=== PATIENT | male | born 1950 | race Caucasian/White ===

== ENCOUNTER 2021-12-28 14:17 | Outpatient (REF) | payer MEDICARE, SELFPAY ==
--- NOTE | ~2021-12-28 | XR_ITS ---
EXAMINATION: SACROILIAC JOINTS AND RIGHT HIP X-RAY CLINICAL INFORMATION: Sacrococcygeal disorder COMPARISON: None TECHNIQUE: 3 views of the sacroiliac joints, one view of the pelvis and 2 views of the right hip FINDINGS: Sacroiliac joints: The sacroiliac joints are normal-appearing. No evidence of erosive or proliferative arthritis is seen. Pelvis: No fracture or dislocation or bone lesion is seen. The left hip joint is normal. There is soft tissue arterial calcification. There are postsurgical changes to the lower lumbar spine. Right hip: There is severe right hip arthritis with joint space narrowing and osteophyte formation. There is soft tissue arterial calcification. XR/XR sacroiliac joint min 3V IMPRESSION: Severe right hip osteoarthritis. Postsurgical changes to the lower lumbar spine. Normal-appearing sacroiliac joints.
--- NOTE | ~2021-12-28 | XR_ITS ---
EXAMINATION: SACROILIAC JOINTS AND RIGHT HIP X-RAY CLINICAL INFORMATION: Sacrococcygeal disorder COMPARISON: None TECHNIQUE: 3 views of the sacroiliac joints, one view of the pelvis and 2 views of the right hip FINDINGS: Sacroiliac joints: The sacroiliac joints are normal-appearing. No evidence of erosive or proliferative arthritis is seen. Pelvis: No fracture or dislocation or bone lesion is seen. The left hip joint is normal. There is soft tissue arterial calcification. There are postsurgical changes to the lower lumbar spine. Right hip: There is severe right hip arthritis with joint space narrowing and osteophyte formation. There is soft tissue arterial calcification. XR/XR hip RT w PEL1V IMPRESSION: Severe right hip osteoarthritis. Postsurgical changes to the lower lumbar spine. Normal-appearing sacroiliac joints.
== END 2021-12-28 14:18 | disposition home or self-care (01) ==
LOC: HO.XRAY 14:17
PROVIDERS: PCP Internal Medicine; Visit Provider Nurse Practitioner Family
DX: M53.3 Sacrococcygeal disorders, not elsewhere classified (principal); M25.551 Pain in right hip; M54.16 Radiculopathy, lumbar region; M96.1 Postlaminectomy syndrome, not elsewhere classified; M16.11 Unilateral primary osteoarthritis, right hip
CPT/HCPCS: 72202; 73502; 99202

== ENCOUNTER → 2022-01-11 08:54 | Outpatient (BNVA) | payer MEDICARE, SELFPAY | PROVIDERS: PCP Internal Medicine; Visit Provider Orthopaedic Surgery | DX: M16.11 Unilateral primary osteoarthritis, right hip (principal) | CPT/HCPCS: 99202 ==

== ENCOUNTER → 2022-05-20 10:24 | Outpatient (BNVA) | payer MEDICARE, SELFPAY | PROVIDERS: PCP Internal Medicine; Visit Provider Psychiatry & Neurology Psychiatry | DX: M16.11 Unilateral primary osteoarthritis, right hip (principal); F32.9 Major depressive disorder, single episode, unspecified | CPT/HCPCS: 90833; 99212 ==

== ENCOUNTER → 2022-08-18 09:49 | Outpatient (BNVA) | payer MEDICARE, SELFPAY | PROVIDERS: PCP Internal Medicine; Visit Provider Orthopaedic Surgery | DX: Z13.89 Encounter for screening for other disorder (principal) ==

== ENCOUNTER → 2022-11-09 14:50 | Outpatient (BNVA) | payer MEDICARE, SELFPAY | PROVIDERS: PCP Internal Medicine; Visit Provider Psychiatry & Neurology Psychiatry | DX: F32.4 Major depressive disorder, single episode, in partial remission (principal); C64.9 Malignant neoplasm of unspecified kidney, except renal pelvis; C67.9 Malignant neoplasm of bladder, unspecified | CPT/HCPCS: 90833; 99212 ==

== ENCOUNTER 2022-12-30 06:11 | Outpatient (REF) | payer MEDICARE, SELFPAY | END 2022-12-30 06:12 | disposition home or self-care (01) | LOC: HO.HOSX 06:11 | PROVIDERS: Visit Provider Physician Assistant | DX: M16.11 Unilateral primary osteoarthritis, right hip (principal) | CPT/HCPCS: 99212 ==

== ENCOUNTER 2023-01-05 08:04 | Inpatient (IN) | payer MEDICARE, SELFPAY ==
[2022-12-29 12:04] VITALS: BP 120/61; PULSE 54; RESP 16; O2SAT 97; BMI 27.5
--- NOTE | 2022-12-29 12:31 | P.CONAN_ITS ---
Documented by User: Anaya Jay NP 12/30/22 13:28 HPI - Anesthesia Eval Consult details Narrative: PCP clearance pending 72yo M for Right Hip Total Replacement Cardiac optimized. Office eval 11/30/22 Eliquis for afib Pacer in situ for SSS Renal Cell carcinoma with immunotherapy No recent illness No chest pain. No SOB. Uses albuterol inhaler ~1 x weekly Activity limited to hip pain. Able to walk from front entrance to [facility] without symptoms PMFSH Active Problems Active Problems: All Active Problems (Updated 12/29/22 @ 11:56 by Josey Cruz RN) Right hip pain (Acute) Sacroiliac joint dysfunction (Acute) Neuropathy of right lower extremity (Acute) Right lumbar radiculopathy (Acute) Failed back syndrome of lumbar spine (Acute) Osteoarthritis of right hip (Acute) Major depressive disorder in partial remission (Acute) Upper respiratory tract infection (Acute) Bladder cancer (Acute) Renal cancer (Acute) Major depression (Acute) Past Medical History Medical History Atrial fibrillation Bladder cancer CAD (coronary artery disease) Chronic kidney disease Elevated cholesterol HTN (hypertension) Major depression Osteoarthritis Renal cancer Family History Family history of problems with anesthesia: No Surgical History Surgical History H/O colonoscopy History of heart artery stent History of permanent cardiac pacemaker placement History of right nephrectomy History of surgery Hx of cystoscopy S/P lumbar spinal fusion History of Problems with Anesthesia: No Social History Social History Are you a primary rn transitional care to a significant other at home: No Do you presently have visiting nurse or other home services: No Patient Tobacco Use Status: Former Tobacco user Quit Date: 2017 Tobacco use type: Cigarette Years Smoked: 40 Use of substances other than those prescribed or required for medical reasons: No Have you been hit, kicked, punched, or otherwise hurt by someone within the past year? If so, by whom?: No Are you DNR?: No Advance Directives: Yes ( is HCP-copy of HCP form on chart) Advance Directives Information Provided: Yes Advance Directives on File: Yes Advance Directives Date on File: 12/29/22 Recently lost weight without trying: No Eating poorly because of decreased appetite: No Nutrition Risks: No Nutritional Risk Poor oral hygiene: No (upper partial-has only 2 teeth upper, has all own teeth lower) Meds Allergies Allergy/AdvReac Type Severity Reaction Status Date / Time sulfamethoxazole Allergy Intermediate Hives Verified 01/05/23 08:18 [From Bactrim] trimethoprim [From Bactrim] Allergy Intermediate Hives Verified 01/05/23 08:18 Home Medications Medication Instructions Recorded Confirmed Last Taken Type atorvastatin 80 mg tablet 80 mg PO DAILY 12/28/21 12/28/22 01/04/23 History cetirizine 10 mg tablet 10 mg PO DAILY 08/18/22 12/28/22 01/04/23 History fluticasone propionate 50 50 mcg intranasal DAILY 08/18/22 12/28/22 01/04/23 History mcg/actuation nasal spray,suspension apixaban 5 mg tablet (Eliquis) 5 mg PO BID 11/09/22 12/28/22 01/02/23 History furosemide 40 mg tablet 40 mg PO DAILY PRN edema 11/09/22 12/29/22 01/04/23 History metoprolol succinate 50 mg 50 mg PO QAM 11/09/22 12/29/22 01/05/23 06:45 History tablet,extended release 24 hr aspirin 81 mg tablet,delayed 81 mg PO DAILY 12/28/22 12/28/22 01/04/23 History release losartan 25 mg tablet 25 mg PO QAM 12/29/22 12/29/22 01/04/23 History sertraline 100 mg tablet 200 mg PO QAM 12/29/22 12/29/22 01/05/23 06:45 History Exam Exam Date and Time: December 29, 2022 1231 Height,Weight and Vital Signs: Height 5 ft 4 in Weight 72.575 kg Last Vital Signs Pulse 54 12/29/22 12:04 Resp 16 12/29/22 12:04 BP 120/61 12/29/22 12:04 Pulse Ox 97 12/29/22 12:04 O2 Del Method Room Air 12/29/22 12:04 Pertinent Lab Results Pertinent Lab Results: Lab Results 12/29/22 12/29/22 12/29/22 Range/Units 12:20 13:08 13:15 WBC 8.4 (4.8-10.8) X10*3/uL RBC 3.95 L (4.60-5.80) X10*6/uL Hgb 11.2 L (14.0-18.0) g/dl Hct 35.3 L (42.0-52.0) % MCV 89.4 (80.0-98.0) fL MCH 28.4 (27.0-33.0) pg MCHC 31.7 (31.0-36.0) g/dl RDW 15.2 (11.0-16.0) % Plt Count 204 (160-400) X10*3/uL MPV 10.1 (9.4-12.4) fL Immature Gran % (Auto) 0.8 H (0.0-0.4) % Neut % (Auto) 76.2 H (45-73) % Lymph % (Auto) 14.1 L (20-40) % [place] % (Auto) 7.8 (2-11) % Eos % (Auto) 0.7 (0-4) % Baso % (Auto) 0.4 (0-2) % Lymph # (Auto) 1.2 (1.2-4.9) X10*3/uL [place] # (Auto) 0.7 (0.1-1.2) X10*3/uL Eos # (Auto) 0.1 (0.0-0.4) X10*3/uL Baso # (Auto) 0.0 (0.0-0.2) X10*3/uL Abs Immat Gran (auto) 0.07 H (0.00-0.03) X10*3/uL Absolute Neuts (auto) 6.4 (2.0-8.3) x10*3/uL Absolute Nucleated RBC 0.000 (0.0-0.012) X10*3/uL Nucleated RBC % (auto) 0.0 (0.0-0.2) /100WBC Sodium (135-145) mmol/L Potassium (3.3-5.1) mmol/L Chloride (96-108) mmol/L Carbon Dioxide (22-29) mmol/L Anion Gap (12-20) BUN (9-16) mg/dL Creatinine (0.5-1.4) mg/dL Estim Creat Clear Calc Estimated GFR Random Glucose (60-115) mg/dL Calcium (8.4-10.2) mg/dL Nasal Screen MRSA (PCR) NEGATIVE (Negative) Nasal S. aureus Screen NEGATIVE (Negative) Nasal MRSA/S.aureus Interp SEE NOTE Blood Type O Positive Antibody Screen NEGATIVE 12/29/22 Range/Units 13:15 WBC (4.8-10.8) X10*3/uL RBC (4.60-5.80) X10*6/uL Hgb (14.0-18.0) g/dl Hct (42.0-52.0) % MCV (80.0-98.0) fL MCH (27.0-33.0) pg MCHC (31.0-36.0) g/dl RDW (11.0-16.0) % Plt Count (160-400) X10*3/uL MPV (9.4-12.4) fL Immature Gran % (Auto) (0.0-0.4) % Neut % (Auto) (45-73) % Lymph % (Auto) (20-40) % [place] % (Auto) (2-11) % Eos % (Auto) (0-4) % Baso % (Auto) (0-2) % Lymph # (Auto) (1.2-4.9) X10*3/uL [place] # (Auto) (0.1-1.2) X10*3/uL Eos # (Auto) (0.0-0.4) X10*3/uL Baso # (Auto) (0.0-0.2) X10*3/uL Abs Immat Gran (auto) (0.00-0.03) X10*3/uL Absolute Neuts (auto) (2.0-8.3) x10*3/uL Absolute Nucleated RBC (0.0-0.012) X10*3/uL Nucleated RBC % (auto) (0.0-0.2) /100WBC Sodium 139 (135-145) mmol/L Potassium 5.3 H (3.3-5.1) mmol/L Chloride 106 (96-108) mmol/L Carbon Dioxide 24 (22-29) mmol/L Anion Gap 14 (12-20) BUN 51 H (9-16) mg/dL Creatinine 1.96 H (0.5-1.4) mg/dL Estim Creat Clear Calc 31.1 Estimated GFR 34 Random Glucose 109 (60-115) mg/dL Calcium 9.8 (8.4-10.2) mg/dL Nasal Screen MRSA (PCR) (Negative) Nasal S. aureus Screen (Negative) Nasal MRSA/S.aureus Interp Blood Type Antibody Screen Narrative Narrative: EKG 11/2022 Aflutter with V-paced rhythm Cardiac cath 10/18/22 Mild disease in left main. First diagnol 60% lesion, Mild disease <30% in RCA. Stent was widely patient. Nonischemic CMP ECHO 09/2022 LV mildly dilated. Nml LV wall thickness. Severely reduced LV systolic functio n. Global hypokinesis. Abnormal (paradoxical) septal motion c/w RV pacer. LVEF 29%. Mildly enlarged RV. Nml RV global systolic fuction. Severely dilated LA Moderate MR Mild TR PASP elevated C/W 04/2020 LV systolic function significantly decreased Pacer Interr 11/2022 [employer] - DDDR 50-130 76% AT/AF STACK SUPERVISOR >99% Airway Mallampati Class: I TM Dist: >3cm Neck ROM: Full Partial: Upper (Only 2 of pt's own teeth remain on top) Heart: RRR Lungs: Faint wheeze RUL, RLL. Clear left Assessment and Plan Assessment Anesthesia Assessment: Anesthesia Plan Discussed and PAT Visit Final Anesthetic Review Family History of Problems with Anesthesia: No History of Problems with Anesthesia: No Documented by User: Juany Simpson MD 01/05/23 10:[facility] Past Medical History Medical History Atrial fibrillation Bladder cancer CAD (coronary artery disease) Chronic kidney disease Elevated cholesterol HTN (hypertension) Major depression Osteoarthritis Renal cancer Surgical History Surgical History H/O colonoscopy History of heart artery stent History of permanent cardiac pacemaker placement History of right nephrectomy History of surgery Hx of cystoscopy S/P lumbar spinal fusion Social History Social History Are you a primary rn transitional care to a significant other at home: No Do you presently have visiting nurse or other home services: No Patient Tobacco Use Status: Former Tobacco user Quit Date: 2017 Tobacco use type: Cigarette Years Smoked: 40 Use of substances other than those prescribed or required for medical reasons: No Have you been hit, kicked, punched, or otherwise hurt by someone within the past year? If so, by whom?: No Are you DNR?: No Advance Directives: Yes ( is HCP-copy of HCP form on chart) Advance Directives Information Provided: Yes Advance Directives on File: Yes Advance Directives Date on File: 12/29/22 Recently lost weight without trying: No Eating poorly because of decreased appetite: No Nutrition Risks: No Nutritional Risk Poor oral hygiene: No (upper partial-has only 2 teeth upper, has all own teeth lower) Meds Allergies Allergy/AdvReac Type Severity Reaction Status Date / Time sulfamethoxazole Allergy Intermediate Hives Verified 01/05/23 08:18 [From Bactrim] trimethoprim [From Bactrim] Allergy Intermediate Hives Verified 01/05/23 08:18 Home Medications Medication Instructions Recorded Confirmed Last Taken Type atorvastatin 80 mg tablet 80 mg PO DAILY 12/28/21 12/28/22 01/04/23 History cetirizine 10 mg tablet 10 mg PO DAILY 08/18/22 12/28/22 01/04/23 History fluticasone propionate 50 50 mcg intranasal DAILY 08/18/22 12/28/22 01/04/23 History mcg/actuation nasal spray,suspension apixaban 5 mg tablet (Eliquis) 5 mg PO BID 11/09/22 12/28/22 01/02/23 History furosemide 40 mg tablet 40 mg PO DAILY PRN edema 11/09/22 12/29/22 01/04/23 History metoprolol succinate 50 mg 50 mg PO QAM 11/09/22 12/29/22 01/05/23 06:45 History tablet,extended release 24 hr aspirin 81 mg tablet,delayed 81 mg PO DAILY 06/12/28/22 01/04/23 History release losartan 25 mg tablet 25 mg PO QAM 12/29/22 12/29/22 01/04/23 History sertraline 100 mg tablet 200 mg PO QAM 12/29/22 12/29/22 01/05/23 06:45 History Assessment and Plan Final Anesthetic Review ASA Class: III Final Preanesthetic Review: No Changes in Pt Med Stat, Meds/Allgs Chart Reviewed, Consent Obtained/Reviewed and Anes Risks/Benef Reviewed Patient Risk: Intermediate Procedure Risk: Intermediate Anesthetic Plan Anesthetic Plan: GA Disposition: Standard PACU
[2022-12-29 13:16] LABS: MANUAL DIFF FLAG NO
[2022-12-29 14:31] LABS: MRSA Nasal PCR NEGATIVE (Negative); SA Nasal PCR NEGATIVE (Negative)
[2022-12-29 14:52] LABS: Basophils Percent Auto 0.4 % (0-2); Eosinophils Absolute Auto 0.1 X10*3/uL (0.0-0.4); Eosinophils Percent Auto 0.7 % (0-4); Hematocrit 35.3 % (42.0-52.0); Hemoglobin 11.2 g/dl (14.0-18.0); Imm Gran Abs Auto 0.07 X10*3/uL (0.00-0.03); Imm Gran Pct Auto 0.8 % (0.0-0.4); Lymphocytes Absolute Auto 1.2 X10*3/uL (1.2-4.9); Lymphocytes Percent Auto 14.1 % (20-40); Mean Corpuscular HGB Conc 31.7 g/dl (31.0-36.0); Mean Corpuscular Hemoglobin 28.4 pg (27.0-33.0); Mean Corpuscular Volume 89.4 fL (80.0-98.0); Mean Platelet Volume 10.1 fL (9.4-12.4); Monocytes Absolute Auto 0.7 X10*3/uL (0.1-1.2); Monocytes Percent Auto 7.8 % (2-11); Neutrophils Absolute Auto 6.4 x10*3/uL (2.0-8.3); Neutrophils Percent Auto 76.2 % (45-73); Platelet Count 204 X10*3/uL (160-400); Red Blood Count 3.95 X10*6/uL (4.60-5.80); Red Cell Distribution Width 15.2 % (11.0-16.0); White Blood Count 8.4 X10*3/uL (4.8-10.8)
[2022-12-29 15:31] LABS: Anion Gap 14 (12-20); Blood Urea Nitrogen 51 mg/dL (9-16); Calcium 9.8 mg/dL (8.4-10.2); Carbon Dioxide 24 mmol/L (22-29); Chloride 106 mmol/L (96-108); Creatinine Clr Calc Pharmacy 31.1; Estimated Glomerular Filt Rate 34; Glucose Random 109 mg/dL (60-115); Potassium 5.3 mmol/L (3.3-5.1); Sodium 139 mmol/L (135-145)
[2023-01-05] VITALS (8 sets, daily range): BP systolic 124–133; BP diastolic 45–70; PULSE 50–64; RESP 16–18; TEMP 36.3–36.7; O2SAT 97–99
--- NOTE | ~2023-01-05 | XR_ITS ---
EXAMINATION: XR PELVIS CLINICAL INFORMATION: Post hip replacement COMPARISON: Previous x-ray 12/28/2021 TECHNIQUE: AP view of the pelvis. FINDINGS: There is a new hip replacement in satisfactory position. No fracture or dislocation. Postoperative changes to the soft tissues. XR/XR pelvis 1-2V IMPRESSION: Satisfactory appearance of right hip replacement.
[2023-01-05] MEDS: oxyCODONE HCl ER 10 MG TAB.ER.12H PO ×2 (08:52→20:34)
[2023-01-05] MEDS: Lactated Ringers 1,000 ML 50 ML IVCONT (09:26)
[2023-01-05 09:27] LABS: Hematocrit 31.4 % (42.0-52.0); Hemoglobin 10.1 g/dl (14.0-18.0)
[2023-01-05 11:45] LABS: Anion Gap 14 (12-20); Blood Urea Nitrogen 43 mg/dL (9-16); Calcium 9.7 mg/dL (8.4-10.2); Carbon Dioxide 24 mmol/L (22-29); Chloride 108 mmol/L (96-108); Creatinine Clr Calc Pharmacy 36.5; Estimated Glomerular Filt Rate 41; Glucose Random 97 mg/dL (60-115); Potassium 5.2 mmol/L (3.3-5.1); Sodium 141 mmol/L (135-145)
--- NOTE | 2023-01-05 11:45 | MHC.SHP ---
Pre-Procedural Eval Section A Date of Service: 01/05/23 The patient is an INPATIENT: No Changes since office visit: No Cold of Flu in the past 2 weeks, No New Medical Problems, No Changes in Medication and No Patient answered all questions The History & Physical has been completed within 30 days and I have reviewed it.: Yes Section B Chief Complaint: s/p RTHA Allergies: Allergies Allergy/AdvReac Type Severity Reaction Status Date / Time sulfamethoxazole Allergy Intermediate Hives Verified 01/05/23 08:18 [From Bactrim] trimethoprim [From Bactrim] Allergy Intermediate Hives Verified 01/05/23 08:18 Plan I have reviewed the history and physical and performed a pertinent physical examination on my patient. No changes have occurred unless specified. Time Spent With Patient Time: Total time managing care of this patient today ____ minutes.
--- NOTE | 2023-01-05 14:31 | P.BOP_ITS ---
Brief Operative Note Date of Service: 01/05/23 Pre-op diagnosis: right hip OA Post-op diagnosis: same Procedure: Right BECCA Implants: Emir Trident2 58 with 2 35 mm screws Emir Accolade2 #5 127 deg with +4/MDM Surgeon: Leopoldo Torres MD Anesthesia: GETA and local Was an Detention Attendant used for this Procedure?: Yes Detention Attendant: Gracie Choi Estimated blood loss (mL): 175 IV fluids (mL): 1,000 Pathology: other Condition: stable Disposition: PACU
--- NOTE | 2023-01-05 14:56 | PHA.MEDREC ---
Pharmacy Consult ? Medication Reconciliation RN has completed the medication reconciliation, pharmacy reviewed.
--- NOTE | 2023-01-05 15:31 | P.CONHOSP_ITS ---
History of Present Illness Data of Consult Service Date: 01/05/23 Requesting physician: Leopoldo Torres Primary Care Provider: Josette Fajardo MD HPI Reason for consult: medical management 72-year-old male with history of paroxysmal atrial fibrillation anticoagulated with Eliquis last taken on 01/02, s/p pacemaker, bladder cancer currently on immunotherapy following with Dr. Whitaker, hyperlipidemia, hypertension, history of renal cancer s/p right nephroureterectomy 2021, CKD stage 3, and coronary artery disease admitted to Orthopedic surgery for management of osteoarthritis of the right hip s/p right BECCA with consult placed is for medicine for medical management. The patient is currently reporting mild pain in the right hip but otherwise has no complaints. He denies any alcohol use, cigarette smoking, or illicit drug use. Review of Systems Review of Systems: General: No fevers, malaise, unintentional weight loss HEENT: No blurred vision, diplopia. No sore throat, nasal congestion, rhinor ravi, sinus pain, ear pain Cardiovascular: No chest pain, palpitations, or leg edema Respiratory: No shortness of breath, wheezing, cough GI: No abdominal pain, nausea, vomiting, diarrhea, constipation, melena, hematochezia : No dysuria, hematuria, increased urinary frequency, decreased urinary output MSK: No myalgia, back pain. +right hip pain Neuro: No headaches, weakness, paresthesias Skin: No rashes or lesions [facility] Medical History Atrial fibrillation Bladder cancer CAD (coronary artery disease) Chronic kidney disease Elevated cholesterol HTN (hypertension) Major depression Osteoarthritis Renal cancer Surgical History H/O colonoscopy History of heart artery stent History of permanent cardiac pacemaker placement History of right nephrectomy History of surgery Hx of cystoscopy S/P lumbar spinal fusion Social History Household Members: Spouse Housing: House Are you a primary health care sanitary technician to a significant other at home: No Do you presently have visiting nurse or other home services: No Patient Tobacco Use Status: Former Tobacco user Quit Date: 2017 Tobacco use type: Cigarette Years Smoked: 40 Advance Directives Date on File: 06/14/23 Meds Allergies Allergy/AdvReac Type Severity Reaction Status Date / Time sulfamethoxazole Allergy Intermediate Hives Verified 01/05/23 08:18 [From Bactrim] trimethoprim [From Bactrim] Allergy Intermediate Hives Verified 01/05/23 08:18 Active Medications: Current Medications Acetaminophen (Acetaminophen 325 Mg Tablet) 650 mg PO Q6H PRN PRN Reason: Pain, Mild (Pain Scale 1-3) Albuterol Sulfate (Albuterol Sulfate 90 Mcg 8 Gm Inhaler) 1 puff INHALE QID PRN PRN Reason: shortness of breath or wheezing Atorvastatin Calcium (Atorvastatin Calcium 80 Mg Tablet) 80 mg PO DAILY [facility] Celecoxib (Celecoxib 200 Mg Capsule) 200 mg PO BID [facility] Docusate Sodium (Docusate Sodium 100 Mg Capsule) 100 mg PO BID [facility] Fluticasone Propionate (Fluticasone Propionate Nasal 16 Gm [place]) 1 spray NOSTRIL-B DAILY [facility] Furosemide (Furosemide 40 Mg Tablet) 40 mg PO DAILY PRN; Protocol PRN Reason: edema Hydromorphone HCl (Hydromorphone Hcl 0.5 Mg/0.5 Ml Syringe) 0.25 mg IVPUSH Q4H PRN; Protocol PRN Reason: Pain, Severe (Pain Scale 7-10) Lactated Ringer's (Lr) 1,000 mls @ 100 mls/hr IVCONT .Q10H [facility] Cefazolin Sodium/Dextrose (Ancef) 2 gm in 50 mls @ 100 mls/hr IV ONCE@1800 VIVEK Stop: 01/05/23 18:29 Loratadine (Loratadine 10 Mg Tablet) 10 mg PO DAILY [facility] Lorazepam (Lorazepam 0.5 Mg Tablet) 0.5 mg PO BID PRN PRN Reason: anxiety Losartan Potassium (Losartan Potassium 25 Mg Tablet) 25 mg PO DAILY [facility]; Protocol Metoprolol Succinate (Metoprolol Succinate Er 50 Mg Tab.Er.24h) 50 mg PO DAILY [facility]; Protocol Ondansetron HCl (Ondansetron Hcl 4 Mg/2 Ml Vial) 4 mg IVPUSH Q8H PRN PRN Reason: Nausea and Vomiting Oxycodone HCl (Oxycodone Hcl Er 10 Mg Tab.Er.12h) 10 mg PO BID [facility] Oxycodone HCl (Oxycodone Hcl Immed Release 5 Mg Tablet) 5 mg PO Q4H PRN PRN Reason: Pain, Moderate(Pain Scale 4-6) Sertraline HCl (Sertraline Hcl 100 Mg Tablet) 200 mg PO DAILY [facility] Sodium Chloride (0.9 % Sodium Chloride Flush 3 Ml Syringe) 3 ml IVFLUSH QSHIFT [facility] Home Medications Medication Instructions Recorded Confirmed Last Taken Type atorvastatin 80 mg tablet 80 mg PO DAILY 12/28/21 12/28/22 01/04/23 History cetirizine 10 mg tablet 10 mg PO DAILY 08/18/22 12/28/22 01/04/23 History fluticasone propionate 50 50 mcg intranasal DAILY 08/18/22 12/28/22 01/04/23 History mcg/actuation nasal spray,suspension apixaban 5 mg tablet (Eliquis) 5 mg PO BID 11/09/22 12/28/22 01/02/23 History furosemide 40 mg tablet 40 mg PO DAILY PRN edema 11/09/22 12/29/22 01/04/23 History metoprolol succinate 50 mg 50 mg PO QAM 11/09/22 12/29/22 01/05/23 06:45 History tablet,extended release 24 hr aspirin 81 mg tablet,delayed 81 mg PO DAILY 12/28/22 12/28/22 01/04/23 History release losartan 25 mg tablet 25 mg PO QAM 12/29/22 12/29/22 01/04/23 History sertraline 100 mg tablet 200 mg PO QAM 12/29/22 12/29/22 01/05/23 06:45 History Physical Exam Vital Signs and Narrative: Vital Signs: Last Vital Signs Temp 97.4 F 01/05/23 15:07 Pulse 53 01/05/23 15:07 Resp 16 01/05/23 15:07 BP 126/63 01/05/23 15:07 Pulse Ox 97 01/05/23 15:07 O2 Del Method Room Air 01/05/23 15:07 BMI result Body Mass Index 30.0 Constitutional - Awake and Alert, No apparent distress Eyes - PERRLA, EOMI Cardiovascular - S1S2, RRR, No edema Respiratory - Normal lung expansion, Normal respiratory effort, No respiratory distress, CTA bilaterally Gastrointestinal - NT / ND; +BS; No rebound or guarding Extremities - no calf tenderness bilaterally, no swelling Skin - Warm/Dry Neurological - Alert & oriented x3 Psychological - Appropriate affect Results Labs 01/05/23 09:04 06/21/23 10:55 Labs: Laboratory Results - last 24 hr 01/05/23 01/05/23 10:55 10:55 Anion Gap Cancelled 14 Estim Creat Clear Calc 36.5 Estimated GFR 41 Random Glucose 97 Calcium 9.7 Assessment and Plan (1) Osteoarthritis of right hip: Status: Acute Plan 72-year-old male with history of paroxysmal atrial fibrillation anticoagulated with Eliquis last taken on 01/02, s/p pacemaker, bladder cancer currently on immunotherapy following with Dr. Whitaker, hyperlipidemia, hypertension, history of renal cancer s/p right nephroureterectomy 2021, CKD stage 3, and coronary artery disease admitted to Orthopedic surgery for management of osteoarthritis of the right hip s/p right BECCA with consult placed is for medicine for medical management #OA right hip s/p right BECCA POD 0 -plan per ortho surgery #Paroxysmal atrial fibrillation- rate controlled s/p pacer maker -resume eliquis tomorrow per ortho surgery -continue metoprolol #HTN- reasonably controlled -continue metoprolol, hold losartan to prevent postoperative hypotension #Bladder cancer -outpt follow up #CKD stage 3 -renal function baseline #HLD -continue statin Thank you for this consult will continue following Time Spent With Patient Time: Total time managing care of this patient today ____ minutes.
[2023-01-05] MEDS: HYDROmorphone HCl 0.5 MG/0.5 ML SYRINGE 0.25 MG IVPUSH ×2 (15:43→22:19)
[2023-01-05] MEDS: Lactated Ringers 1,000 ML 100 ML IVCONT (15:44)
[2023-01-05] MEDS: ceFAZolin Sodium/Dextrose,Iso 2 GM/50 ML PIGGYBACK IV (17:03)
[2023-01-05] MEDS: oxyCODONE HCl Immed Release 5 MG TABLET PO (20:33)
[2023-01-05] MEDS: Docusate Sodium 100 MG CAPSULE PO (20:34)
[2023-01-05] MEDS: Celecoxib 200 MG CAPSULE PO (20:34)
[2023-01-06] VITALS (8 sets, daily range): BP systolic 105–131; BP diastolic 56–70; PULSE 52–55; RESP 16–18; TEMP 36.1–36.7; O2SAT 95–98
[2023-01-06] MEDS: Lactated Ringers 1,000 ML 100 ML IVCONT ×3 (01:30→20:34)
[2023-01-06] MEDS: oxyCODONE HCl Immed Release 5 MG TABLET PO ×2 (01:39→17:59)
[2023-01-06] MEDS: HYDROmorphone HCl 0.5 MG/0.5 ML SYRINGE 0.25 MG IVPUSH ×2 (04:19→08:11)
[2023-01-06] MEDS: LORazepam 0.5 MG TABLET PO ×2 (04:20→21:57)
[2023-01-06 06:11] LABS: MANUAL DIFF FLAG NO
[2023-01-06 06:19] LABS: Basophils Percent Auto 0.2 % (0-2); Eosinophils Percent Auto 0.1 % (0-4); Hematocrit 24.8 % (42.0-52.0); Hemoglobin 7.9 g/dl (14.0-18.0); Imm Gran Abs Auto 0.04 X10*3/uL (0.00-0.03); Imm Gran Pct Auto 0.5 % (0.0-0.4); Lymphocytes Percent Auto 12.7 % (20-40); Mean Corpuscular HGB Conc 31.9 g/dl (31.0-36.0); Mean Corpuscular Hemoglobin 28.5 pg (27.0-33.0); Mean Corpuscular Volume 89.5 fL (80.0-98.0); Mean Platelet Volume 9.9 fL (9.4-12.4); Monocytes Absolute Auto 0.8 X10*3/uL (0.1-1.2); Monocytes Percent Auto 9.3 % (2-11); Neutrophils Absolute Auto 6.2 x10*3/uL (2.0-8.3); Neutrophils Percent Auto 77.2 % (45-73); Platelet Count 159 X10*3/uL (160-400); Red Blood Count 2.77 X10*6/uL (4.60-5.80); Red Cell Distribution Width 15.2 % (11.0-16.0); White Blood Count 8.1 X10*3/uL (4.8-10.8)
[2023-01-06 06:38] LABS: Anion Gap 12 (12-20); Blood Urea Nitrogen 39 mg/dL (9-16); Calcium 9.3 mg/dL (8.4-10.2); Carbon Dioxide 23 mmol/L (22-29); Chloride 106 mmol/L (96-108); Creatinine Clr Calc Pharmacy 35.2; Estimated Glomerular Filt Rate 37; Glucose Fasting 111 mg/dL (60-99); Potassium 4.9 mmol/L (3.3-5.1); Sodium 136 mmol/L (135-145)
--- NOTE | 2023-01-06 08:49 | PM.PNORT ---
Subjective Subjective Date of Service: 01/06/23 Interval history: POD1 s/p RTHA. Patient is resting in bed comfortably. No overnight events. Pain is well managed. H/H did drop although he is asymptomatic. No additional complaints. Physical Exam Vital Signs: Vital Signs: Last Vital Signs Temp 98.1 F 01/06/23 07:41 Pulse 53 01/06/23 07:41 Resp 16 01/06/23 07:41 BP 114/58 L 01/06/23 07:41 Pulse Ox 97 01/06/23 07:41 O2 Del Method Room Air 01/06/23 07:41 BMI result Body Mass Index 30.0 Const: General: cooperative, healthy appearing and no acute distress Resp: Effort & Inspection: normal respiratory effort and able to speak in complete sentences Cardio: Rate: regular rate Peripheral pulses: Peripheral pulses 2+ throughout GI: Palpation (GI): Soft to palpation Skin: Lesions: no lesions Rashes: no rashes Extrem: Other: Right hip dressing is c/d/i. NVI. Procedures Date of Service Date of Service: 01/06/23 Progress Note: A&P Assessment and plan (1) S/P total right hip arthroplasty: Status: Acute Plan Continue pain mgmnt Resume Eliquis today dvt ppx begin PT for RTHA - Posterior precautions Dispo planning-Pending PT eval, pain mgmnt Time Spent With Patient Time: Total time managing care of this patient today ____ minutes. Quality Stroke Does the patient have a stroke diagnosis?: No VTE Prior VTE?: Yes VTE Risk Level:: Medical - moderate - high VTE Device Contraindication: N/A - Device Ordered VTE Drug Contraindication: N/A - Med Ordered
[2023-01-06] MEDS: oxyCODONE HCl ER 10 MG TAB.ER.12H PO ×2 (09:13→20:24)
[2023-01-06] MEDS: Losartan Potassium 25 MG TABLET PO (09:14)
[2023-01-06] MEDS: Docusate Sodium 100 MG CAPSULE PO ×2 (09:14→20:24)
[2023-01-06] MEDS: Metoprolol Succinate ER 50 MG TAB.ER.24H PO (09:15)
[2023-01-06] MEDS: Celecoxib 200 MG CAPSULE PO ×2 (09:15→20:24)
[2023-01-06] MEDS: Loratadine 10 MG TABLET PO (09:15)
[2023-01-06] MEDS: Sertraline HCL 100 MG TABLET 200 MG PO (09:16)
[2023-01-06] MEDS: Fluticasone Propionate Nasal 16 GM SPRAY 1 SPRAY NOSTRIL-B (09:44)
[2023-01-06] MEDS: Atorvastatin Calcium 80 MG TABLET PO (09:51)
--- NOTE | 2023-01-06 11:31 | P.PNIM_ITS ---
Subjective Subjective Date of Service: 01/06/23 Interval History: seen and examined this morning follow up for medical consultation pod #1 s/p right BECCA. had pain overnight, improved this am; seen ambulating with PT/OT denies hematuria, rectal bleeding denies dizziness, sob, chest pain Review of Systems Review of Systems: Yes all other systems are reviewed and are negative Constitutional Constitutional: Denies chills and Denies fever(s) ENT Ears, Nose, Mouth, and Throat: Denies dizziness Cardiovascular Cardiovascular: Denies chest pain, Denies palpitations and Denies dyspnea Respiratory Respiratory: Denies cough and Denies dyspnea Gastrointestinal Gastrointestinal: Denies abdominal pain, Denies nausea and Denies vomiting Neurologic Neurologic: Denies dizziness Endocrine Endocrine: Denies palpitations Physical Exam Vital Signs: Vital Signs: Last Vital Signs Temp 98.0 F 01/06/23 11:28 Pulse 52 01/06/23 11:28 Resp 16 01/06/23 11:28 BP 117/57 L 01/06/23 11:28 Pulse Ox 97 01/06/23 07:41 O2 Del Method Room Air 01/06/23 07:41 BMI result Body Mass Index 30.0 Const: General: cooperative, comfortable, no acute distress, alert and awake Nutritional Appearance: average body habitus Orientation/consciousness: patient oriented x3 Resp: Effort & Inspection: normal respiratory effort, able to speak in complete sentences, no respiratory distress and no use of accessory muscles Auscultation: clear to auscultation bilaterally Cardio: Rate: regular rate Heart sounds: S1 normal heart sound present and S2 normal heart sound present GI: Inspection: No distended Palpation (GI): Soft to palpation and nontender Neuro: General: patient oriented x3 and CN's II-XI intact bilaterally Extrem: Other: right hip bandage with mild staininbg Objective Data Active Medications Acetaminophen (Acetaminophen 325 Mg Tablet) 650 mg PO Q6H PRN PRN Reason: Pain, Mild (Pain Scale 1-3) Albuterol Sulfate (Albuterol Sulfate 90 Mcg 8 Gm Inhaler) 1 puff INHALE QID PRN PRN Reason: shortness of breath or wheezing Apixaban (Apixaban 5 Mg Tablet) 5 mg PO BID [facility] Atorvastatin Calcium (Atorvastatin Calcium 80 Mg Tablet) 80 mg PO DAILY [facility] Last Admin: 01/06/23 09:51 Dose: 80 mg Documented By: EVER Celecoxib (Celecoxib 200 Mg Capsule) 200 mg PO BID [facility] Last Admin: 01/06/23 09:15 Dose: 200 mg Documented By: EVER Docusate Sodium (Docusate Sodium 100 Mg Capsule) 100 mg PO BID [facility] Last Admin: 01/06/23 09:14 Dose: 100 mg Documented By: EVER Fluticasone Propionate (Fluticasone Propionate Nasal 16 Gm [place]) 1 spray NOSTRIL-B DAILY [facility] Last Admin: 01/06/23 09:44 Dose: 1 spray Documented By: EVER Furosemide (Furosemide 40 Mg Tablet) 40 mg PO DAILY PRN; Protocol PRN Reason: edema Hydromorphone HCl (Hydromorphone Hcl 0.5 Mg/0.5 Ml Syringe) 0.25 mg IVPUSH Q4H PRN; Protocol PRN Reason: Pain, Severe (Pain Scale 7-10) Last Admin: 01/06/23 08:11 Dose: 0.25 mg Documented By: EVER Lactated Ringer's (Lr) 1,000 mls @ 100 mls/hr IVCONT .Q10H [facility] Last Admin: 01/06/23 01:30 Dose: 100 mls/hr Documented By: ALLISON Loratadine (Loratadine 10 Mg Tablet) 10 mg PO DAILY [facility] Last Admin: 01/06/23 09:15 Dose: 10 mg Documented By: EVER Lorazepam (Lorazepam 0.5 Mg Tablet) 0.5 mg PO BID PRN PRN Reason: anxiety Last Admin: 01/06/23 04:20 Dose: 0.5 mg Documented By: ALLISON Losartan Potassium (Losartan Potassium 25 Mg Tablet) 25 mg PO DAILY [facility]; Protocol Last Admin: 01/06/23 09:14 Dose: 25 mg Documented By: EVER Metoprolol Succinate (Metoprolol Succinate Er 50 Mg Tab.Er.24h) 50 mg PO DAILY [facility]; Protocol Last Admin: 01/06/23 09:15 Dose: 50 mg Documented By: EVER Ondansetron HCl (Ondansetron Hcl 4 Mg/2 Ml Vial) 4 mg IVPUSH Q8H PRN PRN Reason: Nausea and Vomiting Oxycodone HCl (Oxycodone Hcl Er 10 Mg Tab.Er.12h) 10 mg PO BID [facility] Last Admin: 01/06/23 09:13 Dose: 10 mg Documented By: EVER Oxycodone HCl (Oxycodone Hcl Immed Release 5 Mg Tablet) 5 mg PO Q4H PRN PRN Reason: Pain, Moderate(Pain Scale 4-6) Last Admin: 01/06/23 01:39 Dose: 5 mg Documented By: ALLISON Sertraline HCl (Sertraline Hcl 100 Mg Tablet) 200 mg PO DAILY [facility] Last Admin: 01/06/23 09:16 Dose: 200 mg Documented By: EVER Sodium Chloride (0.9 % Sodium Chloride Flush 3 Ml Syringe) 3 ml IVFLUSH QSHIFT [facility] Last Admin: 01/06/23 08:12 Dose: Not Given Documented By: EVER Non-Admin Reason: IV Running Labs 01/06/23 05:34 01/06/23 05:34 Labs: Laboratory Results - last 24 hr 01/05/23 01/06/23 01/06/23 10:55 05:34 05:34 MCV 89.5 MCH 28.5 MCHC 31.9 RDW 15.2 Plt Count 159 L MPV 9.9 Immature Gran % (Auto) 0.5 H Neut % (Auto) 77.2 H Lymph % (Auto) 12.7 L [place] % (Auto) 9.3 Eos % (Auto) 0.1 Baso % (Auto) 0.2 Lymph # (Auto) 1.0 L [place] # (Auto) 0.8 Eos # (Auto) 0.0 Baso # (Auto) 0.0 Abs Immat Gran (auto) 0.04 H Absolute Neuts (auto) 6.2 Absolute Nucleated RBC 0.000 Nucleated RBC % (auto) 0.0 Anion Gap 14 12 Estim Creat Clear Calc 36.5 35.2 Estimated GFR 41 37 Random Glucose 97 Fasting Glucose 111 H Calcium 9.7 9.3 Blood Type Antibody Screen Crossmatch 01/06/23 09:09 MCV MCH MCHC RDW Plt Count MPV Immature Gran % (Auto) Neut % (Auto) Lymph % (Auto) [place] % (Auto) Eos % (Auto) Baso % (Auto) Lymph # (Auto) [place] # (Auto) Eos # (Auto) Baso # (Auto) Abs Immat Gran (auto) Absolute Neuts (auto) Absolute Nucleated RBC Nucleated RBC % (auto) Anion Gap Estim Creat Clear Calc Estimated GFR Random Glucose Fasting Glucose Calcium Blood Type O Positive Antibody Screen NEGATIVE Crossmatch See Detail Assessment and Plan (1) S/P total right hip arthroplasty: Status: Acute (2) Anemia: Status: Acute Plan 72-year-old male with history of paroxysmal atrial fibrillation anticoagulated with Eliquis last taken on 01/02, s/p pacemaker, bladder cancer currently on immunotherapy following with Dr. Whitaker, hyperlipidemia, hypertension, history of renal cancer s/p right nephroureterectomy 2021, CKD stage 3, and coronary artery disease admitted to Orthopedic surgery for management of osteoarthritis of the right hip s/p right BECCA with consult placed for Hospitalist service for medical management POD #1 s/p right BECCA for OA plan per ortho surgery normocytic anemia secondary to acute blood loss from surgery pt asymptomatic. vitals stable transfuse 1 unit follow cbc Paroxysmal atrial fibrillation- rate controlled s/p pacer maker eliquis resumed today continue metoprolol HTN- reasonably controlled continue metoprolol, hold losartan to prevent postoperative hypotension Bladder cancer outpt follow up CKD stage 3 renal function baseline CAD -continue statin, BB, ASA on hold for surgery Mood continue sertraline, ativan Thank you for allowing us to participate in the care of this patient, we will continue to follow along with you Time Spent With Patient Time: Total time managing care of this patient today ____ minutes. Quality Stroke Does the patient have a stroke diagnosis?: No VTE Prior VTE?: Yes VTE Risk Level:: Medical - moderate - high VTE Device Contraindication: N/A - Device Ordered VTE Drug Contraindication: N/A - Med Ordered
--- NOTE | 2023-01-06 13:23 | MHC.CM.PN ---
CM RECEIVED A CALL FROM [facility]IC[facility]ST[facility], WHO REPORTS THIS PT WAS RECENTLY ACTIVE WITH THEM AND THEY ARE ABLE TO PROVIDE SERVICES IF NEEDED AT DC. PT WILL NEED HOME PT/OT/SN, REFERRAL PLACED
--- NOTE | 2023-01-06 13:58 | HO.POSTANES ---
Post Anesthesia Evaluation Post Anesthesia Evaluation Date of Service: 01/06/23 Vital Signs: Vital Signs Temp Pulse Resp BP Pulse Ox O2 Del Method 01/06/23 11:28 98.0 F 52 16 117/57 L 01/06/23 11:13 97.6 F 52 16 105/70 01/06/23 07:41 98.1 F 53 16 114/58 L 97 Room Air 01/06/23 04:00 96.9 F 53 16 124/58 L 97 Room Air Anesthesia: General Mental Status: Awake Pain Control: Satisfactory Nausea/Vomiting: None Hydration: Adequate Anesthesia-Related Issues: No Anes. Related Issues
[2023-01-06] MEDS: Apixaban 5 MG TABLET PO ×2 (14:49→20:25)
[2023-01-06] MEDS: Acetaminophen 325 MG TABLET 650 MG PO ×2 (14:49→21:58)
--- NOTE | 2023-01-06 15:59 | MHC.CM.PN ---
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
[2023-01-06] MEDS: 0.9 % Sodium Chloride Flush 3 ML SYRINGE IVFLUSH (20:25)
[2023-01-07] VITALS (12 sets, daily range): BP systolic 105–134; BP diastolic 55–64; PULSE 51–63; RESP 16–20; TEMP 36.2–36.6; O2SAT 92–98
[2023-01-07 05:20] LABS: MANUAL DIFF FLAG NO
[2023-01-07 05:30] LABS: Basophils Percent Auto 0.3 % (0-2); Eosinophils Absolute Auto 0.1 X10*3/uL (0.0-0.4); Eosinophils Percent Auto 1.9 % (0-4); Hematocrit 25.5 % (42.0-52.0); Hemoglobin 8.2 g/dl (14.0-18.0); Imm Gran Abs Auto 0.03 X10*3/uL (0.00-0.03); Imm Gran Pct Auto 0.5 % (0.0-0.4); Lymphocytes Absolute Auto 0.8 X10*3/uL (1.2-4.9); Mean Corpuscular HGB Conc 32.2 g/dl (31.0-36.0); Mean Corpuscular Hemoglobin 29.3 pg (27.0-33.0); Mean Corpuscular Volume 91.1 fL (80.0-98.0); Mean Platelet Volume 9.9 fL (9.4-12.4); Monocytes Absolute Auto 0.6 X10*3/uL (0.1-1.2); Monocytes Percent Auto 9.7 % (2-11); Neutrophils Absolute Auto 4.3 x10*3/uL (2.0-8.3); Neutrophils Percent Auto 73.6 % (45-73); Platelet Count 131 X10*3/uL (160-400); Red Cell Distribution Width 15.5 % (11.0-16.0); White Blood Count 5.8 X10*3/uL (4.8-10.8)
[2023-01-07 05:36] LABS: Anion Gap 11 (12-20); Blood Urea Nitrogen 38 mg/dL (9-16); Carbon Dioxide 25 mmol/L (22-29); Chloride 108 mmol/L (96-108); Creatinine Clr Calc Pharmacy 34.4; Estimated Glomerular Filt Rate 36; Glucose Fasting 125 mg/dL (60-99); Potassium 4.6 mmol/L (3.3-5.1); Sodium 139 mmol/L (135-145)
[2023-01-07] MEDS: oxyCODONE HCl ER 10 MG TAB.ER.12H PO (07:05)
[2023-01-07] MEDS: oxyCODONE HCl Immed Release 5 MG TABLET PO (07:05)
[2023-01-07] MEDS: Apixaban 5 MG TABLET PO (07:05)
[2023-01-07] MEDS: Metoprolol Succinate ER 50 MG TAB.ER.24H PO (07:05)
[2023-01-07] MEDS: Losartan Potassium 25 MG TABLET PO (07:05)
[2023-01-07] MEDS: Docusate Sodium 100 MG CAPSULE PO (07:06)
[2023-01-07] MEDS: Celecoxib 200 MG CAPSULE PO (07:06)
[2023-01-07] MEDS: Sertraline HCL 100 MG TABLET 200 MG PO (07:06)
[2023-01-07] MEDS: Atorvastatin Calcium 80 MG TABLET PO (07:06)
[2023-01-07] MEDS: Loratadine 10 MG TABLET PO (07:07)
--- NOTE | 2023-01-07 07:24 | P.DS_ITS ---
DS: Providers Provider Date of Service: 01/07/23 Date of admission: 01/05/23 08:04 Primary care physician: Josette Fajardo MD Consults: 01/05/23 15:03 Consult to Hospitalist Routine Comment: Consulting Provider: Hospitalist Reason For Exam: routine medical management DS: Diagnosis Discharge Diagnosis (1) S/P total right hip arthroplasty: Status: Acute (2) Anemia: Status: Acute DS: Summary Hospital Course Hospital Course: The patient underwent a successful right total hip arthroplasty, they were transferred to PACU and then to the floor to recover. During their stay, their vitals were stable, afebrile at 97.9. H/H POD1 was 7.9/23.1 and patient was transfused two units. POD2 H/H 8.2/25.5, he was again transfused 2 units. POD 1 he resumed Eliquis 5mg BID for DVT ppx, they also received Physical Therapy services twice a day. Prior to discharge, their dressing was changed, incision clean dry and intact, new Aquacel dressing applied and the plan was to be discharged home with [facility] services. Time Spent with Patient Time attestation: Total time managing care of this patient today ____ minutes. Discharge coordination time: Less than 30 minutes Quality: Safe Use of Opioids Does Pt have an Active Cancer Diagnosis on the Problem List?: No Quality: Stroke Does the patient have a stroke diagnosis?: No Physical Exam Vital Signs: Vital Signs: Last Vital Signs Temp 97.9 F 01/07/23 04:00 Pulse 63 01/07/23 04:00 Resp 16 01/07/23 04:00 BP 105/55 L 01/07/23 04:00 Pulse Ox 92 01/07/23 04:00 O2 Del Method Room Air 01/07/23 04:00 BMI result Body Mass Index 30.0 Const: General: cooperative, healthy appearing and no acute distress Resp: Effort & Inspection: normal respiratory effort and able to speak in complete sentences Cardio: Rate: regular rate Peripheral pulses: Peripheral pulses 2+ throughout GI: Palpation (GI): Soft to palpation Skin: Lesions: no lesions Rashes: no rashes Extrem: Other: Right hip Aquacel is c/d/i. Able to dorsi/plantarflex. NVI. DS: Data Data Completed and Pending Pending studies at discharge: Pending at discharge 01/05/23 14:05 Surgical [PTH] Routine Labs on day of discharge: Laboratory Results - last 24 hr 01/06/23 01/07/23 01/07/23 09:09 05:03 05:03 WBC 5.8 RBC 2.80 L Hgb 8.2 L Hct 25.5 L MCV 91.1 MCH 29.3 MCHC 32.2 RDW 15.5 Plt Count 131 L MPV 9.9 Immature Gran % (Auto) 0.5 H Neut % (Auto) 73.6 H Lymph % (Auto) 14.0 L [place] % (Auto) 9.7 Eos % (Auto) 1.9 Baso % (Auto) 0.3 Lymph # (Auto) 0.8 L [place] # (Auto) 0.6 Eos # (Auto) 0.1 Baso # (Auto) 0.0 Abs Immat Gran (auto) 0.03 Absolute Neuts (auto) 4.3 Absolute Nucleated RBC 0.000 Nucleated RBC % (auto) 0.0 Sodium 139 Potassium 4.6 Chloride 108 Carbon Dioxide 25 Anion Gap 11 L BUN 38 H Creatinine 1.84 H Estim Creat Clear Calc 34.4 Estimated GFR 36 Fasting Glucose 125 H Calcium 9.0 Blood Type O Positive Antibody Screen NEGATIVE Crossmatch See Detail Discharge Plan Discharge Anticipated Discharge Date/Time: 01/07/23 14:00 Patient Disposition: Home Health Service Discharge Diagnosis: s/p RTHA Referrals: Yessica CASTELLANOS [Outside] - 1 Week Bre Lobo PA-C [Physician [employer]] - 01/20/23 1:30 pm Discharge Medications: New celecoxib 200 mg Capsule 200 mg PO BID 30 Days Qty: 60 0RF acetaminophen 325 mg Tablet 650 mg PO Q6H PRN (Reason: Pain, Mild (Pain Scale 1-3)) 30 Days Qty: 240 0RF docusate sodium 100 mg Capsule 100 mg PO BID 30 Days Qty: 60 0RF oxycodone 5 mg Tablet 5 mg PO Q4H PRN (Reason: Pain, Moderate(Pain Scale 4-6)) 7 Days Qty: 42 0RF Rx Instructions: Partial Fill upon patient request. Continued (DME) walker Misc See Rx Instructions .MEDSUPPLY Qty: 1 0RF Rx Instructions: Folding Front wheeled walker aspirin 81 mg Tablet,Delayed Release (Dr/Ec) 81 mg PO DAILY losartan 25 mg tablet 25 mg PO QAM sertraline 100 mg tablet 200 mg PO QAM albuterol sulfate [Ventolin HFA] 90 mcg/actuation HFA aerosol inhaler 1 inh inhalation QID PRN (Reason: shortness of breath or wheezing) Qty: 8.5 1RF atorvastatin 80 mg tablet 80 mg PO DAILY (DME) miscellaneous medical supply [facility] See Rx Instructions .Route Qty: 1 0RF Rx Instructions: As directed Eliquis 5 mg tablet 5 mg PO BID furosemide 40 mg tablet 40 mg PO DAILY PRN (Reason: edema) metoprolol succinate 50 mg tablet extended release 24 hr 50 mg PO QAM lorazepam 1 mg tablet 0.5 mg PO BID PRN (Reason: anxiety) Qty: 60 3RF fluticasone propionate 50 mcg/actuation spray,suspension 50 mcg intranasal DAILY cetirizine 10 mg tablet 10 mg PO DAILY Discharge Orders: Discharge Order (Routine); Ordered 01/07/23 Ordered By: Gracie Choi Diet: Advance to usual diet Activity on Discharge: Use cane or walker Stand Alone Forms: Patient Portal Discharge page Care Plan Goals: Restore fxn to right hip Health Concerns: None Plan of Treatment: Physical Therapy for total hip arthroplasty: posterior precautions, gait training, ROM, strength Limit stair climbing No showering, no tub bath-keep dressing clean, dry and intact No driving x6 weeks Continue Eliquis for DVT ppx Follow up with [facility] in 2 weeks Assessment: Stable for d/c
--- NOTE | 2023-01-07 07:27 | W.MHC.F2F ---
Service Date Service Date: 01/07/23 Encounter Date of encounter: 01/07/23 Reasons for Services Signs and symptoms assessed: S/p RTHA. Pt. is considered homebound due to recent surgery. Unable to drive, poor balance, poor gait mechanics. Reason for physical therapy: home safety and mobility, therapeutic exercises, restore joint function, gait/transfer training, assess need for DME and ADL training Reason for occupational therapy: home safety and mobility, therapeutic exercises, restore joint function, gait/transfer training, assess need for DME and ADL training Homebound: Leaving the home is medically contraindicated at this time without the asist of a device and/or another person due th the listed conditions above and below. Reason homebound: unsteady gait / fall risk, leg weakness, pain with ambulation, pain with transfers, poor balance / fall risk and unable to drive Certification: Based on the above findings, I certify that this patient is confined to the home and needs intermittent longterm care, physical therapy and/or speech therapy, or continues to need occupational therapy. The patient is under my care, and I have initiated the establishment of the plan of care. The patient will be followed by a physician who will periodically review the plan of care. Time Spent With Patient Time: Total time managing care of this patient today ____ minutes.
--- NOTE | 2023-01-07 08:30 | MHC.CM.PN ---
PT WILL DC HOME TODAY WITH [facility] FAMILY WILL TRANSPORT
[2023-01-07] MEDS: Lactated Ringers 1,000 ML 100 ML IVCONT (09:49)
[2023-01-07] MEDS: 0.9 % Sodium Chloride Flush 3 ML SYRINGE IVFLUSH (09:50)
--- NOTE | 2023-01-07 10:28 | HO.PM.IMPN ---
Subjective Subjective Date of Service: 01/07/23 Interval History: Seen and examined at bedside today. POD #2. doing well, working with physical therapy. plan for discharge today. Patient denies any chest pain, no shortness of breath, abdominal pain nausea or vomiting, no diarrhea constipation. No urinary symptoms. pain is well controlled at this time. patient receiving 2 units of PRBC per Ortho order, and will be discharged post transfusion Physical Exam Vital Signs: Vital Signs: Last Vital Signs Temp 97.3 F 01/07/23 07:54 Pulse 52 01/07/23 07:54 Resp 16 01/07/23 07:54 BP 134/63 01/07/23 07:54 Pulse Ox 96 01/07/23 07:54 O2 Del Method Room Air 01/07/23 07:54 BMI result Body Mass Index 30.0 Const: Other: Awake alert x3 Resp: Other: clear to auscultation bilaterally Cardio: Other: normal rate and rhythm Extrem: Other: dressing in place on the right hip Objective Data Active Medications Acetaminophen (Acetaminophen 325 Mg Tablet) 650 mg PO Q6H PRN PRN Reason: Pain, Mild (Pain Scale 1-3) Last Admin: 01/06/23 21:58 Dose: 650 mg Documented By: HOMERORALB Albuterol Sulfate (Albuterol Sulfate 90 Mcg 8 Gm Inhaler) 1 puff INHALE QID PRN PRN Reason: shortness of breath or wheezing Apixaban (Apixaban 5 Mg Tablet) 5 mg PO BID [facility] Last Admin: 01/07/23 07:05 Dose: 5 mg Documented By: ANGELA Atorvastatin Calcium (Atorvastatin Calcium 80 Mg Tablet) 80 mg PO DAILY [facility] Last Admin: 01/07/23 07:06 Dose: 80 mg Documented By: ANGELA Celecoxib (Celecoxib 200 Mg Capsule) 200 mg PO BID [facility] Last Admin: 01/07/23 07:06 Dose: 200 mg Documented By: ANGELA Docusate Sodium (Docusate Sodium 100 Mg Capsule) 100 mg PO BID [facility] Last Admin: 01/07/23 07:06 Dose: 100 mg Documented By: ANGELA Fluticasone Propionate (Fluticasone Propionate Nasal 16 Gm [place]) 1 spray NOSTRIL-B DAILY [facility] Last Admin: 01/07/23 07:07 Dose: Not Given Documented By: ANGELA Non-Admin Reason: Patient Refused Furosemide (Furosemide 40 Mg Tablet) 40 mg PO DAILY PRN; Protocol PRN Reason: edema Hydromorphone HCl (Hydromorphone Hcl 0.5 Mg/0.5 Ml Syringe) 0.25 mg IVPUSH Q4H PRN; Protocol PRN Reason: Pain, Severe (Pain Scale 7-10) Last Admin: 01/06/23 08:11 Dose: 0.25 mg Documented By: EVER Lactated Ringer's (Lr) 1,000 mls @ 100 mls/hr IVCONT .Q10H [facility] Last Admin: 01/07/23 09:49 Dose: 100 mls/hr Documented By: DUDLEY Loratadine (Loratadine 10 Mg Tablet) 10 mg PO DAILY [facility] Last Admin: 01/07/23 07:07 Dose: 10 mg Documented By: ANGELA Lorazepam (Lorazepam 0.5 Mg Tablet) 0.5 mg PO BID PRN PRN Reason: anxiety Last Admin: 01/06/23 21:57 Dose: 0.5 mg Documented By: RICHMOND Losartan Potassium (Losartan Potassium 25 Mg Tablet) 25 mg PO DAILY [facility]; Protocol Last Admin: 01/07/23 07:05 Dose: 25 mg Documented By: ANGELA Metoprolol Succinate (Metoprolol Succinate Er 50 Mg Tab.Er.24h) 50 mg PO DAILY [facility]; Protocol Last Admin: 01/07/23 07:05 Dose: 50 mg Documented By: ANGELA Ondansetron HCl (Ondansetron Hcl 4 Mg/2 Ml Vial) 4 mg IVPUSH Q8H PRN PRN Reason: Nausea and Vomiting Oxycodone HCl (Oxycodone Hcl Er 10 Mg Tab.Er.12h) 10 mg PO BID [facility] Last Admin: 01/07/23 07:05 Dose: 10 mg Documented By: ANGELA Oxycodone HCl (Oxycodone Hcl Immed Release 5 Mg Tablet) 5 mg PO Q4H PRN PRN Reason: Pain, Moderate(Pain Scale 4-6) Last Admin: 01/07/23 07:05 Dose: 5 mg Documented By: ANGELA Sertraline HCl (Sertraline Hcl 100 Mg Tablet) 200 mg PO DAILY [facility] Last Admin: 06/23/23 07:06 Dose: 200 mg Documented By: ANGELA Sodium Chloride (0.9 % Sodium Chloride Flush 3 Ml Syringe) 3 ml IVFLUSH QSHIFT [facility] Last Admin: 01/07/23 09:50 Dose: 3 ml Documented By: DUDLEY Labs 01/07/23 05:03 01/07/23 05:03 Labs: Laboratory Results - last 24 hr 01/06/23 01/07/23 01/07/23 09:09 05:03 05:03 MCV 91.1 MCH 29.3 MCHC 32.2 RDW 15.5 Plt Count 131 L MPV 9.9 Immature Gran % (Auto) 0.5 H Neut % (Auto) 73.6 H Lymph % (Auto) 14.0 L [place] % (Auto) 9.7 Eos % (Auto) 1.9 Baso % (Auto) 0.3 Lymph # (Auto) 0.8 L [place] # (Auto) 0.6 Eos # (Auto) 0.1 Baso # (Auto) 0.0 Abs Immat Gran (auto) 0.03 Absolute Neuts (auto) 4.3 Absolute Nucleated RBC 0.000 Nucleated RBC % (auto) 0.0 Anion Gap 11 L Estim Creat Clear Calc 34.4 Estimated GFR 36 Fasting Glucose 125 H Calcium 9.0 Blood Type O Positive Antibody Screen NEGATIVE Crossmatch See Detail Assessment and Plan (1) S/P total right hip arthroplasty: Status: Acute Assessment and Plan: 72-year-old male with history of paroxysmal atrial fibrillation anticoagulated with Eliquis last taken on 01/02, s/p pacemaker, bladder cancer currently on immunotherapy following with Dr. Whitaker, hyperlipidemia, hypertension, history of renal cancer s/p right nephroureterectomy 2021, CKD stage 3, and coronary artery disease admitted to Orthopedic surgery for management of osteoarthritis of the right hip s/p right BECCA with consult placed for Hospitalist service for medical management POD #2 s/p right BECCA for OA plan for discharge today, normocytic anemia secondary to acute blood loss from surgery pt asymptomatic. vitals stable being transfuse 2 units of PRBC today follow cbc outpatient Paroxysmal atrial fibrillation- rate controlled s/p pacer maker continue Eliquis and metoprolol HTN- reasonably controlled stable, resume home medications Bladder cancer outpt follow up CKD stage 3 renal function baseline CAD -continue statin, BB, ASA Mood continue sertraline, ativan Thank you for allowing us to participate in the care of this patient, (2) Anemia: Status: Acute Time Spent With Patient Time: Total time managing care of this patient today ____ minutes. Quality Stroke Does the patient have a stroke diagnosis?: No VTE Prior VTE?: Yes VTE Risk Level:: Medical - moderate - high VTE Device Contraindication: N/A - Device Ordered VTE Drug Contraindication: N/A - Med Ordered
--- NOTE | 2023-01-11 07:37 | P.OP_ITS ---
Operative Note Operative Note Date of Service: 01/05/23 Narrative: Date of Service: 01/05/23 Pre-op diagnosis: right hip OA Post-op diagnosis: same Procedure: Right BECCA Implants: Somerset Trident2 58 with 2 35 mm screws Somerset Accolade2 #5 127 deg with +4/MDM Surgeon: Leopoldo Torres MD Anesthesia: GETA and local Was an Mold Filler And Drainer used for this Procedure?: Yes Mold Filler And Drainer: Gracie Choi Estimated blood loss (mL): 175 IV fluids (mL): 1,000 Pathology: other Condition: stable Disposition: PACU Procedure in detail: Patient was brought into the operating room and placed in the right lateral decubitus position. All bony prominences were well padded and the limb was prepped and draped in standard sterile fashion. A time-out was called to identify proper site procedure proper surgeon IV antibiotics and 1 g of transaxemic acid were administered. I began by making a curvilinear incision over the posterolateral aspect of the greater trochanter. Dissection was taken down to the tensor fascia which was incised in line with the incision and a Charnley retractor was placed. Cautery was used to maintain hemostasis. The hip was internally rotated and the external rotators were identified. The vessels were cauterized and a full-thickness capsular/external rotator layer was de veloped starting just proximal to the piriformis. This layer was tagged and a dull Hohmann retractor was placed underneath the neck in the hip was dislocated. A neck cut was made 1 cm proximal to the lesser trochanter and the head and neck were removed and measured 50mm on the back table. I then removed the labrum and cauterized the fovea. I started with a 44 reamer and medialized to the inner ta ble. I sequentially reamed up to a size 54 and impacted a 58mm cup at 45 degrees of inclination and 25-30 degrees of version. I then placed a MDM liner and turned my attention to the femur. I identified the piriformis insertion and used this as a starting point for my rayo cutter. The medius tendon was protected with a Hibs retractor. A Charnley awl was inserted in the canal and a curved curette used to remove the lateral bone. I irrigated copiously. I then sequentially broached in the patient's natural version to a size 5 and placed my trial implants. I used a #5/127/+4 MDM based on my pre-operative template and the precence of fusion hardware in the lumbar spine.. Using a trail head I took the hip through range of motion. I was satisfied with the stability. I removed all instrumentation and copiously irrigated. I placed my final femoral implant and again took the hip through range of motion and was satisfied with the stability and length. The final +4 MDM implant was impacted in place and the hip reduced. I then irrigated for 3 minutes with iodine and placed 1 g of local transaxemic acid. I performed a capsular closure with 2.0 fiberwire, Parag's fascia with 0 Vicryl, subcuticular with 2-0 Vicryl and the skin with román. Patient was placed into a sterile dressing. Patient was extubated brought to the recovery room in stable condition. There were no known complications.
== END 2023-01-07 17:05 | disposition home health service (06) | DRG 470 ==
LOC: HO.SSSA 08:25 → HO.S3 14:34
PROVIDERS: Anesthesiology; Orthopaedic Surgery; Admitting Provider Physician Assistant; PCP Internal Medicine; Visit Provider Physician Assistant
PROC: 0SR90JA Replacement of Right Hip Joint with Synthetic Substitute, Uncemented, Open Approach (ICD-10-PCS; CPT 27130; principal; 2023-01-05 09:40)
DX: M16.11 Unilateral primary osteoarthritis, right hip (principal); D62 Acute posthemorrhagic anemia; F32.9 Major depressive disorder, single episode, unspecified; I10 Essential (primary) hypertension; Z90.5 Acquired absence of kidney; I48.0 Paroxysmal atrial fibrillation; C67.9 Malignant neoplasm of bladder, unspecified; E78.00 Pure hypercholesterolemia, unspecified; I25.10 Atherosclerotic heart disease of native coronary artery without angina pectoris; Z98.1 Arthrodesis status; Z87.891 Personal history of nicotine dependence; Z79.01 Long term (current) use of anticoagulants; Z79.51 Long term (current) use of inhaled steroids; Z79.82 Long term (current) use of aspirin; Z79.899 Other long term (current) drug therapy
CPT/HCPCS: 36415; 72170; 80048; 80051; 85014; 85018; 85025; 86850; 86900; 86901; 86923; 87640; 87641; 88304; 88311; 97110; 97116; 97161; 97165; 97535; C1776; J0131; J0690; J1100; J1170; J2405; J2795; J3010; P9016

== ENCOUNTER → 2023-01-10 14:00 | Outpatient (BNVA) | payer MEDICARE, SELFPAY | PROVIDERS: PCP Internal Medicine; Visit Provider Physician Assistant ==

== ENCOUNTER → 2023-01-20 13:26 | Outpatient (BNVA) | payer MEDICARE, SELFPAY | PROVIDERS: Visit Provider Physician Assistant ==

== ENCOUNTER 2023-02-17 14:24 | Outpatient (AMB) | payer MEDICARE, SELFPAY ==
--- NOTE | 2023-02-17 14:30 | MHC.OFFVIS ---
Intake Intake Visit Reasons: RT BECCA 01/05/23 NE Intake Note: Kash is a 72 year old female who presents today for a post operative right BECCA, 01/05/23. Patient reports he is doing well, he has no concerns today. Denies any pain. His last visit to PT will be next week. Allergies sulfamethoxazole [From Bactrim] Allergy (Intermediate, Verified 02/17/23 14:31) Hives trimethoprim [From Bactrim] Allergy (Intermediate, Verified 02/17/23 14:31) Hives HPI RT BECCA 01/05/23 NE HPI Details 72-year-old male who returns to the office today for post-op right BECCA, 01/05/[address] Torres. He states he has no pain and is doing well overall. He is working with physical therapy and has his last physical therapy session next week. He has no concerns today. [facility] Medical History Anemia Atrial fibrillation Bladder cancer CAD (coronary artery disease) Chronic kidney disease Elevated cholesterol HTN (hypertension) Major depression Osteoarthritis Osteoarthritis of right hip Renal cancer Surgical History H/O colonoscopy History of heart artery stent History of permanent cardiac pacemaker placement History of right nephrectomy History of surgery Hx of cystoscopy S/P lumbar spinal fusion Social History Household Members: Spouse Housing: House Are you a primary manager intensive care unit to a significant other at home: No Do you presently have visiting nurse or other home services: No Patient Tobacco Use Status: Former Tobacco user Quit Date: 2017 Tobacco use type: Cigarette Years Smoked: 40 Advance Directives Date on File: 12/29/22 Review of Systems Const All systems reviewed & are unremarkable except as noted in HPI and below Physical Exam Extrem Other: Right hip: Incision well healed. He has no erythema or swelling. No pain with ROM of hip or hip flexion. Calf supple, nontender. NVI. Assessment & Plan Assessment & Plan (1) S/P total right hip arthroplasty: Comment: 01/05/2023 NE Code(s): Z96.641 - Presence of right artificial hip joint Plan He will continue working with physical therapy and progress to home exercises program. He will increase activity as tolerated and see me back in 6 weeks with new x-rays, sooner if needed. Medications: Discontinued sertraline 100 mg PO BID 90 days 180 tabs 1RF Patient Instructions: Scribed for Bre Lobo PA-C, by Munir Colby medical imaging technician, on 02/17/2023 at 2:30 PM EST. I, Bre Lobo PA-C, have personally reviewed and agree with the information entered by the scribe. Coding Level of Care Code Global (05302) Diagnoses S/P total right hip arthroplasty Z96.641
== END 2023-02-17 15:03 | disposition home or self-care (01) ==
PROVIDERS: PCP Internal Medicine; Visit Provider Physician Assistant
DX: Z96.641 Presence of right artificial hip joint (principal)
CPT/HCPCS: 99024

== ENCOUNTER → 2023-02-17 14:24 | Outpatient (BNVA) | payer MEDICARE, SELFPAY | PROVIDERS: PCP Internal Medicine; Visit Provider Physician Assistant ==

== ENCOUNTER 2023-02-25 10:00 | Outpatient (RCR) | payer MEDICARE, SELFPAY ==
--- NOTE | 2023-01-20 14:46 | MHC.PT.EP ---
[facility] [place] Office [place] Office [place] Office [address] [phone] F: [phone] F: [phone] F: [phone] F: [phone] Physical Therapy Plan of Care Date of Evaluation: Date of Surgery: 01/05/23 Diagnosis: S/P Rt BECCA Assessment: 72 YO MALE REF TO PT S/P RIGHT BECCA ON 01/05/23. HE RESIDES W HIS IN A 2 LEVEL HOME AND IS CURRENTLY AMB W W/WALKER. OBJECTIVE FINDINGS: PO ROM DEFICITS RIGHT HIP, TIGHT HIP FLEXORS/ CALF MM, (+) STRENGTH DEFICITS, AND MILD RIGHT PROX LE PAIN. Pt IS VAGUELY AWARE OF POSTERIOR APPROACH RESTRICTIONS/ PRECAUTIONS AND BENEFITTED FROM FURTHER REVIEW. FUNCTIONALLY, Pt IS LIMITED WITH ALTERED GAIT MECHANICS, STAIR MGMT, AND RESTRICTED WITH MORE PHYSICALLY DEMANDING ADLs- HE IS MOTIVATED FOR PT AND REGAINING FUNCTIONAL INDEPENDENCE. Pt WOULD BENEFIT FROM PT AT THIS TIME TO GUIDE HIM IN HIS POST-OP COURSE, DEV A PROGR HEP, ADDRESS PAIN MGMT, AND OBTAINING MAXIMAL LEVEL OF FUNCTIONAL INDEPENDENCE. Frequency and Duration: The patient will be seen 2 x WK x 8 WKS Short Term Goals: *Pt INDEP W BECCA POSTERIOR APPROACH PRECAUTIONS AND SELF-MGMT OF POST-OP STATUS TO PROMOTE OPTIMAL HEALING *Pt WILL DEMON EFFICIENT GAIT MECHANICS W LEAST RESTRICTIVE ASST DEVICE ON LEVEL GROUND AND STAIRS *Pt'S RIGHT HIP PAIN WILL DECR TO 2-3/10 *Pt DEMON APPROP BED MOB/ POSITIONING/ SIT <-> STAND/ CAR TRANSFERS Penitentiary Goals: *Pt WILL IMPROVE LUMBOPELVIC/ Lt LE STRENGTH TO AT LEAST 5-/5 *Pt RESUME AT LEAST PLOF EVIDENT W IMPROVED LEFI SCORE (AT EVAL 34/80 ) *Pt INDEP W PROGR HEP AND SELF-SX MGMT TECHN Treatment Plan: Modalities to reduce pain, spasms and effusion. Manual therapy to restore motion and function. Therapeutic exercise to improve strength and flexibility. Neuromuscular re-education for posture and balance. Therapeutic activities to return to functional activities of daily living. Electronically signed by: RAE HEMPHILL,PT Please sign and return to therapist. Thank you for your referral.
--- NOTE | 2023-02-25 10:54 | MHC.PT.DC ---
[facility] [place] Office [place] Office [place] Office [address] [phone] F: [phone] F: [phone] F: [phone] F: [phone] Physical Therapy Discharge Report Diagnosis: S/P Rt BECCA Date of Surgery: 01/05/23 Date of Evaluation: 01/20/23 Date of Discharge: 02/25/23 Treatments to Date: 10 Cancellations to Date: 2 No Shows to Date: 0 Discharge Status: Achieved Goals Improved Function Independent with HEP Discharge Summary: 02/25/2023: He has made good progress up to this point. He is compliant with his HEP at home. We tried the treadmill today and he did well with this, mildly unstable. Educated him on safety clip and making sure someone is near by when doing this at home. Educated him that walking outside is good as well. At this point we have maximized benefits of PT and skilled PT is no longer indicated. He will benefit from continuing HEP for further strength gains. He is in agreement with d/c today. Electronically signed by: Amalia Fajardo, PT, DPT, ATC Please sign and return to therapist. Thank you for your referral.
== END 2023-02-25 10:55 | disposition home or self-care (01) ==
LOC: HO.PTCHIC 10:00
PROVIDERS: PCP Internal Medicine; Visit Provider Physician Assistant
DX: Z96.641 Presence of right artificial hip joint (principal)
CPT/HCPCS: 97110; 97162; 97530

== ENCOUNTER 2023-03-16 14:09 | Outpatient (AMB) | payer MEDICARE, SELFPAY ==
--- NOTE | 2023-03-16 14:21 | MHC.OFFVISPS ---
Intake Intake Visit Reasons: Depression Allergies sulfamethoxazole [From Bactrim] Allergy (Intermediate, Verified 02/17/23 14:31) Hives trimethoprim [From Bactrim] Allergy (Intermediate, Verified 02/17/23 14:31) Hives Medication List - Last Reconciled 03/16/23 by Qamar Pruitt MD acetaminophen 650 mg (2 x 325 mg) PO Q6H PRN 30 days albuterol sulfate 90 mcg/actuation (Ventolin HFA) 1 inh inhalation QID PRN apixaban (Eliquis) 5 mg PO BID aspirin 81 mg PO DAILY atorvastatin 80 mg PO DAILY celecoxib 200 mg PO BID 30 days cetirizine 10 mg PO DAILY docusate sodium 100 mg PO BID 30 days fluticasone propionate 50 mcg/actuation 50 mcg intranasal DAILY furosemide 40 mg PO DAILY PRN lorazepam 0.5 mg (1/2 x 1 mg) PO BID PRN losartan 25 mg PO QAM metoprolol succinate ER 50 mg PO QAM miscellaneous medical supply As directed oxycodone 5 mg PO Q4H PRN 7 days sertraline 200 mg PO QAM walker Folding Front wheeled walker HPI- Psychiatric Chief Complaint: Depression HPI Narrative: Pt seen in f/u feeling better physically since hip replacement. Managing issues related to chronic treatment for bladder cancer had also developed renal cancer and status post surgery. 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 We have encouraged daily walking he is social with his and engaged states they get along quite well status post hip surgery with refurbish technician went well managing chronic immunotherapy for bladder cancer history of paroxysmal atrial fibrillation has apparently been in check not overly depressed future oriented able to enjoys things takes things as they come tries to maintain a good attitude. Sleep and appetite okay Past Psychiatric History: hx of depression panic past hx alcohol use has been stable x years 1 prior adm Mental Status Exam Mental Status Exam Narrative: Mental Status Exam Narrative: Appearance: Casually dressed Behavior: Cooperative appropriate psychomotor: Within normal limits Speech: Normal volume and prosody Thought proccess logical and goal-directed Thought content: Future oriented some appropriate anxiety regarding his medical health Mood: Euthymic Affect: Appropriate to mood full affect SI:denies HI:denies VH/AH:none Delusions: None Insight/judgment: Good insight and judgment Memory/cog: Intact Assessment and Plan Assessment & Plan (1) Major depression in full remission: Status: Acute Code(s): F32.5 - Major depressive disorder, single episode, in full remission (2) Bladder cancer: Status: Acute Code(s): C67.9 - Malignant neoplasm of bladder, unspecified (3) Renal cancer: Status: Acute Code(s): C64.9 - Malignant neoplasm of unspecified kidney, except renal pelvis (4) Right lumbar radiculopathy: Status: Acute Code(s): M54.16 - Radiculopathy, lumbar region (5) Neuropathy of right lower extremity: Status: Acute Code(s): G57.91 - Unspecified mononeuropathy of right lower limb Plan Continue sertraline 200 mg encourage daily walk light exposure maintain good sleep cycle good relationship with and family for emotional health no evidence of relapse symptoms no complaints of side effects continue plan of care Medications: Changed From sertraline 200 mg PO QAM To sertraline 200 mg (2 x 100 mg) PO QAM 180 tabs 1RF 3 months Counseling and coordination of Care Pt. Self Management counseling: Breathing and Maintenance-social rhythm Details-Self Mgmt counseling: Issues regarding maintaining positivity in the face of chronic medical issues Medication management counseling: Effectiveness Diagnosis and Prognosis Counseling: Adequacy of current interventions Details: I spent [35] minutes reviewing the record, seeing the patient and documenting in the medical record. Counseling provided to the patient/caregiver as outlined below. Addressed patient/caregiver concerns regarding current medication regime including effective adherence. Addressed patient/caregiver concerns regarding diagnosis and prognosis including accuracy of diagnosis, prognosis over time, impact of diagnosis. Addressed patient/caregiver concerns regarding impact of recent stressors. [facility] Medical History Anemia Atrial fibrillation Bladder cancer CAD (coronary artery disease) Chronic kidney disease Elevated cholesterol HTN (hypertension) Major depression Osteoarthritis Osteoarthritis of right hip Renal cancer Surgical History H/O colonoscopy History of heart artery stent History of permanent cardiac pacemaker placement History of right nephrectomy History of surgery Hx of cystoscopy S/P lumbar spinal fusion Social History Household Members: Spouse Housing: House Are you a primary care coordinator to a significant other at home: No Do you presently have visiting nurse or other home services: No Patient Tobacco Use Status: Former Tobacco user Quit Date: 2017 Tobacco use type: Cigarette Years Smoked: 40 Advance Directives Date on File: 12/29/22 Social History: fam hx cancer mther anxiety depression 1 brother 2 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
== END 2023-03-16 15:22 | disposition home or self-care (01) ==
LOC: HO.HOP 14:09
PROVIDERS: PCP Internal Medicine; Visit Provider Psychiatry & Neurology Psychiatry
DX: F32.5 Major depressive disorder, single episode, in full remission (principal); C67.9 Malignant neoplasm of bladder, unspecified; C64.9 Malignant neoplasm of unspecified kidney, except renal pelvis; M54.16 Radiculopathy, lumbar region; G57.91 Unspecified mononeuropathy of right lower limb
CPT/HCPCS: 99214

== ENCOUNTER → 2023-03-16 14:09 | Outpatient (BNVA) | payer MEDICARE, SELFPAY | PROVIDERS: PCP Internal Medicine; Visit Provider Psychiatry & Neurology Psychiatry | DX: F32.5 Major depressive disorder, single episode, in full remission (principal); C67.9 Malignant neoplasm of bladder, unspecified; C64.9 Malignant neoplasm of unspecified kidney, except renal pelvis; M54.16 Radiculopathy, lumbar region | CPT/HCPCS: 99212 ==

== ENCOUNTER 2023-03-31 09:16 | Outpatient (REF) | payer MEDICARE, SELFPAY ==
--- NOTE | ~2023-03-31 | XR_ITS ---
EXAMINATION: XR PELVIS CLINICAL INFORMATION: Pain. COMPARISON: Prior radiographs, most recently 01/05/2023. TECHNIQUE: AP view of the pelvis. FINDINGS: There is bony demineralization. Prosthetic components of the right total hip arthroplasty are appropriately aligned. No periprosthetic fracture. No unusual degenerative change is seen of the left hip. The left femoral head appears smooth. No fracture or dislocation is seen. There are bilateral iliofemoral atherosclerotic calcifications. There is incompletely covered lumbar orthopedic hardware. XR/XR pelvis 1-2V IMPRESSION: 1. There is an intact right hip total arthroplasty, without hardware failure or loosening seen. No periprosthetic fracture is noted. 2. No unusual degenerative change is seen of the left hip.
== END 2023-03-31 09:17 | disposition home or self-care (01) ==
LOC: HO.HOSX 09:16
PROVIDERS: Visit Provider Orthopaedic Surgery
DX: Z47.1 Aftercare following joint replacement surgery (principal); Z96.641 Presence of right artificial hip joint
CPT/HCPCS: 72170

== ENCOUNTER 2023-03-31 10:07 | Outpatient (AMB) | payer MEDICARE, SELFPAY ==
--- NOTE | 2023-03-31 10:17 | A.OFFVIS_ITS ---
Intake Intake Visit Reasons: ov- RT BECCA 01/05/23 NE-book with NE w xrays Intake Note: Kash is a 72 year old male who presents today for a post operative appointment s/p Right BECCA, 01/05/23. Patient reports that he is doing well , however he is having an increase in pain in the left hip, he feels this as a sharp pain in the bottom of the glute. The pain is also felt in the left knee which occasionally swells. Allergies sulfamethoxazole [From Bactrim] Allergy (Intermediate, Verified 02/17/23 14:31) Hives trimethoprim [From Bactrim] Allergy (Intermediate, Verified 02/17/23 14:31) Hives HPI ov- RT BECCA 01/05/23 NE-book with NE w xrays HPI Details ~3 months post op doing well. Occasional gluteal pain but no groin pain PFSH Medical History Anemia Atrial fibrillation Bladder cancer CAD (coronary artery disease) Chronic kidney disease Elevated cholesterol HTN (hypertension) Major depression Osteoarthritis Osteoarthritis of right hip Renal cancer Surgical History H/O colonoscopy History of heart artery stent History of permanent cardiac pacemaker placement History of right nephrectomy History of surgery Hx of cystoscopy S/P lumbar spinal fusion Social History Household Members: Spouse Housing: House Are you a primary hearing healthcare practitioner to a significant other at home: No Do you presently have visiting nurse or other home services: No Patient Tobacco Use Status: Former Tobacco user Quit Date: 2017 Tobacco use type: Cigarette Years Smoked: 40 Advance Directives Date on File: 12/29/22 Physical Exam Extrem Other: inc c/d/i Nl gait No groin pain with ROM. Mild TTP over ischial tuberosity left Results Reviewed Results Reviewed: I personally reviewed relevant radiographs. Right BECCA in expected post operative position with no hardware complications or evidence of loosening Assessment & Plan Assessment & Plan (1) S/P total right hip arthroplasty: Comment: 01/05/2023 NE Code(s): Z96.641 - Presence of right artificial hip joint Plan: right hip seems to be doing well posterior gluteal/ischium pain likely not directly related. IF worsens may consider referral to pain. Hx of failed back surgery. Orders: Orders XR pelvis 1-2V 03/31/23 M25.559 - Pain in unspecified hip Coding Level of Care Code Global (62057) Diagnoses S/P total right hip arthroplasty Z96.641
== END 2023-03-31 11:47 | disposition home or self-care (01) ==
PROVIDERS: PCP Internal Medicine; Visit Provider Orthopaedic Surgery
DX: Z96.641 Presence of right artificial hip joint (principal)
CPT/HCPCS: 99024

== ENCOUNTER 2023-10-20 11:43 | Outpatient (AMB) | payer MEDICARE, SELFPAY ==
--- NOTE | 2023-10-20 12:20 | MHC.OFFVISPS ---
Intake Vital Signs 10/23/23 20:38 BP 124/78 Pulse 78 Intake Visit Reasons: depression Allergies sulfamethoxazole [From Bactrim] Allergy (Intermediate, Verified 02/17/23 14:31) Hives trimethoprim [From Bactrim] Allergy (Intermediate, Verified 02/17/23 14:31) Hives Medication List - Last Reconciled 10/20/23 by Qamar Pruitt MD acetaminophen 650 mg (2 x 325 mg) PO Q6H PRN 30 days albuterol sulfate 90 mcg/actuation (Ventolin HFA) 1 inh inhalation QID PRN amoxicillin 2,000 mg (4 x 500 mg) PO ONCE 1 day apixaban (Eliquis) 5 mg PO BID atorvastatin 80 mg PO DAILY celecoxib 200 mg PO BID 30 days cetirizine 10 mg PO DAILY docusate sodium 100 mg PO BID 30 days fluticasone propionate 50 mcg/actuation 50 mcg intranasal DAILY furosemide 40 mg PO DAILY PRN lorazepam 0.5 mg (1/2 x 1 mg) PO BID PRN losartan 25 mg PO QAM metoprolol succinate ER 100 mg PO QAM miscellaneous medical supply As directed oxycodone 5 mg PO Q4H PRN 7 days sertraline 200 mg (2 x 100 mg) PO QAM 3 months walker Folding Front wheeled walker HPI- Psychiatric Chief Complaint: depression HPI Narrative: Patient seen psychiatric follow-up. The patient's mood has generally been okay his somewhat a motivational at times not walking walking as much as he should. Patient is mood is generally stable despite significant medical difficulties. He has a pacemaker implanted defibrillator has been negative for recurrence of cancer status post hip replacement. Patient continues on sertraline lorazepam once a day p.r.n. no significant panic attack future oriented Past Psychiatric History: hx of depression panic past hx alcohol use has been stable x years 1 prior adm Mental Status Exam Mental Status Exam Narrative: Mental Status Exam Narrative: Appearance: Casually dressed Behavior: Cooperative appropriate psychomotor: Mild balance problems Speech: Normal volume and prosody Thought proccess logical and goal-directed Thought content: Future oriented some appropriate anxiety regarding his medical health Mood: Euthymic Affect: Appropriate to mood full affect SI:denies HI:denies VH/AH:none Delusions: None Insight/judgment: Good insight and judgment Memory/cog: Intact Assessment and Plan Assessment & Plan (1) Major depression in full remission: Status: Acute Code(s): F32.5 - Major depressive disorder, single episode, in full remission (2) S/P total right hip arthroplasty: Status: Acute Code(s): Z96.641 - Presence of right artificial hip joint (3) Failed back syndrome of lumbar spine: Status: Acute Code(s): M96.1 - Postlaminectomy syndrome, not elsewhere classified (4) Bladder cancer: Status: Acute Code(s): C67.9 - Malignant neoplasm of bladder, unspecified (5) Renal cancer: Status: Acute Code(s): C64.9 - Malignant neoplasm of unspecified kidney, except renal pelvis Plan Discussed trying to lower sertraline in case was causing any balance issues discussed possibility physical therapy to help with strengthening discussed trying to taper down on lorazepam encourage no more than 0.5 mg encouraged daily walking Medications: Changed From sertraline 200 mg (2 x 100 mg) PO QAM 3 months 180 tabs 1RF To sertraline 150 mg (1.5 x 100 mg) PO QAM 3 months 135 tabs 1RF Refilled sertraline 150 mg (1.5 x 100 mg) PO QAM 135 tabs 1RF 3 months lorazepam 0.5 mg (1/2 x 1 mg) PO BID PRN 60 tabs 3RF anxiety Counseling and coordination of Care Pt. Self Management counseling: Behavior activation and Cognitive restructuring Details-Self Mgmt counseling: Issues related to attitude and strategies to manage mentally dealing with multiple medical issues without feeling overwhelmed. Patient will be attending his son's wedding in [place] Medication management counseling: Effectiveness and Side effects Diagnosis and Prognosis Counseling: Adequacy of current interventions Details: I spent [38] minutes reviewing the record, seeing the patient and documenting in the medical record. Counseling provided to the patient/caregiver as outlined below. Addressed patient/caregiver concerns regarding current medication regime including effective adherence. Addressed patient/caregiver concerns regarding diagnosis and prognosis including accuracy of diagnosis, prognosis over time, impact of diagnosis. Addressed patient/caregiver concerns regarding impact of recent stressors. [facility] Medical History Anemia Atrial fibrillation Bladder cancer CAD (coronary artery disease) Chronic kidney disease Elevated cholesterol HTN (hypertension) Major depression Osteoarthritis Osteoarthritis of right hip Renal cancer Surgical History H/O colonoscopy History of heart artery stent History of permanent cardiac pacemaker placement History of right nephrectomy History of surgery Hx of cystoscopy S/P lumbar spinal fusion Social History Household Members: Spouse Housing: House Are you a primary manager critical care to a significant other at home: No Do you presently have visiting nurse or other home services: No Patient Tobacco Use Status: Former Tobacco user Quit Date: 2017 Tobacco use type: Cigarette Years Smoked: 40 Advance Directives Date on File: 12/29/22 Social History: fam hx cancer mther anxiety depression 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
[2023-10-23 20:38] VITALS: BP 124/78; PULSE 78
== END 2023-10-20 12:37 | disposition home or self-care (01) ==
LOC: HO.HOP 11:43
PROVIDERS: PCP Internal Medicine; Visit Provider Psychiatry & Neurology Psychiatry
DX: F32.5 Major depressive disorder, single episode, in full remission (principal); Z96.641 Presence of right artificial hip joint; M96.1 Postlaminectomy syndrome, not elsewhere classified; C67.9 Malignant neoplasm of bladder, unspecified; C64.9 Malignant neoplasm of unspecified kidney, except renal pelvis
CPT/HCPCS: 90833; 99213

== ENCOUNTER → 2023-10-20 11:43 | Outpatient (BNVA) | payer MEDICARE, SELFPAY | PROVIDERS: PCP Internal Medicine; Visit Provider Psychiatry & Neurology Psychiatry | DX: F32.5 Major depressive disorder, single episode, in full remission (principal); M96.1 Postlaminectomy syndrome, not elsewhere classified; C67.9 Malignant neoplasm of bladder, unspecified; C64.9 Malignant neoplasm of unspecified kidney, except renal pelvis; Z96.641 Presence of right artificial hip joint | CPT/HCPCS: 99212 ==

== ENCOUNTER 2024-02-21 11:28 | Outpatient (AMB) | payer MEDICARE, SELFPAY ==
--- NOTE | 2024-02-21 11:42 | A.OFFPSYCH_ITS ---
Intake Intake Visit Reasons: depression Allergies sulfamethoxazole [From Bactrim] Allergy (Intermediate, Verified 02/17/23 14:31) Hives trimethoprim [From Bactrim] Allergy (Intermediate, Verified 02/17/23 14:31) Hives HPI- Psychiatric Chief Complaint: depression HPI Narrative: Pt seen in psych f/u mood stable no new medical concerns ,things are feeling more stable medically. Patient feels stable able to enjoy things Feels sertraline helpful continues to be not overly depressed no panic attacks Past Psychiatric History: hx of depression panic past hx alcohol use has been stable x years 1 prior adm Mental Status Exam Mental Status Exam Narrative: Mental Status Exam Narrative: Appearance: Casually dressed Behavior: Cooperative appropriate psychomotor: Mild balance problems Speech: Normal volume and prosody Thought proccess logical and goal-directed Thought content: Future oriented feeling good about his and supported by his family Mood: Euthymic Affect: Appropriate to mood full affect SI:denies HI:denies VH/AH:none Delusions: None Insight/judgment: Good insight and judgment Memory/cog: Intact Assessment and Plan Assessment & Plan (1) Major depression in full remission: Status: Acute Code(s): F32.5 - Major depressive disorder, single episode, in full remission Plan Patient has dealt with multiple chronic medical problems including stent hip replacement bladder cancer has most recently been feeling much better since hip replacement no significant pain mood stable no evidence of misuse of lorazepam no complaints of side effects with antidepressant continue plan of care Medications: Refilled lorazepam 0.5 mg (1/2 x 1 mg) PO BID PRN 60 tabs 3RF anxiety Counseling and coordination of Care Details-Self Mgmt counseling: Encourage daily exercise sleep appetite ability to enjoy things intact Medication management counseling: Effectiveness, Side effects and Dosing range Diagnosis and Prognosis Counseling: Adequacy of current interventions Details: I spent [30] minutes reviewing the record, seeing the patient and documenting in the medical record. Counseling provided to the patient/caregiver as outlined below. Addressed patient/caregiver concerns regarding current medication regime including effective adherence. Addressed patient/caregiver concerns regarding diagnosis and prognosis including accuracy of diagnosis, prognosis over time, impact of diagnosis. Addressed patient/caregiver concerns regarding impact of recent stressors. [facility] Medical History Anemia Atrial fibrillation Bladder cancer CAD (coronary artery disease) Chronic kidney disease Elevated cholesterol HTN (hypertension) Major depression Osteoarthritis Osteoarthritis of right hip Renal cancer Surgical History H/O colonoscopy History of heart artery stent History of permanent cardiac pacemaker placement History of right nephrectomy History of surgery Hx of cystoscopy S/P lumbar spinal fusion Social History Household Members: Spouse Housing: House Are you a primary floor care technician to a significant other at home: No Do you presently have visiting nurse or other home services: No Patient Tobacco Use Status: Former Tobacco user Tobacco use type: Cigarette Years Smoked: 40 Advance Directives Date on File: 12/29/22 Social History: fam hx cancer mther anxiety depression 1 brother 2 children used work manufacturing Substance History: past alcohol Trauma History: none Coding Level of Care Code Est Pt Level 4 (42813) Diagnoses Major depression in full remission F32.5
== END 2024-02-21 12:10 | disposition home or self-care (01) ==
LOC: HO.HOP 11:28
PROVIDERS: PCP Internal Medicine; Visit Provider Psychiatry & Neurology Psychiatry
DX: F32.5 Major depressive disorder, single episode, in full remission (principal)
CPT/HCPCS: 99214

== ENCOUNTER → 2024-02-21 11:28 | Outpatient (BNVA) | payer MEDICARE, SELFPAY | PROVIDERS: PCP Internal Medicine; Visit Provider Psychiatry & Neurology Psychiatry | DX: F32.5 Major depressive disorder, single episode, in full remission (principal) | CPT/HCPCS: 99212 ==

== ENCOUNTER 2024-03-30 09:36 | Outpatient (AMB) | payer MEDICARE, SELFPAY ==
--- NOTE | 2024-03-30 09:43 | MHC.OFFVIS ---
Vital Signs 03/30/24 09:49 Height 5 ft 4 in Weight 160 lb BMI 27.5 Intake Visit Reasons: ov- RT BECCA 01/05/23 NE-follow up Intake Note: Kash is a 73 year old male who presents today for a follow up appointment of his right hip s/p Right BECCA 01/05/23. Patient reports that he is doing well with no concerns. Allergies sulfamethoxazole [From Bactrim] Allergy (Intermediate, Verified 03/30/24 09:49) Hives trimethoprim [From Bactrim] Allergy (Intermediate, Verified 03/30/24 09:49) Hives HPI HPI ov- RT BECCA 01/05/23 NE-follow up: Details: Kash is a 73 year old male who presents today for a follow up appointment of his right hip s/p Right BECCA 01/05/23. Patient reports that he is doing well with no concerns. [facility] Medical History Anemia Atrial fibrillation Bladder cancer CAD (coronary artery disease) Chronic kidney disease Elevated cholesterol HTN (hypertension) Major depression Osteoarthritis Osteoarthritis of right hip Renal cancer Surgical History H/O colonoscopy History of heart artery stent History of permanent cardiac pacemaker placement History of right nephrectomy History of surgery Hx of cystoscopy S/P lumbar spinal fusion Social History Household Members: Spouse Housing: House Are you a primary day care attendant to a significant other at home: No Do you presently have visiting nurse or other home services: No Patient Tobacco Use Status: Former Tobacco user Tobacco use type: Cigarette Years Smoked: 40 Advance Directives Date on File: 12/29/22 Physical Exam Vital Signs: BMI result Body Mass Index 27.5 Extrem Other: inc c/d/i Nl gait No groin pain with ROM. Mild TTP over ischial tuberosity left Assessment & Plan Assessment & Plan (1) S/P total right hip arthroplasty: Comment: 01/05/2023 NE Code(s): Z96.641 - Presence of right artificial hip joint Category: Surgical Plan: 73-year-old gentleman status post right hip replacement doing well. He has no complaints other than occasional pain over the greater trochanter. I discussed his daily activities with him and he seemed satisfied. He can follow up on a p.r.n. basis. Coding Level of Care Code Est Pt Level 3 (74888) Diagnoses S/P total right hip arthroplasty Z96.641
[2024-03-30 09:49] VITALS: BMI 27.5
== END 2024-03-30 10:08 | disposition home or self-care (01) ==
PROVIDERS: PCP Internal Medicine; Visit Provider Orthopaedic Surgery
DX: Z47.89 Encounter for other orthopedic aftercare (principal); Z96.641 Presence of right artificial hip joint
CPT/HCPCS: 99212

== ENCOUNTER → 2024-03-30 09:36 | Outpatient (BNVA) | payer MEDICARE, SELFPAY | PROVIDERS: PCP Internal Medicine; Visit Provider Orthopaedic Surgery | DX: Z96.641 Presence of right artificial hip joint (principal) | CPT/HCPCS: 99212 ==

== ENCOUNTER 2024-09-17 15:19 | Outpatient (AMB) | payer MEDICARE, SELFPAY ==
--- NOTE | 2024-09-17 16:15 | A.OFFPSYCH_ITS ---
Intake Intake Visit Reasons: depression Allergies sulfamethoxazole [From Bactrim] Allergy (Intermediate, Verified 03/30/24 09:49) Hives trimethoprim [From Bactrim] Allergy (Intermediate, Verified 03/30/24 09:49) Hives Medication List - Last Reconciled 09/17/24 by Qamar Pruitt MD acetaminophen 650 mg (2 x 325 mg) PO Q6H PRN 30 days albuterol sulfate 90 mcg/actuation (Ventolin HFA) 1 inh inhalation QID PRN amoxicillin 2,000 mg (4 x 500 mg) PO ONCE 1 day apixaban (Eliquis) 5 mg PO BID atorvastatin 80 mg PO DAILY celecoxib 200 mg PO BID 30 days cetirizine 10 mg PO DAILY docusate sodium 100 mg PO BID 30 days fluticasone propionate 50 mcg/actuation 50 mcg intranasal DAILY furosemide 40 mg PO DAILY PRN lorazepam 0.5 mg (1/2 x 1 mg) PO BID PRN losartan 25 mg PO QAM metoprolol succinate ER 100 mg PO QAM miscellaneous medical supply As directed oxycodone 5 mg PO Q4H PRN 7 days sertraline 150 mg (1.5 x 100 mg) PO QAM 3 months walker Folding Front wheeled walker HPI- Psychiatric Chief Complaint: depression HPI Narrative: Patient has a history of recurrent depression and anxiety. He is had multiple medical issues but has managed to remain stable decide bladder cancer kidney cancer back surgery and a stent. Patient feels supported by his seems to have a positive attitude no significant panic. Continue sertraline p.r.n. lorazepam no evidence of abuse or tolerance. Past Psychiatric History: hx of depression panic past hx alcohol use has been stable x years 1 prior adm Mental Status Exam Mental Status Exam Narrative: Mental Status Exam Narrative: Appearance: Casually dressed Behavior: Cooperative appropriate psychomotor: Mild balance problems Speech: Normal volume and prosody Thought proccess logical and goal-directed Thought content: Future oriented feeling good about his and supported by his family Mood: Euthymic Affect: Appropriate to mood full affect SI:denies HI:denies VH/AH:none Delusions: None Insight/judgment: Good insight and judgment Memory/cog: Intact Assessment and Plan Assessment & Plan (1) Major depression in full remission: Status: Acute Code(s): F32.5 - Major depressive disorder, single episode, in full remission Plan Continue plan of care no change indicated no evidence of abuse or tolerance Medications: Refilled sertraline 150 mg (1.5 x 100 mg) PO QAM 135 tabs 1RF 3 months lorazepam 0.5 mg (1/2 x 1 mg) PO BID PRN 60 tabs 3RF anxiety Counseling and coordination of Care Details: I spent [] minutes reviewing the record, seeing the patient and documenting in the medical record. Counseling provided to the patient/caregiver as outlined below. Addressed patient/caregiver concerns regarding current medication regime including effective adherence. Addressed patient/caregiver concerns regarding diagnosis and prognosis including accuracy of diagnosis, prognosis over time, impact of diagnosis. Addressed patient/caregiver concerns regarding impact of recent stressors. FORMERLY [facility] Medical History Anemia Atrial fibrillation Bladder cancer CAD (coronary artery disease) Chronic kidney disease Elevated cholesterol HTN (hypertension) Major depression Osteoarthritis Osteoarthritis of right hip Renal cancer Surgical History H/O colonoscopy History of heart artery stent History of permanent cardiac pacemaker placement History of right nephrectomy History of surgery Hx of cystoscopy S/P lumbar spinal fusion Social History Household Members: Spouse Housing: House Are you a primary career development associate to a significant other at home: No Do you presently have visiting nurse or other home services: No Patient Tobacco Use Status: Former Tobacco user Tobacco use type: Cigarette Years Smoked: 40 Advance Directives Date on File: 12/29/22 Social History: fam hx cancer mther anxiety depression 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
--- OUTSIDE RECORDS SUMMARY | 2024-09-17 18:12 | XMS_ITS | Encounter Summary ---
Author Organization [facility] Address [address] [place] [address] Care Team Providers Care Netbackup Engineer Name Role Phone Josette Fajardo MD Primary Care Provider [phone] Reason for Visit * Reason Onset Date Comments VNA Order 08/10/2024 [facility] (or alejandra# [id number]) Encounter Details Date Type Department Care Team (Late st Contact Info) Description 08/10/2024 Telephone Adult Medicine [facility] [address] [place] [address] Josette Fajardo MD [address] [place] [address] VNA Order ([facility] (order# [id number])) Social History Tobacco Use Types Packs/Day Years Used Date Smoking Tobacco: Former Cigarettes Q uit: 10/28/2016 Alcohol Use Standard Drinks/Week Comments No 0 (1 standard drink = 0.6 oz pur e alcohol) Housing Instability Answer Date Recorde d Are you worried that in the next 2 months you may not have stable housing? No 08/19/2024 Food Access & Nutrition Answer Date Rec orded Do you have access to a vari ety of food including fruits and vegetables? Yes 08/19/2024 Access to Healthcare Answer Date Record ed Within the last 3 months, ho w many times did you visit the emergency department for your medical care? 2 08/19/2024 Health Literacy Answer Date Recorded How often do you need to hav e someone help you when you read instructions, pamphlets, or other written material from your doctor or pharmacy? Rarely 08/19/2024 Caregiver: How often do you need to have someone help you when you read instructions, pamphlets, or other written material from your doctor or pharmacy? Not on file 08/19/2024 Financial Risk Answer Date Recorded How hard is it for you to pa y for the very basics like food, housing, medical care, and air conditioning / heating? Not very hard 08/19/2024 Transportation Answer Date Recorded Has the lack of transportati on kept you from meetings, work, or from getting things needed for daily living? No Has the lack of transportati on kept you from medical appointments or from getting medications? No 08/19/2024 Social Isolation Answer Date Recorded How often do you feel lonely or isolated from th ose around you? Never 08/19/2024 Food Risk Answer Date Recorded Within the past 12 months we worried whether our food would run out before we got money to buy more. Never true 08/19/2024 Within the past 12 months th e food we bought just didn't last and we didn't have money to get more. Never true 08/19/2024 Dependent Care Answer Date Recorded Do you need help finding or paying for care for your loved ones. For example, child day care provider or elderly care for an older adult? No 08/19/2024 Education Answer Date Recorded Do you think completing more education or training, like finishing a GED, going to college, or learning a trade, would be helpful for you? N/A 08/19/2024 Employment and Income Answer Date Recor ded During the last four weeks, have you been actively looking for work? No 08/19/2024 Living Situation Answer Date Recorded What is your living situation? 0 08/19/2024 Interpersonal Safety Answer Date Record ed Physical Abuse 07/30/2024 Verbal Abuse 07/30/2024 Sex and Gender Information Value Date Recorded Sex Assigned at Not on file Legal Sex Male 4:06 AM EST Gender Identity Not on file Sexual Orientation Not on file documented as of this encounter Functional Status * Are you deaf or do you have serious difficulty hearing? Answer Date of Assessment Author No 07/24/2024 6:53 PM Karen Dodd RN * Are you blind or do you have serious difficulty seeing, even when wearing glasses? Answer Date of Assessment Author No 07/24/2024 6:53 PM Karen Dodd RN * Do you have serious difficulty walking or climbing stairs? Answer Date of Assessment Author No 07/24/2024 6:53 PM Karen Dodd RN * Do you have serious difficulty dressing or bathing? Answer Date of Assessment Author No 07/24/2024 6:53 PM Karen Dodd RN * Because of a physical, mental, or emotional condition, do you have serious difficulty doing errandsalone such as visiting the doctor? Answer Date of Assessment Author No 07/24/2024 6:53 PM Karen Dodd RN documented as of this encounter Mental Status * Because of a physical, mental, or emotional condition, do you have serious difficulty concentrating, remembering, or making decisions? (5 years old or older) Answer Entry Date Author No 07/24/2024 6:53 PM Karen Dodd RN documented in this encounter Progress Notes * Britney Garcia - 08/10/2024 4:27 PM EST Received fax from [employer] for Order # [id number] and placed in provider bin. Please review, sign, and fax to [phone]. documented in this encounter Plan of Treatment Upcoming Encounters Date Type Department Care Team (Late st Contact Info) Description 09/18/2024 11:00 AM EST Appointment [facility] PET Scan [address] [place] [phone] 09/27/2024 3:30 PM EDT Appointment [facility] Endoscopy [address] [place] [address] Delgado Hicks MD [address] [address] 10/10/2024 10:45 AM EDT Office Visit [facility] Hematology Oncology [address] [place] [phone] Luis Barrear MD [address] [place] [phone] 10/16/2024 12:40 PM EDT Office Visit [facility] Cardiology [facility] [address] [phone] Larissa Neil NP [address] [phone] 02/20/2025 11:00 AM EDT Office Visit Adult Medicine [facility] [address] [place] [address] Odessa Mtz PA [address] [place] [address] 09/12/2025 11:00 AM EST Ancillary Procedure [facility] [address] [phone] documented as of this encounter Visit Diagnoses Not on filedocumented in this encounter Care Teams Netbackup Engineer Relationship Specialty Start Date End Date Josette Fajardo MD [address] [place] [id number] PCP - General Internal Medicine 03/31/21 documented as of this encounter
--- OUTSIDE RECORDS SUMMARY | 2024-09-17 18:12 | XMS_ITS | Encounter Summary ---
Author Organization [facility] Address [address] [address] Phone Care Team Providers Care Sharepoint Solutions Developer Name Role Phone Josette Fajardo MD Primary Care Provider [phone] Encounter Details Date Type Department Care Team (Late st Contact Info) Description 09/15/2024 Orders Only [facility] [address] [phone] Niya Kimball ARNP [address] [phone] Stage 3b chronic kidney disease (HCC); Hypertension; Anemia in chronic kidney disease; Persistent proteinuria; Hyperkalemia Social History Tobacco Use Types Packs/Day Years Used Date Smoking Tobacco: Former Cigarettes Smokeless Tobacco: Never Alcohol Use Standard Drinks/Week Comments Not Currently 0 (1 standard drink = 0.6 oz pur e alcohol) Sex and Gender Information Value Date Recorded Sex Assigned at Not on file Legal Sex Male 2:05 PM EDT Gender Identity Not on file Sexual Orientation Not on file documented as of this encounter Plan of Treatment Upcoming Encounters Date Type Department Care Team (Late st Contact Info) Description 09/25/2024 10:00 AM EDT Office Visit [facility] [address] [phone] Niya Kimball ARNP [address] [phone] documented as of this encounter Procedures Procedure Name Priority Date/Time Associated Diagnosis Comments PROTEIN / CREATININE RATIO, URINE Routine 09/14/2024 11:32 AM EST Stage 3b chronic kidney disease (HCC) Hypertension Anemia in chronic kidney disease Persistent proteinuria Hyperkalemia VITAMIN D 25 HYDROXY Routine 09/14/2024 11:32 AM EST Stage 3b chronic kidney disease (HCC) Hypertension Anemia in chronic kidney disease Persistent proteinuria Hyperkalemia CBC Routine 09/14/2024 11:32 AM EST Stage 3b chronic kidney disease (HCC) Hypertension Anemia in chronic kidney disease Persistent proteinuria Hyperkalemia PTH, INTACT Routine 09/14/2024 11:32 AM EST Stage 3b chronic kidney disease (HCC) Hypertension Anemia in chronic kidney disease Persistent proteinuria Hyperkalemia RENAL FUNCTION PANEL Routine 09/14/2024 11:32 AM EST Stage 3b chronic kidney disease (HCC) Hypertension Anemia in chronic kidney disease Persistent proteinuria Hyperkalemia documented in this encounter Results * Vitamin D 25 hydroxy (09/14/2024 11:32 AM EST) Vitamin D, 25-OH, Total 38.6 30.0 - 80.0 ng/mL [facility] Blood (Blood, Venous) 09/14/2024 11:32 AM EST 09/14/2024 2:05 PM EST us Niya Kimball [facility] BLOOD ORDERABLES Final Result [facility] [address] [place] [address] * (ABNORMAL) Urine Protein / creatinine ratio (09/14/2024 11:32 AM EST) Protein, Ur 36 mg/dL [facility] Urine Protein/Creati nine Ratio 0.33(H) <=0.20 mg/mg creat [facility] Creatinine, Urine 109.0 mg/dL [facility] Urine (Urine, Clean Catch) 09/14/2024 11:32 AM EST 09/14/2024 2:04 PM EST Niya Kimball [facility] URINE ORDERABLES Final Result YANIRA [facility] [address] [place] [address] * (ABNORMAL) Renal function panel (09/14/2024 11:32 AM EST) Sodium 140 133 - 145 mmol/L [facility] Potassium 5.3 3.5 - 5.5 mmol/L [facility] Chloride 108 96 - 110 mmol/L [facility] Bicarbonate (CO2) 23 21 - 32 mmol/L [facility] Anion Gap 9 3 - 11 [facility] Glucose 102(H) 70 - 100 mg/dL [facility] BUN 43(H) 5 - 25 mg/dL [facility] Creatinine Serum 2.23(H) 0.70 - 1.30 mg/dL [facility] eGFR 30(L) >=60 mL/min/1. 73m2 [facility] Comment:Calculation based on the?Chronic Kidney Disease Epidemiology Collaboration (CKD-EPI) equation refit?without adjustment for race. BUN/Creatinine Ratio 19.3 [facility] Albumin 4.3 3.2 - 5.0 g/dL [facility] Calcium 9.9 8.5 - 10.5 mg/dL [facility] Phosphorus 3.7 2.5 - 4.5 mg/dL [facility] Blood (Blood, Venous) 09/14/2024 11:32 AM EST 09/14/2024 2:05 PM EST us Niya Kimball [facility] BLOOD ORDERABLES Final Result Performing Organization Address City/[facility]/ZIP Co de Phone Number YANIRA [facility] [address] [place] [address] * (ABNORMAL) CBC (09/14/2024 11:32 AM EST) WBC 8.1 4.8 - 10.8 [facility] RBC 3.80(L) 4.50 - 5.50 [facility] Hgb 12.9(L) 13.5 - 17.5 g/dL [facility] Hematocrit 39.3(L) 42.0 - 54.0 % [facility] MCV 104.2(H) 79.0 - 98.0 FL [facility] MCH 34.2(H) 27.0 - 32.0 pcg [facility] MCHC 32.8 32.0 - 37.0 g/dL [facility] RDW 14.0 11.0 - 15.0 % [facility] Platelets 184 130 - 400 [facility] MPV 10.8 7.0 - 11.0 [facility] nRBC Count 0.0 <1.0 % [facility] NRBC Absolute 0.00 <0.10 [facility] Blood (Blood, Venous) 09/14/2024 11:32 AM EST 09/14/2024 2:06 PM EST Niya [facility] BLOOD ORDERABLES Final Result [facility] [address] [place] [address] * (ABNORMAL) PTH, intact (09/14/2024 11:32 AM EST) PTH 127.2(H) 18.5 - 88.0 pcg/mL [facility] Blood (Blood, Venous) 09/14/2024 11:32 AM EST 09/14/2024 2:05 PM EST Nyia Kimball [facility] BLOOD ORDERABLES Final Result Performing Organization Address [facility]/ZIP Co de Phone Number [facility] [address] [place] [address] documented in this encounter Visit Diagnoses Diagnosis Stage 3b chronic kidney disease (HCC) Hypertension Anemia in chronic kidney disease Persistent proteinuria Hyperkalemia documented in this encounter Care Teams Sharepoint Solutions Developer Relationship Specialty Start Date End Date Josette Fajardo MD PCP - General Internal Medicine 02/15/22 documented as of this encounter
--- OUTSIDE RECORDS SUMMARY | 2024-09-17 18:12 | XMS_ITS | Encounter Summary ---
Author Organization [facility] Address [address] [place] [address] Care Team Providers Care Display Fabricator Name Role Phone Josette Fajardo MD Primary Care Provider [phone] Encounter Details Date Type Department Care Team (Late st Contact Info) Description 04/19/2024 9:17 AM EDT Hospital Encounter TH HISTORIC ENCOUNTERS EASTERN CONVERSION ONLY Social History Tobacco Use Types Packs/Day Years [...] for your loved ones. For example, child development assistant or elderly care for an older adult? [...] on file documented as of this encounter Last Filed Vital Signs Vital Sign Reading Time Taken Comments Blood Pressure - - Pulse - - Temperature - - Respiratory Rate - - Oxygen Saturation - - Inhaled Oxygen Concentration - - Weight 74.8 kg (164 lb 12.8 oz) 024 10:18 AM EDT Height 162.6 cm (5' 4 ) 11/14/2023 10:1 8 AM EDT Body Mass Index 28.29 11/14/2023 10:18 AM EDT documented in this encounter Progress Notes * Historical, Notes Results - 04/19/2024 9:25 AM EDT 0925- Patient arrives, ambulatory to unit for scheduled port flush. Right chest port a cath accessed without difficulty and positive, brisk blood return noted. Port flushed and deaccessed per protocol. Guaze dressing with paper tape applied to site. Next appointment for port blood draw in place already. This appointment re-printed and given to patient per his request. He left the unit stable, ambu latory without questions or concerns. documented in this encounter Plan of Treatment Upcoming Encounters Date Type Department Care Team (Late st Contact Info) Description 09/18/2024 11:00 AM EST Appointment [facility] PET Scan [address] [place] [phone] 09/27/2024 3:30 PM EDT Appointment [facility] Endoscopy [address] [place] [address] Delgado Hicks MD [address] [facility] [address] [place] [address] 10/10/2024 10:45 AM EDT Office Visit [facility] Hematology Oncology [address] [place] [phone] Luis Barrera MD [address] [place] [phone] 10/16/2024 12:40 PM EDT Office Visit [facility] [address] [facility] [address] [place] [phone] Larissa Neil NP [address] [facility] [address] [place] [phone] 02/20/2025 11:00 AM EDT Office Visit Adult Medicine [address] [address] Odessa Mtz PA [address] [place] [address] 09/12/2025 11:00 AM EST Ancillary Procedure [facility] [address] [facility] [address] [place] [address] documented as of this encounter Visit Diagnoses Not on filedocumented in this encounter Care Teams Display Fabricator Relationship Specialty Start Date End Date Josette Fajardo MD [address] [place] [address] PCP - General Internal Medicine 03/31/21 documented as of this encounter
--- OUTSIDE RECORDS SUMMARY | 2024-09-17 18:12 | XMS_ITS ---
Author Organization [facility] Address [address] [place] [address] Phone Care Team Providers Care Actionscript Developer Name Role Phone Josette Fajardo MD Primary Care Provider [phone] Active Problems Patient Care Coordination No te Formatting of this note migh t be different from the original. [facility], Option Care Problem Noted Date Diagnosed Date Septic arthritis 07/24/2024 Anemia in chronic kidney disease 03/28/2024 ICD (implantable cardioverter-defibrillator) in place 08/26/2023 Overview (05/23/2024): 09/10 replaced pacemaker with biventricular ICD HFrEF (heart failure with reduced ejection fract ion) 05/10/2023 Overview (07/29/2024): Nonischemic cardiomyopathy 05/10/2023 Status post hip replacement 01/14/2023 Overview (05/23/2024): 01/07 right THR Sick sinus syndrome 09/30/2022 Paroxysmal atrial fibrillation 09/30/2022 Overview (07/29/2024): Ventricular tachycardia (paroxysmal) 09/30/2022 Second degree atrioventricular block 04/02/2022 Ureteral cancer, right 02/16/2022 Anxiety 02/16/2022 Malignant neoplasm of right renal pelvis 022 Stage 3 chronic kidney disease 02/12/2022 H/O right nephrectomy 12/17/2021 Overview (05/23/2024): Right side -- papillary urothelial ca Lumbar radiculopathy, right 10/01/2021 DDD (degenerative disc disease), cervical 2020 Albuminuria 06/07/2019 Benign enlargement of prostate 11/08/2017 Urothelial carcinoma 09/30/2016 Overview (05/23/2024): 07/31 TURB 09/30 TURB, BCG 12/06 high grade right renal pelvis urothelial carcinoma, TURB and radical nephroureterectomy Coronary artery disease invo lving [place] coronary artery of [place] heart without angina pectoris 05/29/2014 Overview (07/29/2024): Stable coronary artery disease status post prior stent Kidney cysts 05/01/2013 Overview (05/23/2024): Incidental finding on MRI of lumbar spine Clubfoot, congenital 05/29/2009 Hyperlipidemia 02/15/2006 Overview (07/29/2024): Major depressive disorder 02/15/2006 Essential hypertension, benign 12/09/2005 Overview (07/29/2024): Current Oncology Plans CENTRAL VENOUS ACCESS ( CVA ) MAINTENANCE / BLOOD DRAW / CATHETER CLEARANCE / DRESSING CHANGE / FLUSH* Plan Start Date:05/31/2024 Plan Provider:Luis Barrera MD Linked Problems Ureteral cancer, right ([facility]) Treatment Medications No medications scheduled. Past Plans No past plan information found. Radiation Treatments * No radiation treatments are documented for this patient in [facility]. Treatments may have been administered in another system. Lifetime Dose Tracking * Chemical Lifetime Dose Automatic Entry Manual Entr y Fluoro Time 0.2 minutes 0.2 minutes 0 minutes CTDIvol 14.25 mGy 14.25 mGy 0 mGy Resolved Problems Problem Noted Date Diagnosed Date Resolved Date Bacteremia 07/30/2024 08/22/2024 Kidney tumor 05/23/2024 07/24/2024 Weight loss 08/16/2022 07/24/2024 Pain of right hip joint 02/16/202201/2025 Primary osteoarthritis of right hip 02/16/2022 07/24/2024 Bradycardia 06/18/2019 07/24/2024 Geraldo hematuria 11/08/2017 07/24/2024 Malignant neoplasm of dome of urinary bladder 11/09/19 18 07/24/2024 Malignant neoplasm of overla pping sites of bladder 11/08/2017 08/22/2024 Abnormal urine cytology 11/08/201701/2025 Low back pain radiating to left leg 05/01/2013 07/24/2024 Overview (05/23/2024): DJD of the lumbar spine
--- OUTSIDE RECORDS SUMMARY | 2024-09-17 18:12 | XMS_ITS ---
Author Organization [facility] Address [address] [place] [phone] Phone Care Team Providers Care Billing Control Clerk Name Role Phone Josette Fajardo MD Primary Care Provider [phone] Transitional Care Management Status:Closed (Closed) Start date:08/02/2024 Enrollment date:08/02/2024 Enrollment reason:Identified using hospital discharge data End date:09/03/2024 Close reason:Completed program Continued Care and Services Coordination
--- OUTSIDE RECORDS SUMMARY | 2024-09-17 18:12 | XMS_ITS | Clinical Summary ---
Author Organization [facility] Address [address] [place] [address] Phone Care Team Providers Care Insulation Supervisor Name Role Phone Josette Fajardo MD Primary Care Provider [phone] Allergies Active Allergy Reactions Criticality Noted Date Comments Sulfamethoxazole-Trimethoprim Hives 2017 Sulfamethoxazole 07/30/2021 Trimethoprim 07/30/2021 Medications LORazepam (ATIVAN) 1 mg tablet Take 1 tablet (1 mg total) by mouth 1 (one) time each day if needed for anxiety. 023 Active metoprolol succinate (TOPROL-XL) 100 mg 24 hr tablet Take 1 tablet (100 mg total) by mouth 1 (one) time each day. 024 Active sertraline (ZOLOFT) 100 mg tablet Take 1.5 tablets (150 mg total) by mouth 1 (one) time each day. Active multivitamin tablet Take 1 tablet by mouth 1 (one) time each day. Active losartan (COZAAR) 25 mg tabletIndications:A therosclerotic heart disease of y[place] coronary artery without angina pectoris,Other cardiomyopathies (CMS/HCC) TAKE 1 TABLET BY MOUTH EVERYDAY AT BEDTIME 30 tablet 024 Active furosemide (LASIX) 40 mg tablet TAKE 1 TABLET BY MOUTH NEEDED FOR LEG SWELLING OR WEIGHT GAIN MORE THAN 3 POUNDS I 1 DAY OR 5 POUNDS IN 1 WEEK. NO MORE THAN ONCE A DAY 90 tablet 1 024 Active atorvastatin (LIPITOR) 80 mg tablet TAKE 1 TABLET BY MOUTH EVERYDAY AT BEDTIME 90 tablet 1 025 Active Eliquis 5 mg tablet TAKE 1 TABLET BY MOUTH EVERY 12 HOURS 60 tablet 5 025 Active polyethylene glycol (Golytely) 236-22.74-6.74 -5.86 gram solution Take 4L by mouth once for one dose. May substitue any PEG. Starting at 6PM the night before your procedure drink 1 8oz glasses at your own pace until you complete half of the gallon. Finish 2nd half of the gallon 5 hours before your procedure. 4000 mL 025 Active bisacodyL (DULCOLAX) 5 mg EC tablet Take 2 tablets by mouth right before beginning bowel prep. See instructions provided by the office 2 tablet 025 Active apixaban (ELIQUIS) 5 mg tablet Take 1 tablet (5 mg total) by mouth every 12 (twelve) hours. 023 2024 Discontinued atorvastatin (LIPITOR) 80 mg tablet Take 1 tablet (80 mg total) by mouth at bedtime. 90 tablet 024 2024 Discontinued ceFAZolin 2 g in dextrose 5 % 50 mL IVPB Infuse 2 g into a venous catheter every 8 (eight) hours for 24 days. 025 2024 Active Problems Patient Care Coordination No te [...] radical nephroureterectomy Coronary artery disease invo lving yankton coronary artery of [place] heart without angina pectoris 05/29/2014 Overview (07/29/2024): Stable coronary artery disease status post prior stent Kidney cysts 05/01/2013 Overview (05/23/2024): Incidental finding on MRI of lumbar spine Clubfoot, congenital 05/29/2009 Hyperlipidemia 02/15/2006 Overview (07/29/2024): Major depressive disorder 02/15/2006 Essential hypertension, benign 12/09/2005 Overview (07/29/2024): Resolved Problems Problem Noted Date Diagnosed Date [...] Overview (05/23/2024): DJD of the lumbar spine Encounters Date Type Department Care Team Description 09/12/2024 10:00 AM EST Ancillary Procedure [facility] Cardiology [facility] 154 300 [facility] [address] [place] [address] Encounter for adjustment or management of cardiac device 08/29/2024 3:00 PM EST Office Visit Infectious Disease - [place] [address] [phone] Mahnaz Amaya MD MSSA bacteremia (Primary Dx); Bloodstream infection associated with central venous catheter, subsequent encounter; Staphylococcal arthritis of right wrist (CMS/HCC) 08/27/2024 Telephone Gastroenterology [address] [phone] Jocelynn Mendoza LPN Anticoagulation (Colonoscopy on 09/27/[address] Hicks) 08/22/2024 10:40 AM EST Ancillary Procedure [facility] Cardiology [facility] [address] [facility] [address] [place] [address] 08/22/2024 10:30 AM EST Office Visit Adult Medicine [address] [phone] Josette Fajardo MD Pyogenic arthritis of right wrist, due to unspecified organism (CMS/HCC) (Primary Dx); Coronary artery disease involving yankton coronary artery of y[place] heart without angina pectoris; Essential hypertension, benign; Paroxysmal atrial fibrillation (CMS/HCC); HFrEF (heart failure with reduced ejection fraction) (CMS/HCC) 08/22/[address] [phone] Josette Fajardo MD Request For Order(s) ([employer] Caregiver order # [id number] received. Please sign, date and fax back to [phone]. Placed in provider's bin.) 08/22/2024 Telephone Infectious Disease [facility] [address] [phone] Mahnaz Amaya MD 08/17/2024 Telephone Lung Screening Program [facility] 299 [facility] [address] [place] [phone] Rosy Villafuerte MA 08/16/[address] [phone] Josette Fajardo MD Request For Order(s) ([employer] order # [id number] received and placed in provider's bin. Please sign, date and fax back to [phone].) 08/16/[address] [phone] Mahnaz Amaya MD Provider Call Back 08/15/2024 10:45 AM EST Office Visit [facility] Hematology Oncology [address] [place] [phone] Luis Delacruz MD Malignant neoplasm of overlapping sites of bladder (CMS/HCC) (Primary Dx); Ureteral cancer, right (CMS/HCC); Anemia in stage 3b chronic kidney disease ([facility]/HCC); ICD (implantable cardioverter-defibrill ator) in place; Paroxysmal atrial fibrillation ([facility]/HCC); Low back pain radiating to left leg 08/10/[address] [phone] Josette Fajardo MD VNA Order ([employer] (order# [id number])) 08/09/2024 Telephone Infectious Disease [address] [place] [address] Mahnaz Amaya MD PROVIDER CALL BACK 08/03/[address] [phone] Josette Fajardo MD Wound Infection 08/02/2024 Telephone Infectious Disease [facility] 175 [facility] [address] [place] [address] Mahnaz Amaya MD PROVIDER CALL BACK 08/01/2024 9:21 AM EST Anesthesia Event [facility] Cardiac [employer] [address] [place] [address] Jean-Paul Varghese MD 08/01/2024 8:46 AM EST - 08/01/2024 11:59 PM EST Hospital Encounter [facility] [employer] [address] [place] [address] Discharge Disposition: Home or Self Care 07/30/2024 1:56 PM EST - 08/02/2024 4:25 PM EST Hospital Encounter [facility] Medical Surgical Unit [address] [place] [address] Avinash Jason MD Bukalo, Nermina, MD Mohani, Priya, MD Bacteremia (Primary Dx); Staphylococcal arthritis of right wrist ([facility]) Discharge Disposition: Home-Health Care Svc 07/26/2024 12:19 PM EST Anesthesia Event [facility] Main OR [address] [place] [address] Earl Garcia DO 07/26/2024 11:30 AM EST - 07/26/2024 1:00 PM EST Surgery [facility] Main OR [address] [place] [phone] Octavio Roy MD I&D right wrist, ARTHROTOMY 07/24/2024 6:35 PM EST - 07/27/2024 3:31 PM EST Hospital Encounter [facility] Medical Surgical Unit [address] [place] [address] Vatrenko, CesarMD Niles garcia Rizwan, MD Seralathan, Manikandan, MD Pyogenic arthritis of right wrist, due to unspecified organism (CMS/HCC) (Primary Dx); Staphylococcal arthritis of right wrist (CMS/HCC) Discharge Disposition: Home-Health Care [facility] 07/24/2024 2:30 PM EST Office Visit Adult [address] [phone] Odessa Mtz PA Right wrist pain (Primary Dx) 07/24/2024 9:20 AM EST Ancillary Procedure [facility] Cardiology [facility] [address] [facility] [address] [place] [address] 07/16/2024 1:24 PM EST - 07/16/2024 11:59 PM EST Hospital Encounter 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) [C65.1] Discharge Disposition: Home or Self Care 07/16/2024 Telephone [facility] Cardiology [facility] [address] [facility] [address] [place] [address] Indra Valenzuela MD Med Refill (Lasix) 06/19/2024 2:05 PM EST Ancillary Procedure [facility] [address] [facility] [address] [place] [address] from Last 3 Months Immunizations Name Administration Dates Next Due COVID-19 (Pfizer/Comirnaty) 12yo and older 04/25/2024 Influenza trivalent, 0.5mL ( Fluad) 65yo and older 04/29/2023,04/29/2022 Influenza trivalent, 0.5mL ( Fluzone High-dose) 65yo and older 05/01/2021,04/23/2020,03/10/2019,03/29,09/06/2017 Influenza trivalent, with pr eservative (Fluzone; Afluria) 6mo and older 05/04/2021 Influenza, Unspecified 05/03/2019 Pfizer (ages 12 & older) Biv alent, COVID-19 07/27/2023 Pfizer SARS-CoV-2 COVID-19, mRNA, LNP-S, preservative free 06/06/2022,05/27/2021,10/16/2020,09/25 Pneumococcal conjugate 13 va lent (Prevnar 13, PCV13) 2mo and older 09/30/2016 Pneumococcal conjugate 20 va lent (Prevnar 20, PCV 20) 2mo and older 02/01/2024 Pneumococcal polysaccharide 23 valent (Pneumovax 23) 2yo and older 08/11/2018 Respiratory syncytial virus (RSV), unspecified 06/02/2023 Td Tetanus diptheria (Tdvax) 7yo and older 05/13/2021,05/13/2021 Tdap Tetanus diptheria acell ular pertussis (Boostrix; Adacel) 7yo and older 05/23/2008 Surgical History Surgery Date Site/Laterality Comments COLONOSCOPY 06/08/2015 Medical History Medical History Date Comments Depression DX:Depression Hypertension DX:Hypertension Hypercholesterolemia DX:Hypercho lesterolemia Bladder cancer (CMS/HCC) Sick sinus syndrome (CMS/HCC) Family History Medical History Relation Name Comments Cancer Other Relation Name Status Comments Other Social History Tobacco Use Types Packs/Day Years Used Date Smoking Tobacco: Former Cigarettes Q uit: 10/28/2016 Tobacco Cessation:Counseling Given: Not Answered Alcohol Use Standard Drinks/Week Comments No 0 [...] Record ed Within the last 3 months, yoly kumar many times did you visit the emergency [...] care for your loved ones. For example, childcare center director or elderly care for an older adult? [...] on file Sexual Orientation Not on file Obstetrics History Last Filed Vital Signs Vital Sign Reading Time Taken Comments Blood Pressure 122/76 08/29/2024 2:54 PM EST Pulse 88 08/22/2024 10:33 AM EST Temperature 36.4 ??C (97.6 ??F) 08/29/2024 2:54 PM ES T Respiratory Rate 14 08/22/2024 10:3 3 AM EST Oxygen Saturation 91% 08/29/2024 2:54 PM EST Inhaled Oxygen Concentration - - Weight 75.7 kg (166 lb 12.8 oz) 08/29/2024 2:54 PM EST Height 162.6 cm (5' 4 ) 08/22/2024 10:3 3 AM EST Body Mass Index 28.63 08/22/2024 10:33 AM EST Plan of Treatment Upcoming Encounters Date Type Department Care Team (Late st Contact Info) Description 09/18/2024 11:00 AM EST Appointment [facility] PET Scan [address] [place] [address] 09/27/2024 3:30 PM EDT Appointment [facility] Endoscopy [address] [place] [phone] Delgado Hicks MD 175 [facility] 200 [place] [address] 10/10/2024 10:45 AM EDT Office Visit [facility] Hematology Oncology [address] [place] [address] Luis Barrera MD [address] [place] [phone] 10/16/2024 12:40 PM EDT Office Visit [facility] Cardiology [facility] 154 300 [facility] [address] [place] [phone] Larissa Neil NP 300 [facility] 154 [place] [phone] 02/20/2025 11:00 AM EDT Office Visit Adult Medicine [facility] [address] [place] [address] Odessa Mtz PA [address] [place] [address] 09/12/2025 11:00 AM EST Ancillary Procedure [facility] Cardiology [facility] 154 300 [facility] [address] [place] [address] Health Maintenance Due Date Last Done Comments Zoster Vaccines (1 of 2) 1969 RSV Immunization Patients 60+ Years Old (1 - Risk 60-74 years 1-dose series) 2010 06/02/2023 Abdominal Aortic Aneurysm (AAA) Screen 06/26/2022 Medicare Annual Wellness Visit 06/26/2022 Influenza Vaccine (#1) 2024 , 04/29/2022, 05/04/2021, Additional history exists Colorectal Cancer Screening: Colonoscopy 05/15/2025 05/15/2020 Falls Risk Assessment 08/02/2025 08/02/2024 Depression Screening 08/19/2025 08/19/2024 Social Influencers of Health Screening 08/19/2025 08/19/2024 Hypertension/CHF/CAD Annual BMP Blood Test 09/14/2025 09/14/2024, 08/22/2024, 08/01/2024, Additional history exists Cholesterol Screening (Lipid Panel) 08/22/2029 08/22/2024 DTaP,Tdap,and Td Vaccines (4 - Td or Tdap) 05/13/2031 05/13/2021, 05/13/2021, 05/23/2008 Hepatitis C Screening Addressed 06/07/2019 Overri dden with the intention of not completing the topic RSV Immunization Patients Under 20 months Aged Out 06/02/2023 No longer eligible based on patient's age to complete this topic Pneumococcal Vaccine: 50+ Years Completed 02/01/2024, 08/11/2018, 09/30/2016 COVID-19 Vaccine Completed 04/25/2024, 04/2024, 07/27/2023, Additional history exists HIB Vaccines Aged Out No longer eligi ble based on patient's age to complete this topic HPV Vaccines Aged Out No longer eligi ble based on patient's age to complete this topic Hepatitis A Vaccines Aged Out No long er eligible based on patient's age to complete this topic Hepatitis B Vaccines Aged Out No long er eligible based on patient's age to complete this topic IPV Vaccines Aged Out No longer eligi ble based on patient's age to complete this topic MMR Vaccines Aged Out No longer eligi ble based on patient's age to complete this topic Meningococcal ACWY Vaccine Aged Out N o longer eligible based on patient's age to complete this topic Meningococcal B Vacine Aged Out No lo nger eligible based on patient's age to complete this topic Varicella Vaccines Aged Out No longer eligible based on patient's age to complete this topic Procedures Procedure Name Priority Date/Time Associated Diagnosis Comments PARATHYROID HORMONE INTACT Routine 09/14/2024 11:32 AM EST Stage 3 chronic kidney disease (CMS/HCC) Essential hypertension, benign COMPLETE BLOOD COUNT Routine 09/14/2024 11:32 AM EST Stage 3 chronic kidney disease (CMS/HCC) Essential hypertension, benign RENAL FUNCTION PANEL Routine 09/14/2024 11:32 AM EST Stage 3 chronic kidney disease (CMS/HCC) Essential hypertension, benign PROTEIN AND CREATININE WITH RATIO, URINE Routine 09/14/2024 11:32 AM EST Stage 3 chronic kidney disease (CMS/HCC) Essential hypertension, benign VITAMIN D 25 HYDROXY Routine 09/14/2024 11:32 AM EST Stage 3 chronic kidney disease (CMS/HCC) Essential hypertension, benign CARDIAC DEVICE CHECK- IN [facility] Routine 09/12/2024 9:54 AM EST Encounter for adjustment or management of cardiac device CBC WITH AUTO DIFFERENTIAL Routine 08/22/2024 11:12 AM EST Pyogenic arthritis of right wrist, due to unspecified organism (CMS/HCC) BASIC METABOLIC PANEL Routine 08/22/2024 11:12 AM EST Pyogenic arthritis of right wrist, due to unspecified organism (CMS/HCC) CBC AND DIFFERENTIAL Routine 08/22/2024 11:12 AM EST Pyogenic arthritis of right wrist, due to unspecified organism (CMS/HCC) LIPID PANEL WITH REFLEX TO DIRECT LDL Routine 08/22/2024 11:12 AM EST Coronary artery disease involving y[place] coronary artery of [place] heart without angina pectoris CARDIAC DEVICE CHECK- REMOTE- MURJ Routine 08/22/2024 10:38 AM EST FLACO COMPLETE Routine 08/01/2024 9:55 AM EST Bacteremia IR REMOVE TUNNELED CVAD W SUBQ PORT OR PUMP Routine 08/01/2024 9:04 AM EST CULTURE IV CATHETER Routine 08/01/2024 8 :57 AM EST CBC WITH AUTO DIFFERENTIAL Routine 08/01/2024 5:30 AM EST CBC AND DIFFERENTIAL Routine 08/01/2024 5:30 AM EST BASIC METABOLIC PANEL Routine 08/01/2024 5:30 AM EST TRANSTHORACIC ECHOCARDIOGRAM (TTE) COMPLETE W/ CONTRAST Routine 07/31/2024 8:35 AM EST Bacteremia CBC WITH AUTO DIFFERENTIAL Routine 07/31/2024 5:23 AM EST CBC AND DIFFERENTIAL Routine 07/31/2024 5:23 AM EST MAGNESIUM Routine 07/31/2024 5:23 AM EST COMPREHENSIVE METABOLIC PANEL Routine 07/31/2024 5:23 AM EST CBC WITH AUTO DIFFERENTIAL STAT 07/30/2024 1:52 PM EST BASIC METABOLIC PANEL STAT 07/30/2024 1:52 PM EST CBC AND DIFFERENTIAL STAT 07/30/2024 1:52 PM EST LACTATE, WITH REFLEX STAT 07/30/2024 1:52 PM EST CULTURE BLOOD STAT 07/30/2024 1:52 PM EST CULTURE BLOOD STAT 07/30/2024 1:52 PM EST CBC WITH AUTO DIFFERENTIAL Routine 07/27/2024 5:56 AM EST BASIC METABOLIC PANEL Routine 07/27/2024 5:56 AM EST CBC AND DIFFERENTIAL Routine 07/27/2024 5:56 AM EST CULTURE BODY FLUID WITH GRAM STAIN Routine 07/26/2024 12:53 PM EST Staphylococcal arthritis of right wrist (CMS/HCC) CULTURE BODY FLUID WITH GRAM STAIN Routine 07/26/2024 12:51 PM EST Staphylococcal arthritis of right wrist (CMS/HCC) ARTHROTOMY WRIST 07/26/2024 12:1 9 PM EST Staphylococcal arthritis of right wrist (CMS/HCC) TH AN NERVE BLOCK SUPRACLAVICULAR (NO CHARGE) Routine 07/26/2024 12:07 PM EST TH AN NERVE BLOCK SUPRACLAVICULAR (CHARGE) Routine 07/26/2024 12:07 PM EST CBC WITH AUTO DIFFERENTIAL Routine 07/26/2024 6:26 AM EST CBC AND DIFFERENTIAL Routine 07/26/2024 6:26 AM EST BASIC METABOLIC PANEL Routine 07/26/2024 6:26 AM EST MAGNESIUM Routine 07/26/2024 6:26 AM EST PHOSPHORUS Routine 07/26/2024 6:26 AM EST MRSA PCR Routine 07/25/2024 8:42 AM EST CBC WITH AUTO DIFFERENTIAL Routine 07/25/2024 6:00 AM EST CBC AND DIFFERENTIAL Routine 07/25/2024 6:00 AM EST MAGNESIUM Routine 07/25/2024 6:00 AM EST BASIC METABOLIC PANEL Routine 07/25/2024 6:00 AM EST XR WRIST 3+ VIEWS RIGHT STAT 07/25/2024 12:20 AM EST CULTURE BLOOD Routine 07/24/2024 11:30 PM EST BLOOD CULTURE PATHOGENS BY PCR Routine 07/24/2024 11:20 PM EST CULTURE BLOOD Routine 07/24/2024 11:20 PM EST CRYSTAL IDENTIFICATION, BODY FLUID STAT 07/24/2024 7:47 PM EST CULTURE BODY FLUID WITH GRAM STAIN STAT 07/24/2024 7:47 PM EST C-REACTIVE PROTEIN STAT Add-on 07/24/2024 4: 06 PM EST SEDIMENTATION RATE STAT Add-on 07/24/2024 4: 06 PM EST CBC WITH AUTO DIFFERENTIAL STAT 07/24/2024 4:06 PM EST BASIC METABOLIC PANEL STAT 07/24/2024 4:06 PM EST CBC AND DIFFERENTIAL STAT 07/24/2024 4:06 PM EST CARDIAC DEVICE CHECK- REMOTE- MURJ Routine 07/24/2024 9:17 AM EST CARDIAC DEVICE CHECK- REMOTE- MURJ Routine 06/19/2024 2:04 PM EST from Last 3 Months Results * (ABNORMAL) Protein and creatinine with ratio, urine (09/14/2024 11:32 AM EST) Protein, Urine 36 mg/dL LAB CHEMISTRY METHOD 09/14/2024 5:51 PM EST [facility] Prot/Creat, Ur 0.33(H) <=0.20 mg/mg creat LAB CHEMISTRY METHOD 09/14/2024 5:51 PM EST [facility] Creatinine, Urine 109.0 mg/dL LAB CHEMISTRY METHOD 09/14/2024 5:51 PM [facility] Urine Urine specimen obtained by clean catch procedure / Unknown Non-blood Collection / Unknown 09/14/2024 11:32 AM EST 09/14/2024 11:32 AM EST [facility] LAB URINE ORDERABLES Final R esult Performing Organization Address City/[facility]/ZIP Co de Phone Number [facility] [address] [place] [address], [place] [phone] * Vitamin D 25 hydroxy (09/14/2024 11:32 AM EST) Pathologist [facility] Vit D, 25-Hydroxy 38.6 30.0 - 80.0 ng/mL LAB CHEMISTRY METHOD 09/14/2024 5:17 PM [facility] Blood Venous blood specimen / Unknown Venipuncture / Unknown 09/14/2024 11:32 AM EST 09/14/2024 11:32 AM EST [facility] LAB BLOOD ORDERABLES Final R esult [facility] [address] [place] [address], [place] [phone] * (ABNORMAL) Complete blood count (09/14/2024 11:32 AM EST) WBC 8.1 4.8 - 10.8 K/Health system LAB HEMETOLOGY METHOD 09/14/2024 2:43 PM [facility] RBC 3.80(L) 4.50 - 5.50 M/Health system LAB HEMETOLOGY METHOD 09/14/2024 2:43 PM [facility] Hemoglobin 12.9(L) 13.5 - 17.5 g/dL LAB HEMETOLOGY METHOD 09/14/2024 2:43 PM [facility] Hematocrit 39.3(L) 42.0 - 54.0 % LAB HEMETOLOGY METHOD 09/14/2024 2:43 PM [facility] MCV 104.2(H) 79.0 - 98.0 FL LAB HEMETOLOGY METHOD 09/14/2024 2:43 PM [facility] MCH 34.2(H) 27.0 - 32.0 pcg LAB HEMETOLOGY METHOD 09/14/2024 2:43 PM [facility] MCHC 32.8 32.0 - 37.0 g/dL LAB HEMETOLOGY METHOD 09/14/2024 2:43 PM [facility] RDW 14.0 11.0 - 15.0 % LAB HEMETOLOGY METHOD 09/14/2024 2:43 PM [facility] Platelets 184 130 - 400 K/mcL LAB HEMETOLOGY METHOD 09/14/2024 2:43 PM [facility] MPV 10.8 7.0 - 11.0 FL LAB HEMETOLOGY METHOD 09/14/2024 2:43 PM [facility] NRBC 0.0 <1.0 % LAB HEMETOLOGY METHOD 09/14/2024 2:43 PM [facility] NRBC Absolute 0.00 <0.10 K/mcL LAB HEMETOLOGY METHOD 09/14/2024 2:43 PM [facility] Blood Venous blood specimen / Unknown Venipuncture / Unknown 09/14/2024 11:32 AM EST 09/14/2024 11:32 AM EST us Niya WILLSP LAB BLOOD ORDERABLES Final R esult [facility] [address] [place] [address], [place] [phone] * (ABNORMAL) Parathyroid hormone intact (09/14/2024 11:32 AM EST) PTH 127.2(H) 18.5 - 88.0 pcg/mL LAB CHEMISTRY METHOD 09/14/2024 5:17 PM [facility] Blood Venous blood specimen / Unknown Venipuncture / Unknown 09/14/2024 11:32 AM EST 09/14/2024 11:32 AM EST Niya Kimball [facility] LAB BLOOD ORDERABLES Final R esult [facility] [address] [place] [address], * (ABNORMAL) Renal function panel (09/14/2024 11:32 AM EST) [facility] Sodium 140 133 - 145 mmol/L LAB CHEMISTRY METHOD 09/14/2024 5:55 PM [facility] Potassium 5.3 3.5 - 5.5 mmol/L LAB CHEMISTRY METHOD 09/14/2024 5:55 PM [facility] Chloride 108 96 - 110 mmol/L LAB CHEMISTRY METHOD 09/14/2024 5:55 PM [facility] CO2 23 21 - 32 mmol/L LAB CHEMISTRY METHOD 09/14/2024 5:55 PM [facility] Anion Gap 9 3 - 11 LAB CHEMISTRY METHOD 09/14/2024 5:55 PM [facility] Glucose 102(H) 70 - 100 mg/dL LAB CHEMISTRY METHOD 09/14/2024 5:55 PM [facility] BUN 43(H) 5 - 25 mg/dL LAB CHEMISTRY METHOD 09/14/2024 5:55 PM [facility] Creatinine 2.23(H) 0.70 - 1.30 mg/dL LAB CHEMISTRY METHOD 09/14/2024 5:55 PM [facility] eGFR 30(L) >=60 mL/min/1. 73m2 LAB CHEMISTRY METHOD 09/14/2024 5:55 PM [facility] Comment:Calculation based on the??Chronic Kidney Disease Epidemiology Collaboration (CKD-EPI) equation refit??without adjustment for race. BUN/Creatinine Ratio 19.3 LAB CHEMISTRY METHOD 09/14/2024 5:55 PM EST [facility] Albumin 4.3 3.2 - 5.0 g/dL LAB CHEMISTRY METHOD 09/14/2024 5:55 PM [facility] Calcium 9.9 8.5 - 10.5 mg/dL LAB CHEMISTRY METHOD 09/14/2024 5:55 PM [facility] Phosphorus 3.7 2.5 - 4.5 mg/dL LAB CHEMISTRY METHOD 09/14/2024 5:55 PM EST [facility] Blood Venous blood specimen / Unknown Venipuncture / Unknown 09/14/2024 11:32 AM EST 09/14/2024 11:32 AM EST Niya Jigar [facility] LAB BLOOD ORDERABLES Final R esult [facility] [address] [place] [address], * CARDIAC DEVICE CHECK- [facility] (09/12/2024 9:54 AM EST) Date Time Interrogation Session [id number] CV DEVICE CHECK Implantable Pulse Generator Mechanical Cad Designer MDT CV DEVICE CHECK Implantable Pulse Generator Type HONING JOB SETTER-D CV DEVICE CHECK Implantable Pulse Generator Model Claria MRI Quad CRTD [id number] CV DEVICE CHECK Implantable Pulse Generator Serial Number [id number] CV DEVICE CHECK Implantable Pulse Generator Implant Date 20230822 CV DEVICE CHECK Battery Status Middle of Service CV DEVICE CHECK Estuardo Statistic RA Percent Paced 43.60 CV DEVICE CHECK HONING JOB SETTER Statistic HONING JOB SETTER Percent Paced 98.90 CV DEVICE CHECK Atrial Tachy Statistic AT/AF Louin Percent 47.10 CV DEVICE CHECK Lead Channel Sensing Intrinsic Amplitude 1.500 CV DEVICE CHECK Lead Channel Setting Sensing Sensitivity 0.30 CV DEVICE CHECK Lead Channel Impedance Value 399 CV DEVICE CHECK Lead Channel Setting Pacing Amplitude 2.000 CV DEVICE CHECK Lead Channel Setting Pacing Pulse Width 0.4 CV DEVICE CHECK Lead Channel Sensing Intrinsic Amplitude 18.400 CV DEVICE CHECK Lead Channel Setting Sensing Sensitivity 0.30 CV DEVICE CHECK Lead Channel Impedance Value 418 CV DEVICE CHECK Lead Channel Pacing Threshold Amplitude 0.750 CV DEVICE CHECK Lead Channel Pacing Threshold Pulse Width 0.4 CV DEVICE CHECK Lead Channel RV Pacing Threshold Date 2024-09-12 CV DEVICE CHECK Lead Channel Setting Pacing Amplitude 2.000 CV DEVICE CHECK Lead Channel Setting Pacing Pulse Width 0.4 CV DEVICE CHECK Lead Channel Impedance Value 665 CV DEVICE CHECK Lead Channel Pacing Threshold Amplitude 0.750 CV DEVICE CHECK Lead Channel Pacing Threshold Pulse Width 0.4 CV DEVICE CHECK Lead Channel Pacing Threshold Date 2024-09-12 CV DEVICE CHECK Lead Channel Setting Pacing Amplitude 1.250 CV DEVICE CHECK Lead Channel Setting Pacing Pulse Width 0.4 CV DEVICE CHECK Estuardo Setting Mode (NBG Code) DDDR CV DEVICE CHECK Ventricular chambers paced during HONING JOB SETTER pacing. LV->RV CV DEVICE CHECK Estuardo Setting Lower Rate Limit 60 CV DEVICE CHECK Estuardo Setting AT Mode Switch Rate 171 CV DEVICE CHECK Esturado Setting Maximum Tracking Rate 130 CV DEVICE CHECK Estuardo Setting Maximum Sensor Rate 130 CV DEVICE CHECK RV HV Impedance 59 CV D EVICE CHECK Zone Setting Type Category AT/AF CV DEVICE CHECK Therapies All Rx Off CV DEVICE CHECK Zone Setting Status Monitor CV DEVICE CHECK Zone ID 2 CV DEVICE CHECK Zone Setting Type Category VF CV DEVICE CHECK Therapies ATP During Charging, 35J x 6 CV DEVICE CHECK Zone Setting Status On CV DEVICE CHECK Zone ID 3 CV DEVICE CHECK Zone Setting Type Category FVT CV DEVICE CHECK Therapies All Rx Off CV DEVICE CHECK Zone Setting Status Off CV DEVICE CHECK Zone ID 4 CV DEVICE CHECK Zone Setting Type Category VT CV DEVICE CHECK Therapies All Rx Off CV DEVICE CHECK Zone Setting Status Off CV DEVICE CHECK Zone ID 5 CV DEVICE CHECK Date of Service 2024-09-12 CV DEVICE CHECK Anatomical Region Laterality Modality Device Interroga tion 09/12/2024 Impressions 09/17/2024 7:32 AM EST Normal In-Office: With Events * Normal Device Function * Events or Alerts: AF events- persistent/ mainly controlled * Battery: MOS, 7.3 years * Sensing, impedance and thresholds reviewed and tested * Presenting Rhythm: AF - BP 60's * Underlying Rhythm: AF- VS 40's * Heart Rate Histograms reviewed * Pacing and Detection Parameters were evaluated Heart Failure Diagnostic: Stable * Heart failure diagnostics assessed through the device * Status: Stable * No overt HF present Narrative Procedure Note Jean-Paul Amador MD - 09/17/2024 IMPRESSION: Normal In-Office: With Events * Normal Device Function * Events or Alerts: AF events- persistent/ mainly controlled * Battery: MOS, 7.3 years * Sensing, impedance and thresholds reviewed and tested * Presenting Rhythm: AF - BP 60's * Underlying Rhythm: AF- VS 40's * Heart Rate Histograms reviewed * Pacing and Detection Parameters were evaluated Heart Failure Diagnostic: Stable * Heart failure diagnostics assessed through the device * Status: Stable * No overt HF present us Order Referral Cardiovascular CV IMPLANTABLE CAR DIAC DEVICE PROCEDURES Final Result * (ABNORMAL) Lipid panel with reflex to direct LDL (08/22/2024 11:12 AM EST) Cholesterol 136 0 - 200 mg/dL LAB CHEMISTRY METHOD 08/22/2024 5:18 PM [facility] Triglycerides 115 0 - 150 mg/dL LAB CHEMISTRY METHOD 08/22/2024 5:18 PM [facility] HDL 39(L) >=40 mg/dL LAB CHEMISTRY METHOD 08/22/2024 5:18 PM [facility] LDL Calculated 74 0 - 100 mg/dL LAB CHEMISTRY METHOD 08/22/2024 5:18 PM [facility] VLDL Cholesterol Fredrick 23 mg/dL LAB CHEMISTRY METHOD 08/22/2024 5:18 PM [facility] Non HDL Chol. (LDL+VLDL) 97 <145 mg/dL LAB CHEMISTRY METHOD 08/22/2024 5:18 PM [facility] Chol/HDL Ratio 3.5 0.0 - 4.4 LAB CHEMISTRY METHOD 08/22/2024 5:18 PM [facility] Blood Venous blood specimen / Unknown Venipuncture / Unknown 08/22/2024 11:12 AM EST 08/22/2024 11:12 AM EST us Josette Fajardo MD LAB BLOOD ORDERABLES Final Resul t [facility] [address] [place] [address], * (ABNORMAL) CBC auto differential (08/22/2024 11:12 AM EST) Only the most recent of8 resultswithin the time period is included. WBC 7.1 4.8 - 10.8 K/mcL LAB HEMETOLOGY METHOD 08/22/2024 12:13 PM [facility] RBC 3.70(L) 4.50 - 5.50 M/mcL LAB HEMETOLOGY METHOD 08/22/2024 12:13 PM [facility] Hemoglobin 12.6(L) 13.5 - 17.5 g/dL LAB HEMETOLOGY METHOD 08/22/2024 12:13 PM [facility] Hematocrit 38.1(L) 42.0 - 54.0 % LAB HEMETOLOGY METHOD 08/22/2024 12:13 PM [facility] MCV 104.1(H) 79.0 - 98.0 FL LAB HEMETOLOGY METHOD 08/22/2024 12:13 PM [facility] MCH 34.4(H) 27.0 - 32.0 pcg LAB HEMETOLOGY METHOD 08/22/2024 12:13 PM [facility] MCHC 33.1 32.0 - 37.0 g/dL LAB HEMETOLOGY METHOD 08/22/2024 12:13 PM [facility] RDW 13.4 11.0 - 15.0 % LAB HEMETOLOGY METHOD 08/22/2024 12:13 PM [facility] Platelets 139 130 - 400 K/mcL LAB HEMETOLOGY METHOD 08/22/2024 12:13 PM [facility] MPV 10.7 7.0 - 11.0 FL LAB HEMETOLOGY METHOD 08/22/2024 12:13 PM [facility] NRBC 0.0 <1.0 % LAB HEMETOLOGY METHOD 08/22/2024 12:13 PM [facility] NRBC Absolute 0.00 <0.10 K/mcL LAB HEMETOLOGY METHOD 08/22/2024 12:13 PM [facility] Neutrophils Relative 68.7 % LAB HEMETOLOGY METHOD 08/22/2024 12:13 PM [facility] Lymphocytes Relative 17.0 % LAB HEMETOLOGY METHOD 08/22/2024 12:13 PM [facility] Monocytes Relative 8.9 % LAB HEMETOLOGY METHOD 08/22/2024 12:13 PM [facility] Eosinophils Relative 4.1 % LAB HEMETOLOGY METHOD 08/22/2024 12:13 PM [facility] Basophils Relative 0.7 % LAB HEMETOLOGY METHOD 08/22/2024 12:13 PM [facility] Immature Granulocytes Relative 0.6 % LAB HEMETOLOGY METHOD 08/22/2024 12:13 PM [facility] Neutrophils Absolute 4.84 1.50 - 7.00 K/mcL LAB HEMETOLOGY METHOD 08/22/2024 12:13 PM [facility] Lymphocytes Absolute 1.20 1.00 - 5.00 K/mcL LAB HEMETOLOGY METHOD 08/22/2024 12:13 PM [facility] Monocytes Absolute 0.63 0.20 - 1.00 K/mcL LAB HEMETOLOGY METHOD 08/22/2024 12:13 PM [facility] Eosinophils Absolute 0.29 0.00 - 0.50 K/Health system LAB HEMETOLOGY METHOD 08/22/2024 12:13 PM [facility] Basophils Absolute 0.05 0.00 - 0.20 K/Health system LAB HEMETOLOGY METHOD 08/22/2024 12:13 PM [facility] Immature Granulocytes Absolute 0.04(H) 0.00 - 0.03 K/Health system LAB HEMETOLOGY METHOD 08/22/2024 12:13 PM [facility] Blood Venous blood specimen / Unknown Venipuncture / Unknown 08/22/2024 11:12 AM EST 08/22/2024 11:12 AM EST Naun Cortez MD LAB BLOOD ORDERABLES Fi nal Result [facility] [address] [place] [address], [place] [phone] * (ABNORMAL) Basic metabolic panel (08/22/2024 11:12 AM EST) Only the most recent of7 resultswithin the time period is included. Sodium 136 133 - 145 mmol/L LAB CHEMISTRY METHOD 08/22/2024 6:01 PM [facility] Potassium 4.6 3.5 - 5.5 mmol/L LAB CHEMISTRY METHOD 08/22/2024 6:01 PM [facility] Chloride 104 96 - 110 mmol/L LAB CHEMISTRY METHOD 08/22/2024 6:01 PM [facility] CO2 24 21 - 32 mmol/L LAB CHEMISTRY METHOD 08/22/2024 6:01 PM [facility] Anion Gap 8 3 - 11 LAB CHEMISTRY METHOD 08/22/2024 6:01 PM [facility] Glucose 111(H) 70 - 100 mg/dL LAB CHEMISTRY METHOD 08/22/2024 6:01 PM [facility] BUN 54(H) 5 - 25 mg/dL LAB CHEMISTRY METHOD 08/22/2024 6:01 PM [facility] Creatinine 2.31(H) 0.70 - 1.30 mg/dL LAB CHEMISTRY METHOD 08/22/2024 6:01 PM [facility] eGFR 29(L) >=60 mL/min/1. 73m2 LAB CHEMISTRY METHOD 08/22/2024 6:01 PM [facility] Comment:Calculation based on the??Chronic Kidney Disease Epidemiology Collaboration (CKD-EPI) equation refit??without adjustment for race. BUN/Creatinine Ratio 23.4 LAB CHEMISTRY METHOD 08/22/2024 6:01 PM [facility] Calcium 9.8 8.5 - 10.5 mg/dL LAB CHEMISTRY METHOD 08/22/2024 6:01 PM [facility] Blood Venous blood specimen / Unknown Venipuncture / Unknown 08/22/2024 11:12 AM EST 08/22/2024 11:12 AM EST Naun Cortez MD LAB BLOOD ORDERABLES Fi nal Result [facility] [address] [place] [address], * Cardiac device check - Remote- MURJ (08/22/2024 10:38 AM EST) Only the most recent of3 resultswithin the time period is included. Date Time Interrogation Session [id number] CV DEVICE CHECK Type Interrogation Session Remote CV DEVICE CHECK Implantable Pulse Generator Mechanical Cad Designer MDT CV DEVICE CHECK Implantable Pulse Generator Type HONING JOB SETTER-D CV DEVICE CHECK Implantable Pulse Generator Model Claria MRI Quad CRTD [id number] CV DEVICE CHECK Implantable Pulse Generator Serial Number [id number] CV DEVICE CHECK Implantable Pulse Generator Implant Date 20230822 CV DEVICE CHECK Battery Remaining Longevity 86.0 CV DEVICE CHECK Battery Voltage 3.000 CV D EVICE CHECK Battery WARP KNITTER HELPER Trigger 2.727 CV DEVICE CHECK Battery Status Middle of Service CV DEVICE CHECK Capacitor Charge Time 3.863 CV DEVICE CHECK Estuardo Statistic RA Percent Paced 0.81 CV DEVICE CHECK Estuardo Statistic RV Percent Paced 98.64 CV DEVICE CHECK HONING JOB SETTER Statistic LV Percent Paced 98.61 CV DEVICE CHECK HONING JOB SETTER Statistic HONING JOB SETTER Percent Paced 98.61 CV DEVICE CHECK Atrial Tachy Statistic AT/AF Louin Percent 100.00 CV DEVICE CHECK Lead Channel Sensing Intrinsic Amplitude 1.375 CV DEVICE CHECK Lead Channel Setting Sensing Sensitivity 0.30 CV DEVICE CHECK Lead Channel Impedance Value 399 CV DEVICE CHECK Lead Channel Setting Pacing Amplitude 2.000 CV DEVICE CHECK Lead Channel Setting Pacing Pulse Width 0.4 CV DEVICE CHECK Lead Channel Sensing Intrinsic Amplitude 18.375 CV DEVICE CHECK Lead Channel Setting Sensing Sensitivity 0.30 CV DEVICE CHECK Lead Channel Impedance Value 399 CV DEVICE CHECK Lead Channel Pacing Threshold Amplitude 0.625 CV DEVICE CHECK Lead Channel Pacing Threshold Pulse Width 0.4 CV DEVICE CHECK Lead Channel RV Pacing Threshold Date 2024-08-17 CV DEVICE CHECK Lead Channel Setting Pacing Amplitude 2.000 CV DEVICE CHECK Lead Channel Setting Pacing Pulse Width 0.4 CV DEVICE CHECK Lead Channel Impedance Value 646 CV DEVICE CHECK Lead Channel Pacing Threshold Amplitude 0.750 CV DEVICE CHECK Lead Channel Pacing Threshold Pulse Width 0.4 CV DEVICE CHECK Lead Channel Pacing Threshold Date 2024-08-17 CV DEVICE CHECK Lead Channel Setting Pacing Amplitude 1.250 CV DEVICE CHECK Lead Channel Setting Pacing Pulse Width 0.4 CV DEVICE CHECK Estuardo Setting Mode (NBG Code) DDDR CV DEVICE CHECK Ventricular chambers paced during HONING JOB SETTER pacing. BiV CV DEVICE CHECK Estuardo Setting Lower Rate Limit 60 CV DEVICE CHECK Estuardo Setting AT Mode Switch Rate 171 CV DEVICE CHECK Estuardo Setting Maximum Tracking Rate 130 CV DEVICE CHECK Estuardo Setting Maximum Sensor Rate 130 CV DEVICE CHECK Estuardo Setting PAV Delay 130 CV DEVICE CHECK Estuardo Setting YASMIN Delay 100 CV DEVICE CHECK HONING JOB SETTER LV-RV Delay 60 CV D EVICE CHECK Therapy Statistic Recent Shocks Delivered 0 CV DEVICE CHECK Therapy Statistic Recent Shocks Aborted 0 CV DEVICE CHECK Therapy Statistic Recent ATP Delivered 0 CV DEVICE CHECK RV HV Impedance 62 CV D EVICE CHECK Zone Setting Type Category AT/AF CV DEVICE CHECK Rate 171 CV DEVICE CHECK Therapies All Rx Off CV DEVICE CHECK Zone Setting Status Monitor CV DEVICE CHECK Zone ID 2 CV DEVICE CHECK Zone Setting Type Category VF CV DEVICE CHECK Rate 200 CV DEVICE CHECK Therapies ATP During Charging, 35Jx6 CV DEVICE CHECK Zone Setting Status On CV DEVICE CHECK Zone ID 3 CV DEVICE CHECK Zone Setting Type Category VT CV DEVICE CHECK Zone Setting Status Off CV DEVICE CHECK Zone ID 4 CV DEVICE CHECK Zone Setting Type Category VT CV DEVICE CHECK Zone Setting Status Off CV DEVICE CHECK Zone ID 5 CV DEVICE CHECK Zone Setting Type Category VT CV DEVICE CHECK Rate 150 CV DEVICE CHECK Rate 167 CV DEVICE CHECK Zone Setting Status ENABLED CV DEVICE CHECK Zone ID 6 CV DEVICE CHECK Date of Service 2024-09-25 CV DEVICE CHECK Anatomical Region Laterality Modality Device Interroga tion 08/18/2024 12:1 7 AM EST Impressions 08/22/2024 10:28 AM EST Heart Failure Diagnostic: Stable * Heart failure diagnostics assessed through the device * Status: Stable * No overt HF present Narrative Procedure Note Jean-Paul Amador MD - 08/22/2024 IMPRESSION: Heart Failure Diagnostic: Stable * Heart failure diagnostics assessed through the device * Status: Stable * No overt HF present Jean-Paul Amador MD CV IMPLANTABLE CARDIAC DEVICE PROCEDURES Final Result * FLACO COMPLETE (08/01/2024 9:55 AM EST) BSA 1.84 m2 CV PACS Aortic Sinus Valsalva 3.3 cm CV PACS Ascending Aorta 3.6 cm CV PACS Ascending Aorta Index 1.99 cm/m2 CV PACS Anatomical Region Laterality Modality X-Ray Angiograph y Narrative 08/02/2024 11:57 AM EST ?No vegetations seen on the cardiac valves or cardiac wires. ?Systolic function is moderately to severely decreased with an ejection fraction of ~30%. Global LV hypokinesis is present. ?LV global hypokinesis is present. ?Right ventricle cavity is normal. Right ventricular systolic function is normal. ?Mitral valve demonstrates moderate regurgitation with a centrally directed jet. ?See remainder of the report for additional findings. Left Ventricle Systolic function is moderately to severely decreased with an ejection fraction of ~30%. Global LV hypokinesis is present. Right Ventricle Right ventricle cavity appears normal. Systolic function is normal. A pacer wire is present in the right ventricle. No vegetation seen. Left Atrium There is no thrombus in the cavity or appendage. Right Atrium There is no thrombus in the right atrial cavity. There is no mass in the right atrial cavity. A pacer wire is present in the right atrium. No vegetation is seen. Mitral Valve The leaflets are mildly thickened. There is moderate regurgitation with a centrally directed jet. There is no evidence of mitral valve stenosis. There is no vegetation on the mitral valve. Tricuspid Valve Tricuspid valve structure is normal. There is mild regurgitation. There is no evidence of tricuspid valve stenosis. There is no vegetation on the tricuspid valve. Aortic Valve The aortic valve is trileaflet. There is trace regurgitation. There is no evidence of aortic valve stenosis. There is no vegetation present on the aortic valve. Pulmonic Valve There is trace pulmonic valve regurgitation. There is no evidence of pulmonic valve stenosis. No vegetation present on the pulmonic valve. Ascending Aorta The aorta appears normal in size. Study Details Overall the study quality was adequate. Cardiac history: PPM/AICD implant. The procedure, risks and alternatives were explained. Informed consent was obtained. The probe was inserted by the pediatric psychiatrist. There was no probe insertion difficulty. Moderate sedation was administered by anesthesia. The patient had no complications. Estimated blood loss: no blood loss. No specimens were collected. us To Carrero MD CV ECHO PROCEDURES Final Result * IR Remove Tunneled CVAD w Subq Port or Pump (08/01/2024 9:04 AM EST) Anatomical Region Laterality Modality N/A Interventional R adiology 08/01/2024 9:18 AM EST Impressions 08/01/2024 9:19 AM EST Impression: Removal of right ??anterior chest wall port. ?? COMPLICATIONS: None. ?? PROCEDURE: Informed written consent was obtained. ??The patient was brought to the angiography suite and placed in supine position. ??The skin overlying the port in the right upper chest wall ??was prepped and draped in the usual and sterile fashion. ??Maximal sterile barrier technique was utilized. ?? A linear incision was made with a #15 blade scalpel. ??The port tubing was the mobilized with blunt dissection. ??After disruption of the scar and fibrin sheath, the tubing was removed completely. ??The port reservoir was then dissected free from the subcutaneous tissues. ??Hemostasis was achieved with manual compression. ?? The fascial layer was then closed utilizing 2-0 Vicryl ??sutures. ??Subcuticular closure was then performed utilizing 4-0 Vicryl. ??Dermabond was the used on the skin and overlying steri-strips were placed to further reduce wound tension. Wound margins were well approximated. ??A sterile Tegaderm dressing was then applied. ?? The patient tolerated the procedure well with minimal blood loss, less than 2 mL. ??The tip of the catheter was sent for culture. Patient was then discharged to the outpatient recovery unit in stable condition. ?? -------- FINAL REPORT -------- Dictated By: Valente Mnok Dictated Date: 08/01/2024 09:18 ET Assigned Physician: Valente Monk Reviewed and Electronically Signed By: Valente Monk Signed Date: 08/01/2024 09:19 ET Workstation ID: [id number] Transcribed By: Self Edit Transcribed Date: 08/01/2024 09:18 ET Narrative 08/01/2024 9:19 AM EST Port removal INDICATION: Septicemia. COMPARISON: Placement 05/21/2022 Encounter: Initial. Interventionalists: Valente Monk M.D. Acuity: Chronic ?? MEDICATIONS: LIDOCAINE Procedure Note Valente Monk MD - 08/01/2024 Port removal INDICATION: Septicemia. COMPARISON: Placement 05/21/2022 Encounter: Initial. Interventionalists: Valente Monk M.D. Acuity: Chronic MEDICATIONS: LIDOCAINE IMPRESSION: Impression: Removal of right anterior chest wall port. COMPLICATIONS: None. PROCEDURE: Informed written consent was obtained. The patient was broughtto the angiography suite and placed in supine position. The skinoverlying the port in the right upper chest wall was prepped and drapedin the usual and sterile fashion. Maximal sterile barrier technique wasutilized. A linear incision was made with a #15 blade scalpel. The port tubing wasthe mobilized with blunt dissection. After disruption of the scar andfibrin sheath, the tubing was removed completely. The port reservoir wasthen dissected free from the subcutaneous tissues. Hemostasis wasachieved with manual compression. The fascial layer was then closed utilizing 2-0 Vicryl sutures.Subcuticular closure was then performed utilizing 4-0 Vicryl. Dermabondwas the used on the skin and overlying steri-strips were placed to furtherreduce wound tension. Wound margins were well approximated. A sterileTegaderm dressing was then applied. The patient tolerated the procedure well with minimal blood loss, lessthan 2 mL. The tip of the catheter was sent for culture. Patient was then discharged to the outpatient recovery unit in stablecondition. -------- FINAL REPORT -------- Dictated By: Valente Monk Dictated Date: 08/01/2024 09:18 ET Assigned Physician: Valente Monk Reviewed and Electronically Signed By: Valente Monk Signed Date: 08/01/2024 09:19 ET Workstation ID: [id number] Transcribed By: Self Edit Transcribed Date: 08/01/2024 09:18 ET Paulette CHAPPELL IMG IR PROCEDURES Final Result * Culture IV catheter (08/01/2024 8:57 AM EST) Culture, Catheter Tip No growth at 3 days 08/04/2024 8:53 AM EST [facility] Catheter Tip Topography unknown / Unknown 08/01/2024 8:57 AM EST 08/01/2024 9:25 AM EST Valente Monk MD LAB MICROBIOLOGY - GENERAL ORDER [place] Final Result [facility] [address] [place] [address], [place] [phone] * (ABNORMAL) TRANSTHORACIC ECHOCARDIOGRAM (TTE) COMPLETE W/ CONTRAST (07/31/2024 8:35 AM EST) LV EDV (A2C) 244 mL CV PACS LV EDV (A4C) 281 mL CV PACS LV Diastolic Volume (BP) 269(A) 62 - 150 mL CV PACS LV ESV (A2C) 172 mL CV PACS LV ESV (A4C) 169 mL CV PACS LV Systolic Volume (BP) 174(A) 21 - 61 mL CV PACS IVSD 1.3(A) 0.6 - 1.0 cm CV PACS LVIDD 6.5(A) 4.2 - 5.8 cm CV PACS LVIDS 6.6(A) 2.5 - 4.0 cm CV PACS LVOT Diameter 2.3 cm CV PACS LVOT Mean Rj 0.4 m/s CV PACS LVOT Mean Grad 1 mmHg CV PACS LVOT Peak VTI 11.1 cm CV PACS LVOT Peak Rj 0.7 m/s CV PACS LVOT Peak Gradient 2 mmHg CV PACS LVPWD 1.1(A) 0.6 - 1.0 cm CV PACS Ejection Fraction (A2C) 30 % CV PACS Ejection Fraction (A4C) 40 % CV PACS Ejection Fraction (BP) 35 % CV PACS LVOT Area 4.2 cm2 CV PACS LVOT Stroke Volume 46 mL CV PACS Left Atrium Minor [place] 6.8 cm CV PACS Left Atrium Major [place] 7.3 cm CV PACS LA Area Sys (A2C) 25 cm2 CV PACS LA Area Sys (A4C) 29 cm2 CV PACS LA Volume (BP) 86 mL CV PACS RA Area 18.5 cm2 CV PACS RA 2D Volume 54 mL CV PACS Aortic Sinus Valsalva 3.4 cm CV PACS Ascending Aorta 3.8 cm CV PACS MR PISA Nyquist Rj 35 cm/s CV PACS PISA MR Radius 0.80 cm CV PACS MR VTI 187.0 cm CV PACS MR PISA Max Velocity 5.6 m/s CV PACS MR Peak Gradient 127 mmHg CV PACS MV Deceleration [place] 8.5 m/s2 CV PACS E Wave Deceleration Time 116(A) 119 - 242 ms CV PACS MV PHT 34 ms CV PACS MV Peak A Rj 0.37 m/s CV PACS MV Peak E Rj 1.01 m/s CV PACS PISA MR EROA 0.25 cm2 CV PACS MV Area PHT 6.5 cm2 CV PACS PISA Regurgitant Volume 47 mL CV PACS RV Diastolic Basal Dimension 3.9 2.5 - 4.1 cm CV PACS RV S' 8 cm/s CV PACS TAPSE 18 mm CV PACS TR Peak Velocity 3.56 m/s CV PACS TR Peak Gradient 51 mmHg CV PACS LV ESV Index (A4C) 93 mL/m2 CV PACS LV EDV Index (A4C) 155 mL/m2 CV PACS LVOT Stroke Index 25 mL/m2 CV PACS Relative Wall Thickness ratio 0.34 CV PACS FS -2 % CV PACS LV Mass 2D 359 g CV PACS Ascending Aorta Index 2.10 cm/m2 CV PACS LVOT flow 166 mL/s CV PACS RA 2D Volume Index 30 mL/m2 CV PACS LVIDD Index 3.59 cm/m2 CV PACS LVIDS Index 3.65 cm/m2 CV PACS E/A Ratio 2.7 CV PACS LV Systolic Volume Index (BP) 96 mL/m2 CV PACS LV Diastolic Volume Index (BP) 149 mL/m2 CV PACS LA Volume Index (BP) 48 mL/m2 CV PACS LV Mass Index 2D 198 g/m2 CV PACS LV EDV Index (A2C) 135 mL/m2 CV PACS LV ESV Index (A2C) 95 mL/m2 CV PACS BSA 1.84 m2 CV PACS Right Ventricular Peak Systolic Pressure 59 mmHg CV PACS Est. RA Pressure 8 mmHg CV PACS Anatomical Region Laterality Modality Ultrasound Narrative 07/31/2024 9:18 AM EST ?Global hypokinesis with near akinesis in the basilar half of the inferior wall and adjacent lateral wall. ??Global hypokinesis elsewhere. ?? EF in the range of 30 to 35%. ?Left??Atrium: Left atrium cavity is severely dilated. ?Right ventricle cavity is normal. Right ventricular systolic function is normal. ?Mitral valve demonstrates moderate to severe regurgitation. ?Tricuspid??Valve: Estimated RA pressure is 8 mmHg. The RVSP is estimated at 59 mmHg. ??There is moderate TR. ??Pacing wires are visible in the right-sided chambers. ?The findings are quite similar to May 03, 2024. Left Ventricle Left ventricle cavity is severely dilated. There is mild hypertrophy. Systolic function is moderately decreased with an ejection fraction of 30-35%. The basilar one half of the inferior and adjacent lateral wall are akinetic. These cooper are thinned. The remainder of the ventricle is hypokinetic. There is grade III (severe) diastolic dysfunction and elevated left atrial pressure. Right Ventricle Right ventricle cavity appears normal. Systolic function is normal. A pacer wire is present in the right ventricle. Left Atrium Left atrium cavity is severely dilated. Right Atrium Right atrium cavity is normal. A pacer wire is present in the right atrium. IVC/SVC Inferior vena cava is dilated. Mitral Valve The leaflets are mildly thickened. There is mild annular calcification. There is moderate to severe regurgitation. The Pisa radius is in the range of 0.9 cm. The effective regurgitant orifice 0.32 and the volume near 60 mL per beat. There is no evidence of mitral valve stenosis. Tricuspid Valve The leaflets exhibit normal excursion. There is mild regurgitation. There is no evidence of tricuspid valve stenosis. Estimated RA pressure is 8 mmHg. The RVSP is estimated at 59 mmHg. Aortic Valve The aortic valve is trileaflet. The leaflets are mildly thickened. There is no regurgitation or stenosis. Pulmonic Valve Pulmonic valve structure is normal. There is no regurgitation or stenosis. Ascending Aorta The aorta appears normal in size. Pericardium Pericardium appears normal. There is no pericardial effusion. Study Details Overall the study quality was adequate. Definity contrast was given to enhance imaging. us Avinash Jason MD CV ECHO PROCEDURES Final Resu lt * Magnesium (07/31/2024 5:23 AM EST) Only the most recent of3 resultswithin the time period is included. Magnesium 2.2 1.9 - 2.6 mg/dL LAB CHEMISTRY METHOD 07/31/2024 7:27 AM EST [facility]) [facility] Blood Venous blood specimen / Unknown Venipuncture / Unknown 07/31/2024 5:23 AM EST 07/31/2024 6:47 AM EST us Sara CHAPPELL LAB BLOOD ORDERABLES Fi nal Result [facility] [address] [place] [address], [place] [phone] * (ABNORMAL) Comprehensive metabolic panel (07/31/2024 5:23 AM EST) Sodium 138 133 - 145 mmol/L LAB CHEMISTRY METHOD 07/31/2024 7:27 AM [facility] Potassium 4.8 3.5 - 5.5 mmol/L LAB CHEMISTRY METHOD 07/31/2024 7:27 AM [facility] Chloride 108 96 - 110 mmol/L LAB CHEMISTRY METHOD 07/31/2024 7:27 AM [facility] CO2 25 21 - 32 mmol/L LAB CHEMISTRY METHOD 07/31/2024 7:27 AM [facility] Anion Gap 5 3 - 11 LAB CHEMISTRY METHOD 07/31/2024 7:27 AM [facility] Glucose 104(H) 70 - 100 mg/dL LAB CHEMISTRY METHOD 07/31/2024 7:27 AM [facility] BUN 43(H) 5 - 25 mg/dL LAB CHEMISTRY METHOD 07/31/2024 7:27 AM [facility] Creatinine 1.85(H) 0.70 - 1.30 mg/dL LAB CHEMISTRY METHOD 07/31/2024 7:27 AM [facility] eGFR 38(L) >=60 mL/min/1. 73m2 LAB CHEMISTRY METHOD 07/31/2024 7:27 AM [facility] Comment:Calculation based on the??Chronic Kidney Disease Epidemiology Collaboration (CKD-EPI) equation refit??without adjustment for race. BUN/Creatinine Ratio 23.2 LAB CHEMISTRY METHOD 07/31/2024 7:27 AM [facility] Calcium 8.7 8.5 - 10.5 mg/dL LAB CHEMISTRY METHOD 07/31/2024 7:27 AM [facility] AST (SGOT) 28 10 - 42 unit/L LAB CHEMISTRY METHOD 07/31/2024 7:27 AM [facility] ALT (SGPT) 17 10 - 60 unit/L LAB CHEMISTRY METHOD 07/31/2024 7:27 AM [facility] Alkaline Phosphatase 100 42 - 121 unit/L LAB CHEMISTRY METHOD 07/31/2024 7:27 AM [facility] Total Protein 6.2 6.0 - 8.0 g/dL LAB CHEMISTRY METHOD 07/31/2024 7:27 AM [facility] Albumin 3.1(L) 3.2 - 5.0 g/dL LAB CHEMISTRY METHOD 07/31/2024 7:27 AM [facility] Total Bilirubin 0.5 0.0 - 1.4 mg/dL LAB CHEMISTRY METHOD 07/31/2024 7:27 AM [facility] Blood Venous blood specimen / Unknown Venipuncture / Unknown 07/31/2024 5:23 AM EST 07/31/2024 6:47 AM EST Sara CHAPPELL LAB BLOOD ORDERABLES Fi nal Result Performing Organization Address City/[facility]/ZIP Co de Phone Number [facility] [address] [place] [address], [place] [phone] * Lactate, with reflex (07/30/2024 1:52 PM EST) LACTIC ACID 1.0 0.4 - 2.0 mmol/L LAB CHEMISTRY METHOD 07/30/2024 2:32 PM EST [facility] Blood Venous blood specimen / Unknown Venipuncture / Unknown 07/30/2024 1:52 PM EST 07/30/2024 1:59 PM EST Cesar Schumacher MD LAB BLOOD ORDERABLES Janeth l Result Performing Organization Address City/[facility]/ZIP Co de Phone Number [facility] [address] [place] [address], [place] [phone] * Culture blood (07/30/2024 1:52 PM EST) Only the most recent of4 resultswithin the time period is included. Culture, Blood No growth at 5 days LAB MICROBIOLOGY METHOD 08/04/2024 3:01 PM EST [facility] Blood Venous blood specimen / Unknown Venipuncture / Unknown 07/30/2024 1:52 PM EST 07/30/2024 1:58 PM EST Cesar Schumacher MD LAB MICROBIOLOGY - GENERA L ORDERABLES Final Result [facility] [address] [place] [address], [place] [phone] * (ABNORMAL) Culture body fluid with gram stain (07/26/2024 12:53 PM EST) Only the most recent of3 resultswithin the time period is included. Fluid Culture Methicillin-Sensiti ve Staphylococcus aureus(A) NEHA 07/29/2024 8:04 AM [facility] Comment: Negative for PBP2a - indicates susceptible to Oxacillin The organism value for this result has been updated. These results have been appended to the previously preliminary verified report. Edited result: Previously reported as Staphylococcus aureus on 07/27/2024 at 1314 EST. Gram Stain Result Few Polymorphonuclear leukocytes(A) 07/29/2024 8:04 AM [facility] Gram Stain Result No epithelial cells seen(A) 07/29/2024 8:04 AM [facility] Gram Stain Result Rare Gram positive cocci in pairs(A) 07/29/2024 8:04 AM [facility] Synovial Fluid Structure of right wrist region / Unknown 07/26/2024 12:53 PM EST 07/26/2024 1:02 PM EST Narrative Organism Antibiotic Method Susceptibility Methicillin-Sensitive Staphylococcus aureus Benzylpenicillin NEHA >=0.5 ug/ml: Resistant Methicillin-Sensitive Staphylococcus aureus Oxacillin NEHA 0.5 ug/ml: Susceptible Methicillin-Sensitive Staphylococcus aureus Gentamicin NEHA <=0.5 ug/ml: Susceptible Methicillin-Sensitive Staphylococcus aureus Ciprofloxacin NEHA <=0.5 ug/ml: Susceptible Methicillin-Sensitive Staphylococcus aureus Levofloxacin NEHA <=0.12 ug/ml: Susceptible Methicillin-Sensitive Staphylococcus aureus Moxifloxacin NEHA <=0.25 ug/ml: Susceptible Methicillin-Sensitive Staphylococcus aureus Erythromycin NEHA <=0.25 ug/ml: Susceptible Methicillin-Sensitive Staphylococcus aureus Clindamycin NEHA <=0.25 ug/ml: Susceptible Methicillin-Sensitive Staphylococcus aureus Quinupristin/Dalfopristin NEHA <=0.25 ug/ml: Susceptible Methicillin-Sensitive Staphylococcus aureus Linezolid NEHA 2 ug/ml: Susceptible Methicillin-Sensitive Staphylococcus aureus Vancomycin NEHA <=0.5 ug/ml: Susceptible Methicillin-Sensitive Staphylococcus aureus Tetracycline NEHA <=1 ug/ml: Susceptible Methicillin-Sensitive Staphylococcus aureus Rifampin NEHA <=0.5 ug/ml: Susceptible Methicillin-Sensitive Staphylococcus aureus Trimethoprim/Sulfamethoxazo le NEHA <=10 ug/ml: Susceptible us Octavio Roy MD LAB MICROBIOLOGY - GENERAL OR DERABLES Final Result [facility] ([facility]) [facility] [address] [place] [address], * TH AN NERVE BLOCK SUPRACLAVICULAR (CHARGE), TH AN NERVE BLOCK SUPRACLAVICULAR (NO CHARGE) (07/26/2024 12:07 PM EST) Earl Kellogg DO - 07/26/2024 12:07 PM EST Earl Garcia DO ? 07/26/2024 12:35 PM Peripheral Block Patient location during procedure: post-op Start time: 07/26/2024 12:07 PM End time: 07/26/2024 12:14 PM Reason for block: post-op pain management Staffing Performed: anesthesiologist Anesthesiologist: Earl Garcia DO Preanesthetic Checklist Completed: patient identified, IV checked, site marked, risks and benefits discussed, surgical consent, monitors and equipment checked, pre-op evaluation and timeout performed Peripheral Block Patient position: sitting Prep: ChloraPrep Patient monitoring: heart rate, manager cardiac and continuous pulse ox Block type: supraclavicular Laterality: right Injection technique: single-shot Guidance: ultrasound guided Needle Needle gauge: 20 G Needle length: 10 cm Needle localization: ultrasound guidance Assessment Injection assessment: negative aspiration for heme, no paresthesia on injection, incremental injection with negative aspiration q 5ml and local visualized surrounding nerve on ultrasound Paresthesia pain: none Heart rate change: no Slow fractionated injection: yes Additional Notes Right supraclavicular nerve block done under sterile condictions with ultrasound. Area prepped with chloraprep. Pt sedated per anesthesia record. Relevant anatomy identified with ultrasound. Block needle placed. 16 ml of 2% lidocaine was injected in 3 ml increments surrounding the brachial plexus in the supraclavicular area. Negative aspiration prior to each injection. Patient tolerated procedure well. us Earl Garcia DO ANESTHESIA ORDERABLES Edited Re sult - Final * Phosphorus (07/26/2024 6:26 AM EST) [facility] Phosphorus 4.3 2.5 - 4.5 mg/dL LAB CHEMISTRY METHOD 07/26/2024 7:33 AM EST [facility] Blood Venous blood specimen / Unknown Venipuncture / Unknown 07/26/2024 6:26 AM EST 07/26/2024 6:50 AM EST us Naun Cortez MD LAB BLOOD ORDERABLES Fi nal Result Performing Organization Address [facility] Co de Phone Number [facility] [address] [place] [address], * MRSA molecular study (07/25/2024 8:42 AM EST) [facility] MRSA Screen PCR Not Detected Not Detected LAB MICROBIOLOGY METHOD 07/25/2024 10:56 AM EST [facility] Swab Both anterior nares / Unknown Non-blood Collection / Unknown 07/25/2024 8:42 AM EST 07/25/2024 9:37 AM EST us Naun Cortez MD LAB MICROBIOLOGY - GENE RAL ORDERABLES Final Result [facility] ([facility]) [facility] [address] [place] [address], [place] [phone] * XR Wrist 3+ Views Right (07/25/2024 12:20 AM EST) Anatomical Region Laterality Modality Upper Extremities, Wrist Right Radiogr aphic Imaging 07/25/2024 9:32 AM EST Impressions 07/25/2024 9:33 AM EST FINDINGS/IMPRESSION: No acute fracture or dislocation. ??Soft tissue swelling around the wrist and extending into the hand. ??Degenerative changes seen at the 1st CMC and triscaphe articulations. -------- FINAL REPORT -------- Dictated By: BRIAN TIERNEY Dictated Date: 07/25/2024 09:32 ET Assigned Physician: BRIAN TIERNEY Reviewed and Electronically Signed By: BRIAN TIERNEY Signed Date: 07/25/2024 09:33 ET Workstation ID: [id number] Transcribed By: Self Edit Transcribed Date: 07/25/2024 09:32 ET Narrative 07/25/2024 9:33 AM EST XR WRIST 3+ VIEWS RIGHT INDICATION: ??Pain TECHNIQUE: XR WRIST 3+ VIEWS RIGHT COMPARISON: No priors available. Procedure Note Brian Tierney MD - 07/25/2024 XR WRIST 3+ VIEWS RIGHT INDICATION: Pain TECHNIQUE: XR WRIST 3+ VIEWS RIGHT COMPARISON: No priors available. IMPRESSION: FINDINGS/IMPRESSION: No acute fracture or dislocation. Soft tissueswelling around the wrist and extending into the hand. Degenerativechanges seen at the 1st CMC and triscaphe articulations. -------- FINAL REPORT -------- Dictated By: BRIAN TIERNEY Dictated Date: 07/25/2024 09:32 ET Assigned Physician: BRIAN TIERNEY Reviewed and Electronically Signed By: BRIAN TIERNEY Signed Date: 07/25/2024 09:33 ET Workstation ID: [id number] Transcribed By: Self Edit Transcribed Date: 07/25/2024 09:32 ET us Cesar Schumacher MD IMG XR PROCEDURES Final R esult * (ABNORMAL) Blood culture pathogens molecular study (07/24/2024 11:20 PM EST) [facility] Staphylococcus aureus Detected (A) Not Detected LAB MICROBIOLOGY METHOD 07/28/2024 10:10 AM EST [facility] Blood Venous blood specimen / Unknown Venipuncture / Unknown 07/24/2024 11:20 PM EST 07/24/2024 11:38 PM EST Luis Cage MD LAB MICROBIOLOGY - GENERAL ORD ERABLES Final Result Performing Organization Address City/[facility]/ZIP Co de Phone Number [facility] [address] [place] [address], [place] [phone] * (ABNORMAL) Crystal identification, body fluid (07/24/2024 7:47 PM EST) [facility] Crystals, Fluid Calcium pyrophosphate dihydrate(A) No diagnostic crystals seen 07/24/2024 10:46 PM EST [facility] Synovial Fluid Structure of right wrist region / Unknown 07/24/2024 7:47 PM EST 07/24/2024 8:15 PM EST Cesar Schumacher MD LAB BODY FLUIDS AND STOOL S ORDERABLES Final Result Performing Organization Address [facility]/ZIP Co de Phone Number [facility] [address] [place] [address], [place] [phone] * (ABNORMAL) Sedimentation rate (07/24/2024 4:06 PM EST) [facility] Sed Rate 26(H) 0 - 20 mm/hr LAB HEMETOLOGY METHOD 07/24/2024 5:36 PM EST [facility] Blood Venous blood specimen / Unknown Venipuncture / Unknown 07/24/2024 4:06 PM EST 07/24/2024 4:14 PM EST Earl Nickerson MD LAB BLOOD ORDERABLES Final R esult Performing Organization Address [facility]/ZIP Co de Phone Number [facility] [address] [place] [address], [place] [phone] * (ABNORMAL) C-reactive protein (07/24/2024 4:06 PM EST) C-Reactive Protein 21.00(H) <=0.50 mg/dL LAB CHEMISTRY METHOD 07/24/2024 5:45 PM EST [facility] Blood Venous blood specimen / Unknown Venipuncture / Unknown 07/24/2024 4:06 PM EST 07/24/2024 4:14 PM EST Earl Nickerson MD LAB BLOOD ORDERABLES Final R esult Performing Organization Address [facility] Co de Phone Number [facility] [address] [place] [address], [place] [phone] from Last 3 Months Insurance MEDICARE [facility] Advance Directives Documents on File Type Date Recorded Patient Sample Dye Mixer Expl anation Advance Directives and Living Will 07/31/2024 10:35 AM Greer Jenkins Health Care Proxy Health Care Decision (hx) 05/17/2022 AD WONG DIRECTIVE Health Care Decision (hx) 05/17/2022 AD WONG DIRECTIVE Health Care Decision (hx) 05/17/2022 AD WONG DIRECTIVE Health Care Decision (hx) 05/17/2022 AD WONG DIRECTIVE Health Care Decision (hx) 05/17/2022 AD WONG DIRECTIVE Health Care Decision (hx) 05/17/2022 AD WONG DIRECTIVE Health Care Decision (hx) 05/17/2022 AD WONG DIRECTIVE Health Care Decision (hx) 05/17/2022 AD WONG DIRECTIVE Health Care Decision (hx) 05/17/2022 AD WONG DIRECTIVE Health Care Decision (hx) 05/17/2022 AD WONG DIRECTIVE Health Care Decision (hx) 05/17/2022 AD WONG DIRECTIVE Health Care Decision (hx) 05/17/2022 AD WONG DIRECTIVE Health Care Decision (hx) 05/17/2022 AD WONG DIRECTIVE Health Care Decision (hx) 05/17/2022 AD WONG DIRECTIVE Health Care Decision (hx) 05/17/2022 AD WONG DIRECTIVE Health Care Decision (hx) 05/17/2022 AD WONG DIRECTIVE Health Care Decision (hx) 05/17/2022 AD WONG DIRECTIVE Health Care Decision (hx) 05/17/2022 AD WONG DIRECTIVE Health Care Decision (hx) 05/17/2022 AD WONG DIRECTIVE Health Care Decision (hx) 05/17/2022 AD WONG DIRECTIVE Health Care Decision (hx) 05/17/2022 AD WONG DIRECTIVE Health Care Decision (hx) 05/17/2022 AD WONG DIRECTIVE Health Care Decision (hx) 05/17/2022 AD WONG DIRECTIVE Health Care Decision (hx) 05/17/2022 AD WONG DIRECTIVE Health Care Decision (hx) 05/17/2022 AD WONG DIRECTIVE Health Care Decision (hx) 05/17/2022 AD WONG DIRECTIVE Health Care Decision (hx) 05/17/2022 AD WONG DIRECTIVE Health Care Decision (hx) 05/17/2022 AD WONG DIRECTIVE Health Care Decision (hx) 05/17/2022 AD WONG DIRECTIVE Health Care Decision (hx) 05/17/2022 AD WONG DIRECTIVE Health Care Decision (hx) 05/17/2022 AD WONG DIRECTIVE Health Care Decision (hx) 05/17/2022 AD WONG DIRECTIVE Health Care Decision (hx) 05/17/2022 AD WONG DIRECTIVE Health Care Decision (hx) 05/17/2022 AD WONG DIRECTIVE Health Care Decision (hx) 05/17/2022 AD WONG DIRECTIVE Health Care Decision (hx) 05/17/2022 AD WONG DIRECTIVE Health Care Decision (hx) 05/17/2022 AD WONG DIRECTIVE Health Care Decision (hx) 05/17/2022 AD WONG DIRECTIVE Health Care Decision (hx) 05/17/2022 AD WONG DIRECTIVE Health Care Decision (hx) 05/17/2022 AD WONG DIRECTIVE Health Care Decision (hx) 05/17/2022 AD WONG DIRECTIVE Health Care Decision (hx) 05/17/2022 AD WONG DIRECTIVE Health Care Decision (hx) 05/17/2022 AD WONG DIRECTIVE Health Care Decision (hx) 05/17/2022 AD WONG DIRECTIVE Health Care Decision (hx) 05/17/2022 AD WONG DIRECTIVE Health Care Decision (hx) 05/17/2022 AD WONG DIRECTIVE Health Care Decision (hx) 05/17/2022 AD WONG DIRECTIVE Health Care Decision (hx) 05/17/2022 AD WONG DIRECTIVE Health Care Decision (hx) 05/17/2022 AD WONG DIRECTIVE Health Care Decision (hx) 05/17/2022 AD WONG DIRECTIVE Health Care Decision (hx) 05/17/2022 AD WONG DIRECTIVE Health Care Decision (hx) 05/17/2022 AD WONG DIRECTIVE Health Care Decision (hx) 05/17/2022 AD WONG DIRECTIVE Health Care Decision (hx) 05/17/2022 AD WONG DIRECTIVE Health Care Decision (hx) 01/26/2022 AD WONG DIRECTIVE Health Care Decision (hx) 01/26/2022 AD WONG DIRECTIVE Health Care Decision (hx) 01/26/2022 AD WONG DIRECTIVE Health Care Decision (hx) 01/26/2022 AD WONG DIRECTIVE Health Care Decision (hx) 01/26/2022 AD WONG DIRECTIVE Health Care Decision (hx) 01/26/2022 AD WONG DIRECTIVE Health Care Decision (hx) 01/26/2022 AD WONG DIRECTIVE Health Care Decision (hx) 01/26/2022 AD WONG DIRECTIVE Health Care Decision (hx) 01/26/2022 AD WONG DIRECTIVE Health Care Decision (hx) 01/26/2022 AD WONG DIRECTIVE Health Care Decision (hx) 01/26/2022 AD WONG DIRECTIVE Health Care Decision (hx) 01/26/2022 AD WONG DIRECTIVE Health Care Decision (hx) 01/26/2022 AD WONG DIRECTIVE Health Care Decision (hx) 01/26/2022 AD WONG DIRECTIVE Health Care Decision (hx) 01/26/2022 AD WONG DIRECTIVE Health Care Decision (hx) 01/26/2022 AD WONG DIRECTIVE Health Care Decision (hx) 01/26/2022 AD WONG DIRECTIVE Health Care Decision (hx) 01/26/2022 AD WONG DIRECTIVE Health Care Decision (hx) 01/26/2022 AD WONG DIRECTIVE Health Care Decision (hx) 01/26/2022 AD WONG DIRECTIVE Health Care Decision (hx) 01/26/2022 AD WONG DIRECTIVE Health Care Decision (hx) 01/26/2022 AD WONG DIRECTIVE Health Care Decision (hx) 01/26/2022 AD WONG DIRECTIVE Health Care Decision (hx) 01/26/2022 AD WONG DIRECTIVE Health Care Decision (hx) 01/26/2022 AD WONG DIRECTIVE Health Care Decision (hx) 01/26/2022 AD WONG DIRECTIVE Health Care Decision (hx) 01/26/2022 AD WONG DIRECTIVE Health Care Decision (hx) 01/26/2022 AD WONG DIRECTIVE Health Care Decision (hx) 01/26/2022 AD WONG DIRECTIVE Health Care Decision (hx) 01/26/2022 AD WONG DIRECTIVE Health Care Decision (hx) 01/26/2022 AD WONG DIRECTIVE Health Care Decision (hx) 01/26/2022 AD WONG DIRECTIVE Health Care Decision (hx) 01/26/2022 AD WONG DIRECTIVE Health Care Decision (hx) 01/26/2022 AD WONG DIRECTIVE Health Care Decision (hx) 01/26/2022 AD WONG DIRECTIVE Health Care Decision (hx) 01/26/2022 AD WONG DIRECTIVE Health Care Decision (hx) 01/26/2022 AD WONG DIRECTIVE Health Care Decision (hx) 01/26/2022 AD WONG DIRECTIVE Health Care Decision (hx) 01/26/2022 AD WONG DIRECTIVE Health Care Decision (hx) 01/26/2022 AD WONG DIRECTIVE Health Care Decision (hx) 01/26/2022 AD WONG DIRECTIVE Health Care Decision (hx) 01/26/2022 AD WONG DIRECTIVE Health Care Decision (hx) 01/26/2022 AD WONG DIRECTIVE Health Care Decision (hx) 01/26/2022 AD WONG DIRECTIVE Health Care Decision (hx) 01/26/2022 AD WONG DIRECTIVE Health Care Decision (hx) 01/26/2022 AD WONG DIRECTIVE Health Care Decision (hx) 01/26/2022 AD WONG DIRECTIVE Health Care Decision (hx) 01/26/2022 AD WONG DIRECTIVE Health Care Decision (hx) 01/26/2022 AD WONG DIRECTIVE Health Care Decision (hx) 01/26/2022 AD WONG DIRECTIVE Health Care Decision (hx) 01/26/2022 AD WONG DIRECTIVE Health Care Decision (hx) 01/26/2022 AD WONG DIRECTIVE Health Care Decision (hx) 01/26/2022 AD WONG DIRECTIVE Health Care Decision (hx) 01/26/2022 AD WONG DIRECTIVE Health Care Decision (hx) 01/26/2022 AD WONG DIRECTIVE Health Care Decision (hx) 01/26/2022 AD WONG DIRECTIVE Health Care Decision (hx) 01/26/2022 AD WONG DIRECTIVE Health Care Decision (hx) 01/26/2022 AD WONG DIRECTIVE Health Care Decision (hx) 01/26/2022 AD WONG DIRECTIVE Health Care Decision (hx) 01/26/2022 AD WONG DIRECTIVE Health Care Decision (hx) 01/26/2022 AD WONG DIRECTIVE Health Care Decision (hx) 01/26/2022 AD WONG DIRECTIVE * Full Code - Default (Latest Code Status on File) Date Activated Date Inactivated Comments 07/30/2024 5:05 PM 08/02/2024 6:25 PM This is orde r is used when code status has not been discussed with the patient, or code status is otherwise unknown/unconfirmed To update the patient's code status, place a code status order. Do not modify or discontinue any currently active code status orders. * Full Code - Default Date Activated Date Inactivated Comments 07/24/2024 8:34 PM 07/27/2024 5:31 PM This is order is used when code status has not been discussed with the patient, or code status is otherwise unknown/unconfirmed To update the patient's code status, place a code status order. Do not modify or discontinue any currently active code status orders. Healthcare Agents on File Name Relationship Healthcare Agent Relationship Communication Greer Jenkins Spouse Health Care Agent Care Teams Insulation Supervisor Relationship Specialty Start Date End Date Josette Fajardo MD [address] [place] [address] PCP - General Internal Medicine 03/31/21
--- OUTSIDE RECORDS SUMMARY | 2024-09-17 18:12 | XMS_ITS | Clinical Summary ---
Author Organization [facility] Address [address] [address] Phone Care Team Providers Care Ruling Machine Operator Name Role Phone Josette Fajardo MD Primary Care Provider [phone] Allergies Active Allergy Reactions Criticality Noted Date Comments Sulfamethoxazole 07/30/2021 Sulfamethoxazole-Trimethoprim Hives 2017 Trimethoprim 07/30/2021 Medications fluticasone (FLONASE) 50 MCG/ACT nasal spray 2 sprays each nostril twice daily x 1 week then once daily as needed for Allergies or rhinitis 2 Active cetirizine (ZyrTEC) 10 MG tablet Take 1 tablet by mouth 1 (one) time each day 2 Active atorvastatin (LIPITOR) 80 MG tablet Take 80 mg by mouth 1 (one) time each day Active LORazepam (ATIVAN) 1 MG tablet Take 1 mg by mouth 1 (one) time each day if needed for anxiety Active sertraline (ZOLOFT) 100 MG tablet Take 200 mg by mouth 1 (one) time each day Active aspirin (ST JEAN-PIERRE) 81 MG EC tablet Take 81 mg by mouth 1 (one) time each day Active apixaban (Eliquis) 5 MG tablet Take 5 mg by mouth in the morning and 5 mg in the evening. Active furosemide (LASIX) 40 MG tabletIndicatio ns:Edema,Renal Disease Take 40 mg by mouth 1 (one) time each day Active metoprolol tartrate (LOPRESSOR) 100 MG tablet Take 100 mg by mouth in the morning and 100 mg in the evening. Active ferrous sulfate (Fe Tabs) 325 (65 Fe) MG EC tabletIndicatio ns:Other iron deficiency anemia Take 1 tablet (325 mg total) by mouth in the morning. Do not crush, chew, or split.. 90 tablet 3 4 10/03/19 25 Active Active Problems Problem Noted Date Diagnosed Date Anemia in chronic kidney disease 03/28/2024 Hyperkalemia 03/28/2024 Paroxysmal atrial fibrillation 04/21/2023 Stage 3b chronic kidney disease 10/21/2022 Second degree atrioventricular block 04/02/2022 Anxiety 02/16/2022 Pain in right hip joint 02/16/2022 Primary osteoarthritis of right hip 02/16/2022 Malignant neoplasm of right renal pelvis 022 Chronic kidney disease stage 3 02/12/2022 History of nephrectomy 12/17/2021 Albuminuria 06/07/2019 Geraldo hematuria 11/08/2017 Malignant neoplastic disease 09/30/2016 Overview (02/15/2022): 07/31 TURB 09/30 TURB, BCG 12/06 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 At his last office visit with his PCP office this was controlled and closer to his normal which is 120 systolically. No changes at this time. Should this be elevated on subsequent visits would increase his amlodipine to 10 mg. 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 Continue ASA, statin. New BB in the setting of bradycardia and first-degree AV block. 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 Goal LDL is less than 70. Continue statin. Major depressive disorder 02/15/2006 Encounters Date Type Department Care Team Description 09/15/2024 Orders Only [facility] [address] [address] Niya Kimball ARNP Stage 3b chronic kidney disease (HCC); Hypertension; Anemia in chronic kidney disease; Persistent proteinuria; Hyperkalemia from Last 3 Months Immunizations Name Administration Dates Next Due Influenza Split High Dose Pr eservative Free IM 05/01/2021,04/23/2020,03/10/2019,03/29,09/06/2017 Influenza, Unspecified 05/03/2019 Pneumococcal Conjugate 13-Valent 09/30/2016 Pneumococcal Polysaccharide 08/11/2018 Tdap 05/23/2008 Family History Medical History Relation Comments Cancer Brother Cancer Father Cancer Mother Relation Status Comments Brother Father Mother Social History Tobacco Use Types Packs/Day Years Used Date Smoking Tobacco: Former Cigarettes Smokeless Tobacco: Never Tobacco Cessation:Counseling Given: Not Answered Alcohol Use Standard Drinks/Week Comments Not Currently 0 (1 standard drink = 0.6 oz pur e alcohol) Sex and Gender Information Value Date Recorded Sex Assigned at Not on file Legal Sex Male 2:05 PM EDT Gender Identity Not on file Sexual Orientation Not on file Last Filed Vital Signs Vital Sign Reading Time Taken Comments Blood Pressure 115/68 03/28/2024 10:31 AM EDT Pulse 64 03/28/2024 10:31 AM EDT Temperature - - Respiratory Rate - - Oxygen Saturation 99% 10/21/2022 2:49 PM EDT Inhaled Oxygen Concentration - - Weight 76.7 kg (169 lb) 03/28/2024 10:31 AM EDT Height - - Body Mass Index - - Plan of Treatment Upcoming Encounters Date Type Department Care Team (Late st Contact Info) Description 09/25/2024 10:00 AM EDT Office Visit [facility] [address] [phone] Niya Kimball ARNP [address] [phone] Health Maintenance Due Date Last Done Comments Colorectal Cancer Screening: Annual FOBT 1999 Colorectal Cancer Screening: Colonoscopy 1999 Colorectal Cancer Screening: Sigmoidoscopy 1999 Influenza Vaccine (#1) 2024 3, 04/29/2022, 05/01/2021, Additional history exists Pneumococcal Vaccine: 65+ Years Completed 01/31/2024, 08/11/2018, 09/30/2016 Hepatitis B Vaccine Aged Out No longe r eligible based on patient's age to complete this topic Procedures Procedure Name Priority Date/Time Associated Diagnosis Comments VITAMIN D 25 HYDROXY Routine 09/14/2024 11:32 AM EST Stage 3b chronic kidney disease (HCC) Hypertension Anemia in chronic kidney disease Persistent proteinuria Hyperkalemia PROTEIN / CREATININE RATIO, URINE Routine 09/14/2024 [...] in chronic kidney disease Persistent proteinuria Hyperkalemia from Last 3 Months Results * (ABNORMAL) Urine Protein / creatinine ratio (09/14/2024 11:32 AM EST) Protein, Ur 36 mg/dL [facility] Urine Protein/Creati nine Ratio 0.33(H) <=0.20 mg/mg creat [facility] Creatinine, Urine 109.0 mg/dL [facility] Urine (Urine, Clean Catch) 09/14/2024 11:32 AM EST 09/14/2024 2:04 PM EST us Niya LEZAMA LAB URINE ORDERABLES Final Result [facility] [address] [place] [address] * Vitamin D 25 hydroxy (09/14/2024 11:32 AM EST) [facility] Vitamin D, 25-OH, Total 38.6 30.0 - 80.0 ng/mL [facility] Blood (Blood, Venous) 09/14/2024 11:32 AM EST 09/14/2024 2:05 PM EST Niya Kimball [facility] BLOOD ORDERABLES Final Result YANIRA [facility] [address] [place] [address] * (ABNORMAL) CBC (09/14/2024 11:32 AM EST) [facility] WBC 8.1 4.8 - 10.8 K/mcL [facility] RBC 3.80(L) 4.50 - 5.50 M/[facility] Hgb 12.9(L) 13.5 - 17.5 g/dL [facility] Hematocrit 39.3(L) 42.0 - 54.0 % [facility] MCV 104.2(H) 79.0 - 98.0 FL [facility] MCH 34.2(H) 27.0 - 32.0 pcg [facility] MCHC 32.8 32.0 - 37.0 g/dL [facility] RDW 14.0 11.0 - 15.0 % [facility] Platelets 184 130 - 400 K/[facility] MPV 10.8 7.0 - 11.0 FL [facility] nRBC Count 0.0 <1.0 % [facility] NRBC Absolute 0.00 <0.10 K/[facility] Blood (Blood, Venous) 09/14/2024 11:32 AM EST 09/14/2024 2:06 PM EST [facility] BLOOD ORDERABLES Final Result Performing Organization Address [facility] Co de Phone Number [facility] [address] [place] [address] * (ABNORMAL) PTH, intact (09/14/2024 11:32 AM EST) PTH 127.2(H) 18.5 - 88.0 pcg/mL [facility] Blood (Blood, Venous) 09/14/2024 11:32 AM EST 09/14/2024 2:05 PM EST us [facility] BLOOD ORDERABLES Final Result Performing Organization Address [facility] de Phone Number [facility] [address] [place] [address] * (ABNORMAL) Renal function panel (09/14/2024 11:32 AM EST) Sodium 140 133 - 145 mmol/L [facility] Potassium 5.3 3.5 - 5.5 mmol/L [facility] Chloride 108 96 - 110 mmol/L [facility] Bicarbonate (CO2) 23 21 - 32 mmol/L [facility] Anion Gap 9 3 - 11 [facility] Glucose 102(H) 70 - 100 mg/dL [facility] BUN 43(H) 5 - 25 mg/dL [facility] Creatinine Serum 2.23(H) 0.70 - 1.30 mg/dL [facility] eGFR 30(L) >=60 mL/min/1. 73m2 [facility] Comment:Calculation based on the?Chronic Kidney Disease Epidemiology Collaboration (CKD-EPI) equation refit?without adjustment for race. BUN/Creatinine Ratio 19.3 [facility] Albumin 4.3 3.2 - 5.0 g/dL [facility] Calcium 9.9 8.5 - 10.5 mg/dL [facility] Phosphorus 3.7 2.5 - 4.5 mg/dL [facility] Blood (Blood, Venous) 09/14/2024 11:32 AM EST 09/14/2024 2:05 PM EST us Niya LEZAMA LAB BLOOD ORDERABLES Final Result [facility]IRA [facility] [address] [place] [address] from Last 3 Months Insurance [facility] Care Teams Ruling Machine Operator Relationship Specialty Start Date End Date Josette Fajardo MD PCP - General Internal Medicine 02/15/22
--- OUTSIDE RECORDS SUMMARY | 2024-09-17 18:13 | XMS_ITS | Encounter Summary ---
Author Organization [facility] Address [address] [place] [address] Care Team Providers Care Personal Banking Representative Name Role Phone Josette Fajardo MD Primary Care Provider [phone] Reason for Visit * Reason Onset Date Comments Anticoagulation 08/27/[address] Hicks Encounter Details Date Type Department Care Team (Late st Contact Info) Description 08/27/2024 Telephone Gastroenterology - [place] [address] [facility] [address] [place] [address] Jocelynn Mendoza LPN Anticoagulation (Colonoscopy on 09/27/[address] Hicks) Social History Tobacco Use Types Packs/Day Years [...] for your loved ones. For example, child welfare specialist or elderly care for an older adult? [...] documented in this encounter Progress Notes * Jocelynn Mendoza LPN - 08/28/2024 11:08 AM EST Pt notified, letter mailed. * Brandi Blanchard NP - 08/27/2024 4:25 PM EST Chart reviewed; the patient is on anticoagulation for history of paroxysmal atrial fibrillation. Nodocumented history of TIA or stroke. Yes, it is okay for the patient to stop Eliquis 48 hours priorto his procedure, but it should be resumed as soon as the patient is deemed hemodynamically stable by the provider in the postprocedural period. Please notify the patient that anytime he stops Eliquis for any period of time there is a very small risk of a cardioembolic event such as CVA as this relates to his history of paroxysmal atrial fibrillation; however, this risk is quite small at less than 1% for that timeframe that he plans to be off Eliquis. Thank you. * Jocelynn Mendoza LPN - 08/27/2024 3:16 PM EST Colonoscopy on 09/27/[address] Hicks, Can pt hold eliquis for 2 days before procedure? documented in this encounter Plan of Treatment Upcoming Encounters Date Type Department Care Team (Late st Contact Info) Description 09/18/2024 11:00 AM EST Appointment [facility] PET Scan [address] [place] [phone] 09/27/2024 3:30 PM EDT Appointment [facility] Endoscopy [address] [place] [phone] Delgado Hicks MD 175 [facility] [address] [place] [address] 10/10/2024 10:45 AM EDT Office Visit [facility] Hematology Oncology [address] [place] [phone] Luis Barrera MD [address] [place] [phone] 10/16/2024 12:40 PM EDT Office Visit [facility] [address] [facility] [address] [place] [phone] Larissa Neil NP 300 [facility] [address] [place] [phone] 02/20/2025 11:00 AM EDT Office Visit Adult Medicine [facility] [address] [place] [phone] Odessa Mtz PA [address] [place] [address] 09/12/2025 11:00 AM EST Ancillary Procedure [facility] - [address] [place] [address] documented as of this encounter Visit Diagnoses Not on filedocumented in this encounter Additional Health Concerns Assessment Noted Time PHQ-9 Depression Total Score: 1 08/19/19 25 4:23 PM EST documented as of this encounter Care Teams Personal Banking Representative Relationship Specialty Start Date End Date Josette Fajardo MD [address] [place] [address] PCP - General Internal Medicine 03/31/21 documented as of this encounter
--- OUTSIDE RECORDS SUMMARY | 2024-09-17 18:13 | XMS_ITS | Clinical Summary ---
Author Organization [facility] Address [address] [place] [address] Care Team Providers Care Rip Sawyer Name Role Phone Josette Fajardo MD Primary Care Provider Allergies Active Allergy Reactions Criticality Noted Date Comments Sulfamethoxazole-Trimethoprim Hives 2017 Medications Medication Sig Dispensed Refills Start Date End Date Status sertraline (ZOLOFT) 100 MG tablet Take 1 tablet (100 mg total) by mouth daily. 0 Active aspirin EC 81 MG tablet Take 1 tablet (81 mg total) by mouth daily. 0 Active atorvastatin (LIPITOR) tablet 80 mg Take 1 tablet (80 mg total) by mouth daily. 0 Active LORazepam (ATIVAN) 1 MG tablet Take 1 tablet (1 mg total) by mouth every 6 (six) hours as needed. 0 Active cetirizine (ZyrTEC) 10 MG tablet Take 1 tablet (10 mg total) by mouth daily. 0 Active fluticasone (FLONASE) 50 MCG/ACT nasal spray spray/apply 2 sprays in each nostril daily. 0 Active megestrol (MEGACE) suspension 40 mg/mL Take 10 mL (400 mg total) by mouth 2 (two) times a day. 240 mL 0 08/16/2022 Active Additional Information Patient not taking.Reported on 05/15/2024 furosemide (LASIX) 40 MG tablet PLEASE SEE ATTACHED FOR DETAILED DIRECTIONS 0 09/28/2022 Active metoprolol succinate (TOPROL-XL) 24 hr tablet 50 mg Take 2 tablets (100 mg total) by mouth daily. 0 09/17/2022 Active Multiple Vitamin (Multi-Vitamin Daily) TABS Take by mouth. 0 Active Eliquis 5 MG TABS tablet Take 1 tablet (5 mg total) by mouth every 12 (twelve) hours. 0 09/22/2022 Active lidocaine-prilocaine (EMLA) cream Apply topically as needed. To mediport area 1 hour prior to access 30 g 2 10/26/2022 Active losartan (COZAAR) tablet 25 mg Take 1 tablet (25 mg total) by mouth daily. 0 Active ferrous sulfate 325 (65 FE) MG tablet Take 1 tablet (325 mg total) by mouth every morning with breakfast. 0 Active Active Problems Problem Noted Date Diagnosed Date History of right hip replacement 02/01/2023 Weight loss 08/16/2022 Anemia associated with malignant neoplastic dise ase 08/16/2022 Heart block AV second degree 04/02/2022 Ureteral cancer, right 02/16/2022 Cancer Staging:Pathologic stage from 01/22/2022:Stage III(pT3, pN0, cM0) - Signed by Luis Sosa MD on 02/16/2022 H/O nephroureterectomy 02/16/2022 Overview: Right side -- papillary urothelial ca Stage 4 chronic kidney disease 02/16/2022 Anxiety 02/16/2022 Right hip pain 02/16/2022 Primary osteoarthritis of right hip 02/16/2022 Bladder cancer 11/08/2017 Abnormal urine cytology 11/08/2017 Benign enlargement of prostate 11/08/2017 Hematuria, gross 11/08/2017 Malignant neoplasm of overlapping sites of bladd er 11/08/2017 Malignant neoplasm of dome of urinary bladder Immunizations Name Administration Dates Next Due Covid-19 (Pfizer) Dilution Required 06/06/2022 Family History Medical History Relation Name Comments Cancer Other Relation Name Status Comments Other Social History Tobacco Use Types Packs/Day Years Used Date Smoking Tobacco: Former Cigarettes Q uit: 10/28/2016 Alcohol Use Standard Drinks/Week Comments No 0 (1 standard drink = 0.6 oz pur e alcohol) Sex and Gender Information Value Date Recorded Sex Assigned at Male 04/05/2022 9:33 AM EDT Gender Identity Not on file Sexual Orientation Not on file Job Start Date Occupation Industry Not on file Not on file Not on file Last Filed Vital Signs Vital Sign Reading Time Taken Comments Blood Pressure 133/78 05/15/2024 10:23 AM EDT Pulse 79 05/15/2024 10:23 AM EDT Temperature 36.4 ??C (97.6 ??F) 05/15/2024 1 0:23 AM EDT Respiratory Rate 18 05/10/2023 10:3 5 AM EDT Oxygen Saturation 100% 05/15/2024 10: 23 AM EDT Inhaled Oxygen Concentration - - Weight 77.9 kg (171 lb 12.8 oz) 024 10:23 AM EDT Height 162.6 cm (5' 4 ) 05/15/2024 10:2 3 AM EDT Body Mass Index 29.49 05/15/2024 10:23 AM EDT Plan of Treatment Health Maintenance Due Date Last Done Comments Hepatitis C Screening 1950 Depression Screening 1962 Preventative Health Evaluation 1968 Shingrix-Zoster Vaccine (1 of 2) 1969 Colon Cancer Screening (Colonoscopy) 1995 Fall Risk Assessment 2015 DTap / Tdap / Td (2 - Td or Tdap) 05/23/2018 05/23/2008 COVID-19 Vaccine ( season) 2024 07/27/2023, 06/06/2022, 05/27/2021, Additional history exists Influenza Vaccine (#1) 2024 , 04/29/2022, 05/04/2021, Additional history exists RSV Adult > 60+ Yrs or (1 - 1-dose 75+ series) 2025 Pneumococcal Vaccine Completed 02/01/2024, 08/11/2018, 09/30/2016 Hepatitis B Vaccines Aged Out No long er eligible based on patient's age to complete this topic RSV Ped < 20 months Aged Out No longe r eligible based on patient's age to complete this topic Care Teams Rip Sawyer Relationship Specialty Start Date End Date Josette Fajardo MD PCP - General Internal Medicine 02/10/22
--- OUTSIDE RECORDS SUMMARY | 2024-09-17 18:13 | XMS_ITS | Encounter Summary ---
Author Organization [facility] Address [address] [place] [address] Care Team Providers Care Compliance Administrator Name Role Phone Josette Fajardo MD Primary Care Provider Encounter Details Date Type Department Care Team ([facility] st Contact Info) Description 08/22/2024 10:40 AM EST Ancillary Procedure [facility] - [facility] [address] [facility] [address] [place] [address] Social History Tobacco Use Types Packs/Day Years [...] for your loved ones. For example, childcare teacher or elderly care for an older adult? [...] Date Author No 07/24/2024 6:53 PM Karen oDdd RN documented in this encounter Plan of Treatment Upcoming Encounters Date Type Department Care Team (Late st Contact Info) Description 09/18/2024 11:[address] [facility] PET Scan [address] [place] [address] 09/27/2024 3:[address] [facility] Endoscopy [address] [place] [address] Delgado Hicks MD [address] [address] 10/10/2024 10:45 AM EDT Office Visit [facility] Hematology Oncology [address] [place] [address] Luis Barrera MD [address] [place] [address] 10/16/2024 12:40 PM EDT Office Visit [facility] - [facility] [address] [facility] [address] [place] [phone] Larissa Neil NP [address] [phone] 02/20/2025 11:00 AM EDT Office Visit Adult Medicine [facility] [address] [place] [address] Odessa Mtz PA [address] [place] [address] 09/12/2025 11:00 AM EST Ancillary Procedure [facility] - [address] [place] [address] documented as of this encounter Procedures Procedure Name Priority Date/Time Associated Diagnosis Comments CARDIAC DEVICE CHECK- REMOTE- MURJ Routine 08/22/2024 10:38 AM EST documented in this encounter Results * Cardiac device check - Remote- MURJ (08/22/2024 10:38 AM EST) Date Time Interrogation Session [id number] CV DEVICE CHECK Type Interrogation Session Remote CV DEVICE CHECK Implantable Pulse Generator Side Seam Tender MDT CV DEVICE CHECK Implantable Pulse Generator Type MOVEMAN-D CV DEVICE CHECK Implantable Pulse Generator Model Claria MRI Quad CRTD [id number] CV DEVICE CHECK Implantable Pulse Generator Serial Number [id number] CV DEVICE CHECK Implantable Pulse Generator Implant Date [id number] CV DEVICE CHECK Battery Remaining Longevity 86.0 CV DEVICE CHECK Battery Voltage 3.000 CV D EVICE CHECK Battery GUIDE Trigger 2.727 CV DEVICE CHECK Battery Status Middle of Service CV DEVICE CHECK Capacitor Charge Time 3.863 CV DEVICE CHECK Estuardo Statistic RA Percent Paced 0.81 CV DEVICE CHECK Estuardo Statistic RV Percent Paced 98.64 CV DEVICE CHECK MOVEMAN Statistic LV Percent Paced 98.61 CV DEVICE CHECK MOVEMAN Statistic MOVEMAN Percent Paced 98.61 CV DEVICE CHECK Atrial Tachy Statistic AT/AF [place] Percent 100.00 CV DEVICE CHECK Lead Channel [...] CV DEVICE CHECK Ventricular chambers paced during MOVEMAN pacing. BiV CV DEVICE CHECK Estuardo Setting Lower Rate Limit 60 CV DEVICE CHECK Estuardo Setting AT Mode Switch Rate 171 CV DEVICE CHECK Estuardo Setting Maximum Tracking Rate 130 CV DEVICE CHECK Estuardo Setting Maximum Sensor Rate 130 CV DEVICE CHECK Estuardo Setting PAV Delay 130 CV DEVICE CHECK Estuardo Setting YASMIN Delay 100 CV DEVICE CHECK MOVEMAN LV-RV Delay 60 CV D EVICE CHECK [...] CV IMPLANTABLE CARDIAC DEVICE PROCEDURES Final Result documented in this encounter Visit Diagnoses Not on filedocumented in this encounter Additional Health Concerns Assessment Noted Time PHQ-9 Depression Total Score: 1 08/19/19 25 4:23 PM EST documented as of this encounter Care Teams Compliance Administrator Relationship Specialty Start Date End Date Josette Fajardo MD [address] [place] [address] PCP - General Internal Medicine 03/31/21 documented as of this encounter
--- OUTSIDE RECORDS SUMMARY | 2024-09-17 18:13 | XMS_ITS | Encounter Summary ---
Author Organization [facility] Address [address] [place] [address] Care Team Providers Care Graffiti Cleaner Name Role Phone Josette Fajardo MD Primary Care Provider Encounter Details Date Type Department Care Team ([facility] Contact Info) Description 08/22/2024 Telephone Infectious Disease - [place] 175 [facility] 200 [place] [address] Mahnaz Amaya MD 175 [facility] 200 [place] [address] Social History Tobacco Use Types Packs/Day Years [...] ed Within the last 3 months, yoly w many times did you visit the [...] for your loved ones. For example, child care specialist or elderly care for an older [...] documented in this encounter Progress Notes * Niya Whitaker RN - 08/22/2024 1:27 PM EST I left a message for Ruwaida keeping EOT as 08/26/2024 and okay to remove line afterwards. * Elvira Wilcox - 08/22/2024 10:23 AM EST Rossy from [facility] calling states that patient is on iv antibiotics ending 08/26/2024, asking if patient will need anymore or if iv line can be removed, would dr. Amaya like to make any changes to the dose based on the labs, please advise [phone] ext [phone] documented in this encounter Plan of Treatment Upcoming Encounters Date Type Department Care Team (Late st Contact Info) Description 09/18/2024 11:00 AM EST Appointment [facility] PET Scan [address] [place] [address] 09/27/2024 3:30 PM EDT Appointment [facility] Endoscopy [address] [place] [phone] Delgado Hicks MD 175 [facility] 200 [place] [address] 10/10/2024 10:45 AM EDT Office Visit [facility] Hematology Oncology [address] [place] [phone] Luis Barrera MD 271 [place] [phone] 10/16/2024 12:40 PM EDT Office Visit [facility] Cardiology [facility] [address] [phone] Larissa Neil NP [address] [phone] 02/20/2025 11:00 AM EDT Office Visit Adult Medicine [facility] [address] [place] [address] Odessa Mtz PA [address] [place] [address] 09/12/2025 11:00 AM EST Ancillary Procedure [facility] [address] [phone] documented as of this encounter Visit Diagnoses Not on filedocumented in this encounter Additional Health Concerns Assessment Noted Time PHQ-9 Depression Total Score: 1 08/19/19 25 4:23 PM EST documented as of this encounter Care Teams Graffiti Cleaner Relationship Specialty Start Date End Date Josette Fajardo MD [address] [place] [address] PCP - General Internal Medicine 03/31/21 documented as of this encounter
--- OUTSIDE RECORDS SUMMARY | 2024-09-17 18:13 | XMS_ITS | Encounter Summary ---
Author Organization [facility] Address [address] [place] [address] Care Team Providers Care Floor And Wall Applier Liquid Name Role Phone Josette Fajardo MD Primary Care Provider [phone] Reason for Visit * Reason Onset Date Comments Request For Order(s) 08/22/2024 [facility] order # [id number] received. Please sign, date and fax back to [phone]. Placed in provider's bin. Encounter Details Date Type Department Care Team (Late st Contact Info) Description 08/22/2024 Telephone Adult Medicine [address] [phone] Josette Fajardo MD [address] [place] [address] Request For Order(s) ([facility] Caregiver order # [id number] received. Please sign, date and fax back to [phone]. Placed in provider's bin.) Social History Tobacco Use Types Packs/Day Years [...] care for your loved ones. For example, early childhood director or elderly care for an older [...] documented in this encounter Progress Notes * Jayleen Castrejon - 08/22/2024 1:12 PM EST [facility] Caregiver order # [id number] received. Please sign, date and fax back to [phone]. Placed in provider's bin. documented in this encounter Plan of Treatment Upcoming Encounters Date Type Department Care Team (Late st Contact Info) Description 09/18/2024 11:00 AM EST Appointment [facility] PET Scan [address] [place] [phone] 09/27/2024 3:30 PM EDT Appointment [facility] Endoscopy [address] [place] [phone] Delgado Hicks MD 175 [facility] 200 [place] [address] 10/10/2024 10:45 AM EDT Office Visit [facility] Hematology Oncology [address] [place] [phone] Luis Barrera MD [address] [place] [phone] 10/16/2024 12:40 PM EDT Office Visit [facility] Cardiology [facility] 154 300 [facility] 154 [place] [phone] Larissa Niel NP 300 [facility] 154 [place] [phone] 02/20/2025 11:00 AM EDT Office Visit Adult Medicine [facility] 444 [place] [address] Odessa Mtz PA 444 [place] [address] 09/12/2025 11:00 AM EST Ancillary Procedure [facility] [address] [phone] documented as of this encounter Visit Diagnoses Not on filedocumented in this encounter Additional Health Concerns Assessment Noted Time PHQ-9 Depression Total Score: 1 08/19/19 25 4:23 PM EST documented as of this encounter Care Teams Floor And Wall Applier Liquid Relationship Specialty Start Date End Date Josette Fajardo MD [address] [place] [address] PCP - General Internal Medicine 03/31/21 documented as of this encounter
--- OUTSIDE RECORDS SUMMARY | 2024-09-17 18:13 | XMS_ITS | Encounter Summary ---
Author Organization [facility] Address [address] [place] [address] Care Team Providers Care Director Of Slot Operations Name Role Phone Josette Fajardo MD Primary Care Provider [phone] Encounter Details Date Type Department Care Team Description 04/12/2022 Social Work [facility] Oncology Services [address] [place] [address] Deacon Shi [facility] Social History Tobacco Use Types Packs/Day Years [...] file Not on file Not on file COVID-19 Exposure Response Date Recorded In the last 10 days, have yo u been in contact with someone who was confirmed or suspected to have Coronavirus/COVID-19? No / Unsure 04/12/2022 9:46 AM EDT documented as of this encounter Plan of Treatment Not on file documented as of this encounter Visit Diagnoses Not on filedocumented in this encounter Care Teams Director Of Slot Operations Relationship Specialty Start Date End Date Josette Fajardo MD PCP - General Internal Medicine 02/10/22 documented as of this encounter
--- OUTSIDE RECORDS SUMMARY | 2024-09-17 18:13 | XMS_ITS | Encounter Summary ---
Author Organization [facility] Address [address] [place] [address] Care Team Providers Care Photograph Finisher Name Role Phone Josette Fajardo MD Primary Care Provider [phone] Reason for Visit * Reason Onset Date Comments Provider Call Back 08/16/2024 Encounter Details Date Type Department Care Team ([facility] st Contact Info) Description 08/16/2024 Telephone Infectious Disease - [place] 175 [facility] 200 [place] [address] Mahnaz Amaya MD 175 [facility] 200 [place] [address] Provider Call Back Social History Tobacco Use Types Packs/Day Years [...] your loved ones. For example, child care associate teacher or elderly care for an older [...] documented in this encounter Progress Notes * June Marr - 08/16/2024 9:51 AM EST [facility] calling to speak with Dr Amaya about ceFAZolin 2 g in dextrose 5 % 50 mL IVPB Call back # [phone]. ext [phone] Patient needs delivery today 08/16. documented in this encounter Plan of Treatment Upcoming Encounters Date Type Department Care Team (Late st Contact Info) Description 09/18/2024 11:00 AM EST Appointment [facility] PET Scan [address] [place] [address] 09/27/2024 3:30 PM EDT Appointment [facility] Endoscopy [address] [place] [address] Delgado Hicks MD [address] [address] 10/10/2024 10:45 AM EDT Office Visit [facility] Hematology Oncology [address] [place] [phone] Arlette-Luis Whitaker MD 271 [place] [address] 10/16/2024 12:40 PM EDT Office Visit [facility] [address] [phone] Larissa Neil NP [address] [phone] 02/20/2025 11:00 AM EDT Office Visit Adult Medicine [facility] [address] [place] [address] Odessa Mtz PA [address] [place] [address] 09/12/2025 11:00 AM EST Ancillary Procedure [facility] Cardiology [facility] [address] [phone] documented as of this encounter Visit Diagnoses Not on filedocumented in this encounter Care Teams Photograph Finisher Relationship Specialty Start Date End Date Josette Fajardo MD [address] [place] [address] PCP - General Internal Medicine 03/31/21 documented as of this encounter
--- OUTSIDE RECORDS SUMMARY | 2024-09-17 18:13 | XMS_ITS ---
Author Organization [facility] Address [address] [place] [address] Care Team Providers Care Hog Feeder Name Role Phone Josette Fajardo MD Primary Care Provider [phone] Active Problems Problem Noted Date Diagnosed Date [...] Malignant neoplasm of dome of urinary bladder Current Oncology Plans No current plan information found. Past Plans ONCOLOGY TREATMENT Plan Name Start Date Discontinue Date Treatment Medications Discontinue Reason Plan Provider Cycles SFC BCN OP NIVOLUMAB (240mg) 03/19/2022 06/28/2023 albuterol (PROVENTIL)diphen hydrAMINE (BENADRYL)EPINEPH rinefamotidine (PF) (PEPCID)hydrocort isone (SOLU-CORTEF) IVmeperidine (DEMEROL) 25 MG/MLnivolumab (OPDIVO) infusionSaline Flush 0.9 %sodium chloride (NS) 0.9 %sodium chloride 0.9% bolus (NS) Therapy Complete Luis Sosa MD 26 of 26 cycles started Radiation Treatments * No radiation treatments are documented for this patient in [facility]. Treatments may have been administered in another system.
--- OUTSIDE RECORDS SUMMARY | 2024-09-17 18:13 | XMS_ITS | Encounter Summary ---
Author Organization [facility] Address [address] [place] [address] Care Team Providers Care Shoe Handler Name Role Phone Josette Fajardo MD Primary Care Provider [phone] Reason for Visit * Reason Onset Date Comments Request For Order(s) 08/16/2024 [facility] order # [id number] received and placed in provider's bin. Please sign, date and fax back to [phone]. Encounter Details Date Type Department Care Team (Late st Contact Info) Description 08/16/2024 Telephone Adult Medicine [facility] [address] [place] [phone] Josette Fajardo MD [address] [place] [address] Request For Order(s) ([facility] order # [id number] received and placed in provider's bin. Please sign, date and fax back to [phone].) Social History Tobacco Use Types Packs/Day Years [...] for your loved ones. For example, child nutrition manager or elderly care for an older adult? [...] encounter Progress Notes * Jayleen Castrejon - 08/16/2024 2:06 PM EST [facility] order # [id number] received and placed in provider's bin. Please sign, date and fax back to [phone]. documented in this encounter Plan of Treatment Upcoming Encounters Date Type Department Care Team (Late st Contact Info) Description 09/18/2024 11:00 AM EST Appointment [facility] PET Scan [address] [place] [phone] 09/27/2024 3:30 PM EDT Appointment [facility] Endoscopy [address] [place] [phone] Delgado Hicks MD 175 [facility] 200 [place] [address] 10/10/2024 10:45 AM EDT Office Visit [facility] Hematology Oncology [address] [place] [phone] Arlette-Luis Whitaker MD 271 [place] [phone] 10/16/2024 12:40 PM EDT Office Visit [facility] Cardiology [facility] [address] [phone] Larissa Neil NP [address] [phone] 02/20/2025 11:00 AM EDT Office Visit Adult Medicine [facility] [address] [place] [phone] Odessa Mtz PA 444 [place] [address] 09/12/2025 11:00 AM EST Ancillary Procedure [facility] Cardiology [facility] 154 300 [facility] 154 [place] [phone] documented as of this encounter Visit Diagnoses Not on filedocumented in this encounter Care Teams Shoe Handler Relationship Specialty Start Date End Date Josette Fajardo MD [address] [place] [address] PCP - General Internal Medicine 03/31/21 documented as of this encounter
--- OUTSIDE RECORDS SUMMARY | 2024-09-17 18:13 | XMS_ITS | Encounter Summary ---
[facility] [address] [place] [address] Care Team Providers Care Social Services Counselor Name Role Phone Josette Fajardo MD Primary Care Provider [phone] Encounter Details Date Type Department Care Team (Late st Contact Info) Description 08/29/2024 3:00 PM EST Office Visit Infectious Disease - [place] [address] [facility] [address] [place] [phone] Mahnaz Amaya MD [address] [facility] [address] [place] [address] MSSA bacteremia (Primary Dx); Bloodstream infection associated with central venous catheter, subsequent encounter; Staphylococcal arthritis of right wrist (CMS/HCC) Social History Tobacco Use Types Packs/Day Years [...] care for your loved ones. For example, children's nursery assistant or elderly care for an older [...] Pressure 122/76 08/29/2024 2:54 PM EST Pulse - - Temperature 36.4 ??C (97.6 ??F) 08/29/2024 2:54 PM ES T Respiratory Rate - - Oxygen Saturation 91% 08/29/2024 2:54 PM EST Inhaled Oxygen Concentration - - Weight 75.7 kg (166 lb 12.8 oz) 08/29/2024 2:54 PM EST Height - - Body Mass Index 28.63 08/22/2024 10:33 AM EST documented in this encounter Functional Status * Are you deaf or do you have serious difficulty hearing? Answer Date of Assessment Author No 07/24/2024 6:53 PM EST Karen Rajan RN * Are you blind or do [...] documented in this encounter Progress Notes * Mahnaz Amaya MD - 08/29/2024 3:00 PM EST You do not need to follow up with ID after today * Mahnaz Amaya MD - 08/29/2024 3:00 PM EST 08/29/24 Josette Fajardo MD Reason for Consultation: Follow-up for MSSA bacteremia, septic arthritis History Of Present Illness (includes Chief Complaint): Kash Jenkins is a 74 y.o. male who has a past medical history of Bladder cancer ([facility]/HCC), Depression, Hypercholesterolemia, Hypertension, and Sick sinus syndrome (CMS/HCC).. The patient is here for follow-up of his MSSA bacteremia that started off due to right wrist septicarthritis status post I&D and washout. I had previously seen him in the hospital for just a septic arthritis, or cultures grew MSSA and then he was discharged unfortunately after discharge his blood cultures turn positive for MSSA and so he is asked to come back. He has pacemaker and had a portfrom previous chemotherapy and so the port was removed and he underwent a FLACO to rule out pacemakerinfection, this came back negative. We decided to treat him with 4 weeks of IV antibiotics to end on 08/26. He just completed his antibiotics, he has been doing well, did not have any issues with antibiotic. He has also seen orthopedic surgery last week and they removed his stitches. His hand swelling has also significantly improved. Denies any active complaints currently. Past Medical History: Past Medical History: Diagnosis Date Bladder cancer (CMS/HCC) Depression DX:Depression Hypercholesterolemia DX:Hypercholesterolemia Hypertension DX:Hypertension Sick sinus syndrome (CMS/HCC) Surgical History: Past Surgical History: Procedure Laterality Date COLONOSCOPY 06/08/2015 Family History: Family History Problem Relation Name Age of Onset Cancer Other Social History: Social History Tobacco Use Smoking status: Former Current packs/day: 0.00 Types: Cigarettes Quit date: 10/28/2016 Years since quittin.8 Substance Use Topics Alcohol use: No Drug use: No Allergies: Bactrim [sulfamethoxazole-trimethoprim], Sulfamethoxazole, and Trimethoprim Home Medications: Prior to Admission medications Medication Sig Start Date End Date Taking? Authorizing Provider atorvastatin (LIPITOR) 80 mg tablet TAKE 1 TABLET BY MOUTH EVERYDAY AT BEDTIME 08/23/24 Yes Josette Fajardo MD Eliquis 5 mg tablet TAKE 1 TABLET BY MOUTH EVERY 12 HOURS 08/22/24 Yes Indra Valenzuela MD furosemide (LASIX) 40 mg tablet TAKE 1 TABLET BY MOUTH NEEDED FOR LEG SWELLING OR WEIGHT GAIN MORE THAN 3 POUNDS I 1 DAY OR 5 POUNDS IN 1 WEEK. NO MORE THAN ONCE A DAY 07/17/24 Yes Indra Valenzuela MD LORazepam (ATIVAN) 1 mg tablet Take 1 tablet (1 mg total) by mouth 1 (one) time each day if needed for anxiety. 10/18/22 Yes Historical Provider, losartan (COZAAR) 25 mg tablet TAKE 1 TABLET BY MOUTH EVERYDAY AT BEDTIME 07/12/24 Yes Josette Fajardo MD metoprolol succinate (TOPROL-XL) 100 mg 24 hr tablet Take 1 tablet (100 mg total) by mouth 1 (one) time each day. 03/05/24 Yes Historical Provider, multivitamin tablet Take 1 tablet by mouth 1 (one) time each day. Yes Historical Provider, sertraline (ZOLOFT) 100 mg tablet Take 1.5 tablets (150 mg total) by mouth 1 (one) time each day. Yes Historical Provider, ceFAZolin 2 g in dextrose 5 % 50 mL IVPB Infuse 2 g into a venous catheter every 8 (eight) hours for 24 days. 08/02/24 08/26/24 Lashae Donahue MD atorvastatin (LIPITOR) 80 mg tablet Take 1 tablet (80 mg total) by mouth at bedtime. 06/12/24 08/23/24 TA Graham Current Medications: Current Outpatient Medications: atorvastatin (LIPITOR) 80 mg tablet, TAKE 1 TABLET BY MOUTH EVERYDAY AT BEDTIME, Disp: 90 tablet, Rfl: 1 Eliquis 5 mg tablet, TAKE 1 TABLET BY MOUTH EVERY 12 HOURS, Disp: 60 tablet, Rfl: 5 furosemide (LASIX) 40 mg tablet, TAKE 1 TABLET BY MOUTH NEEDED FOR LEG SWELLING OR WEIGHT GAIN MORE THAN 3 POUNDS I 1 DAY OR 5 POUNDS IN 1 WEEK. NO MORE THAN ONCE A DAY, Disp: 90 tablet, Rfl: 1 LORazepam (ATIVAN) 1 mg tablet, Take 1 tablet (1 mg total) by mouth 1 (one) time each day if neededfor anxiety., Disp: , Rfl: losartan (COZAAR) 25 mg tablet, TAKE 1 TABLET BY MOUTH EVERYDAY AT BEDTIME, Disp: 30 tablet, Rfl: 0 metoprolol succinate (TOPROL-XL) 100 mg 24 hr tablet, Take 1 tablet (100 mg total) by mouth 1 (one)time each day., Disp: , Rfl: multivitamin tablet, Take 1 tablet by mouth 1 (one) time each day., Disp: , Rfl: sertraline (ZOLOFT) 100 mg tablet, Take 1.5 tablets (150 mg total) by mouth 1 (one) time each day.,Disp: , Rfl: ROS: Review of Systems Constitutional: Negative. HENT: Negative. Respiratory: Negative. Cardiovascular: Negative. Gastrointestinal: Negative. Genitourinary: Negative. Musculoskeletal: Negative. Skin: Negative. Neurological: Negative. Vital signs for last 24 hours: Temp: 36.4 ??C (97.6 ??F) (08/29 1453) BP: 122/76 (08/29 1453) Physicial Exam Physical Exam Vitals reviewed. Constitutional: Appearance: Normal appearance. HENT: Head: Normocephalic and atraumatic. Eyes: General: No scleral icterus. Cardiovascular: Rate and Rhythm: Normal rate and regular rhythm. Heart sounds: No murmur heard. No friction rub. No gallop. Pulmonary: Effort: Pulmonary effort is normal. No respiratory distress. Breath sounds: Normal breath sounds. No stridor. No wheezing, rhonchi or rales. Chest: Chest wall: No tenderness. Abdominal: General: Abdomen is flat. Bowel sounds are normal. There is no distension. Palpations: Abdomen is soft. There is no mass. Tenderness: There is no abdominal tenderness. There is no right CVA tenderness, left CVA tenderness, guarding or rebound. Hernia: No hernia is present. Musculoskeletal: General: No swelling, tenderness or signs of injury. Comments: No obvious erythema, swelling has receded, nontender, clean scar Skin: General: Skin is warm and dry. Findings: No rash. Neurological: General: No focal deficit present. Mental Status: He is alert and oriented to person, place, and time. Results: Lab No visits with results within 2 Day(s) from this visit. Latest known visit with results is: Appointment on 08/22/2024 Component Date Value Cholesterol 08/22/2024 136 Triglycerides 08/22/2024 115 HDL 08/22/2024 39 (L) LDL Calculated 08/22/2024 74 VLDL Cholesterol Fredrick 08/22/2024 23 Non HDL Chol. (LDL+VLDL) 08/22/2024 97 Chol/HDL Ratio 08/22/2024 3.5 Sodium 08/22/2024 136 Potassium 08/22/2024 4.6 Chloride 08/22/2024 104 CO2 08/22/2024 24 Anion Gap 08/22/2024 8 Glucose 08/22/2024 111 (H) BUN 08/22/2024 54 (H) Creatinine 08/22/2024 2.31 (H) eGFR 08/22/2024 29 (L) BUN/Creatinine Ratio 08/22/2024 23.4 Calcium 08/22/2024 9.8 WBC 08/22/2024 7.1 RBC 08/22/2024 3.70 (L) Hemoglobin 08/22/2024 12.6 (L) Hematocrit 08/22/2024 38.1 (L) MCV 08/22/2024 104.1 (H) MCH 08/22/2024 34.4 (H) MCHC 08/22/2024 33.1 RDW 08/22/2024 13.4 Platelets 08/22/2024 139 MPV 08/22/2024 10.7 NRBC 08/22/2024 0.0 NRBC Absolute 08/22/2024 0.00 Neutrophils Relative 08/22/2024 68.7 Lymphocytes Relative 08/22/2024 17.0 Monocytes Relative 08/22/2024 8.9 Eosinophils Relative 08/22/2024 4.1 Basophils Relative 08/22/2024 0.7 Immature Granulocytes Re* 08/22/2024 0.6 Neutrophils Absolute 08/22/2024 4.84 Lymphocytes Absolute 08/22/2024 1.20 Monocytes Absolute 08/22/2024 0.63 Eosinophils Absolute 08/22/2024 0.29 Basophils Absolute 08/22/2024 0.05 Immature Granulocytes Ab* 08/22/2024 0.04 (H) Lab Results Component Value Date BLOODCX No growth at 5 days 07/30/2024 BLOODCX No growth at 5 days 07/30/2024 MRSA Not Detected 07/25/2024 No results found for this or any previous visit (from the past week). Radiology: Cardiac device check - Remote- MURJ Heart Failure Diagnostic: Stable * Heart failure diagnostics assessed through the device * Status: Stable * No overt HF present Assessment/Plan 1. MSSA bacteremia secondary to right wrist septic arthritis 2. 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 Presence of pacemaker Has completed adequate treatment for his MSSA bacteremia and septic arthritis Has followed up with orthopedic surgery, his sutures have been removed, no further follow-up planned by them PICC line is out Asymptomatic No further need for antibiotic treatment, does not need to follow-up with ID I personally spent 30 minutes in this encounter. This included performing a detailed chart review, reviewing and independently interpreting labs and other tests ordered by other providers, performinga history and physical, counseling the patient/family, , performing complex medical decision making, coordinating his/her/their plan of care and performing documentation Please note that this note has been completed with the help of voice recognition dictation software, as such there may be certain words that may be substituted or written in error error based on the voice-recognition tool, please contact me to clarify if any confusion Mahnaz Amaya MD documented in this encounter Plan of Treatment Upcoming Encounters Date Type Department Care Team (Late st Contact Info) Description 09/18/2024 11:00 AM EST Appointment [facility] PET Scan [address] [place] [phone] 09/27/2024 3:30 PM EDT Appointment [facility] Endoscopy [address] [place] [phone] Delgado Hicks MD [address] [facility] [address] [place] [address] 10/10/2024 10:45 AM EDT Office Visit [facility] Hematology Oncology [address] [place] [phone] Luis Barrera MD [address] [place] [phone] 10/16/2024 12:40 PM EDT Office Visit [facility] [address] [facility] [address] [place] [phone] Larissa Neil NP [address] [facility] [address] [place] [phone] 02/20/2025 11:00 AM EDT Office Visit Adult Medicine [facility] [address] [place] [address] Odessa Mtz PA [address] [place] [address] 09/12/2025 11:00 AM EST Ancillary Procedure [facility] - [facility] [address] [facility] [address] [place] [address] documented as of this encounter Visit Diagnoses Diagnosis MSSA bacteremia- Primary Bloodstream infection associated with central venous catheter, subsequent encounter Staphylococcal arthritis of right wrist (CMS/HCC) Encounter for adjustment or management of cardiac device documented in this encounter Additional Health Concerns Assessment Noted Time PHQ-9 Depression Total Score: 1 08/19/19 25 4:23 PM EST documented as of this encounter Care Teams Social Services Counselor Relationship Specialty Start Date End Date Josette Fajardo MD [address] [place] [id number] PCP - General Internal Medicine 03/31/21 documented as of this encounter
--- OUTSIDE RECORDS SUMMARY | 2024-09-17 18:13 | XMS_ITS | Encounter Summary ---
Author Organization [facility] Address [address] [place] [address] Care Team Providers Care Emblem Fuser Tender Name Role Phone Josette Fajardo MD Primary Care Provider [phone] Reason for Visit * Reason Comments Hospital [facility] Hypertension Hyperlipidemia Encounter Details Date Type Department Care Team (Late st Contact Info) Description 08/22/2024 10:30 AM EST Office Visit Adult Medicine [facility] [address] [place] [phone] Josette Fajardo MD [address] [place], [place] Pyogenic arthritis of right wrist, due to unspecified organism (CMS/HCC) (Primary Dx); Coronary artery disease involving qagan tayagungin coronary artery of qagan tayagungin heart without angina pectoris; Essential hypertension, benign; Paroxysmal atrial fibrillation (CMS/HCC); HFrEF (heart failure with reduced ejection fraction) (CMS/HCC) Social History Tobacco Use Types Packs/Day [...] care for your loved ones. For example, children counselor or elderly care for an older adult? [...] Sign Reading Time Taken Comments Blood Pressure 130/78 08/22/2024 10:33 AM EST Pulse 88 08/22/2024 10:33 AM EST Temperature 35.7 ??C (96.3 ??F) 08/22/2024 10:[address] Respiratory Rate 14 08/22/2024 10:33 AM EST Oxygen Saturation 96% 08/22/2024 10:33 AM EST Inhaled Oxygen Concentration - - Weight 76.2 kg (168 lb) 08/22/2024 10:33 AM EST Height 162.6 cm (5' 4 ) 08/22/2024 10:33 AM EST Body Mass Index 28.84 08/22/2024 10:33 AM EST documented in this [...] documented in this encounter Progress Notes * Josette Fajardo MD - 08/22/2024 10:30 AM EST Chief Complaint: Chief Complaint Patient presents with Hospital Follow-up [facility] Hypertension Hyperlipidemia IDENTIFIER: Kash Jenkins is a 74 y.o. old male HPI He comes for posthospital evaluation accompanied by his . He has known atrial fibrillation, chronic anemia, hypertension, elevated cholesterol, coronary artery disease, chronic kidney disease andan ICD in place, previous urothelial carcinoma with right nephrectomy. He was initially hospitalized July 24 - July 27 after presenting with right wrist pain and swelling with concern for septicarthritis. Arthrocentesis was done with purulent material obtained. He was started on IV antibiotics and was seen by orthopedics as well as infectious disease. Blood cultures were drawn. Orthopedics did get involved and did do a washout of the wrist. He did have some pseudogout crystals and MSSA inthe aspirate. He remained afebrile and was recommended to continue on IV cefazolin with weekly lab work. He was readmitted July 30 - August 02 after blood cultures came back positive for MSSA. He was seen again by infectious disease who recommended that his port be reviewed and to have echocardiogram and continue on cefazolin extending into at least 4 weeks. Echocardiogram did not show any suggestion of endocarditis, ejection fraction 30-35% with global hypokinesis, his chest port was removed and he was discharged home continuing on cefazolin 3 times daily to complete 4 weeks, ending on August 26. He is being followed by the [facility] and physical therapy, his has been administering his medications. He did not have any suggestion of cardiac decompensation or recurrent heart failure, creatinine was stable at 1.94 which was his baseline and he was continued on losartan for his blood pressure, sertraline for depression as well as Lipitor for his cholesterol. He notes that he is generally feeling well at this time, not having chest pain or pressures, no fevers, no shortness of breath or edema. He continues on chronic anticoagulation with apixaban as well as Lipitor, Lasix, Lopressor, sertraline and losartan. He notes that he does have colonoscopy scheduled for next month. ROS: General: No malaise, significant weight loss or fever Respiratory: No cough, wheezing or shortness of breath Cardiovascular: No chest pain, palpitations, no orthopnea Past Medical History: Patient Active Problem List Diagnosis Date Noted Septic arthritis ([facility] 07/24/2024 Anemia in chronic kidney disease 03/28/2024 ICD (implantable cardioverter-defibrillator) in place 08/26/2023 HFrEF (heart failure with reduced ejection fraction) ([facility]) 05/10/2023 Nonischemic cardiomyopathy ([facility]) 05/10/2023 Status post hip replacement 01/14/2023 Sick sinus syndrome ([facility]) 09/30/2022 Paroxysmal atrial fibrillation ([facility]) 09/30/2022 Ventricular tachycardia (paroxysmal) ([facility]) 09/30/2022 Second degree atrioventricular block 04/02/2022 Ureteral cancer, right ([facility]) 02/16/2022 Anxiety 02/16/2022 Malignant neoplasm of right renal pelvis ([facility]) 02/15/2022 Stage 3 chronic kidney disease ([facility]) 02/12/2022 H/O right nephrectomy 12/17/2021 Lumbar radiculopathy, right 10/01/2021 DDD (degenerative disc disease), cervical 01/21/2021 Albuminuria 06/07/2019 Benign enlargement of prostate 11/08/2017 Urothelial carcinoma ([facility]) 09/30/2016 Coronary artery disease involving qagan tayagungin coronary artery of qagan tayagungin heart without angina pectoris 05/29/2014 Kidney cysts 05/01/2013 Clubfoot, congenital 05/29/2009 Hyperlipidemia 02/15/2006 Major depressive disorder 02/15/2006 Essential hypertension, benign 12/09/2005 Surgical History: Past Surgical History: Procedure Laterality Date COLONOSCOPY 06/08/2015 Family History: Family History Problem Relation Name Age of Onset Cancer Other Social History: Social History Tobacco Use Smoking status: Former Current packs/day: 0.00 Types: Cigarettes Quit date: 10/28/2016 Years since quittin.8 Smokeless tobacco: Not on file Substance Use Topics Alcohol use: No Allergies: Bactrim [sulfamethoxazole-trimethoprim], Sulfamethoxazole, and Trimethoprim Medications: Outpatient Medications Marked as Taking for the 08/22/24 encounter (Office Visit) with Josette Fajardo MD Medication Sig Dispense Refill apixaban (ELIQUIS) 5 mg tablet Take 1 tablet (5 mg total) by mouth every 12 (twelve) hours. atorvastatin (LIPITOR) 80 mg tablet Take 1 tablet (80 mg total) by mouth at bedtime. 90 tablet 0 ceFAZolin 2 g in dextrose 5 % 50 mL IVPB Infuse 2 g into a venous catheter every 8 (eight) hours for 24 days. furosemide (LASIX) 40 mg tablet TAKE 1 TABLET BY MOUTH NEEDED FOR LEG SWELLING OR WEIGHT GAIN MORE THAN 3 POUNDS I 1 DAY OR 5 POUNDS IN 1 WEEK. NO MORE THAN ONCE A DAY 90 tablet 1 LORazepam (ATIVAN) 1 mg tablet Take 1 tablet (1 mg total) by mouth 1 (one) time each day if needed for anxiety. losartan (COZAAR) 25 mg tablet TAKE 1 TABLET BY MOUTH EVERYDAY AT BEDTIME 30 tablet 0 metoprolol succinate (TOPROL-XL) 100 mg 24 hr tablet Take 1 tablet (100 mg total) by mouth 1 (one) time each day. multivitamin tablet Take 1 tablet by mouth 1 (one) time each day. sertraline (ZOLOFT) 100 mg tablet Take 1.5 tablets (150 mg total) by mouth 1 (one) time each day. Medication Discontinued/Reordered: There are no discontinued medications. Vitals: Blood pressure 130/78, pulse 88, temperature 35.7 ??C (96.3 ??F), temperature source Temporal, resp. rate 14, height 1.626 m (64 ), weight 76.2 kg (168 lb), SpO2 96%. Body mass index is 28.84 kg/m??.Plan is deferred because the patient is aged 65 or older and a weight gain/reduction plan would complicate other health conditions Physical Exam: General: patient is in no acute distress. Neck supple without adenopathy, no thyromegaly. Lungs clear with auscultation. Heart: regular S1S2 without murmur, rub or gallop. Extremities without cyanosis, clubbing or edema. There is very mild swelling of the dorsum of his left hand around the site of the surgical incision, no wrist warmth or erythema, minimal tenderness with palpation. Labs: Hospital admission and discharge notes, infectious disease and cardiology notes, echocardiogram andlab work reviewed Impression: 1. Pyogenic arthritis of right wrist, due to unspecified organism (CMS/HCC) 2. Coronary artery disease involving qagan tayagungin coronary artery of qagan tayagungin heart without angina pectoris 3. Essential hypertension, benign 4. Paroxysmal atrial fibrillation (CMS/HCC) 5. HFrEF (heart failure with reduced ejection fraction) (CMS/HCC) Assessment and Plan: He was hospitalized with septic arthritis with positive blood cultures and MSSA, is completing 4 weeks of IV antibiotics, no endocarditis seen on echocardiogram. He did not have any cardiac decompensation, not having chest pain or shortness of breath, continues with anticoagulation and reasonable blood pressure control. Lipid levels are ordered today. He will be completing his course of antibiotics next week, he will be pursuing the colonoscopy in September as scheduled. He will return in 4 months,sooner if needed, to see cardiology as well as already planned. He does have a chronic kidney disease and previous nephrectomy, is following with urology as well. documented in this encounter Plan of Treatment Upcoming Encounters Date Type Department Care Team (Late st Contact Info) Description 09/18/2024 11:00 AM EST Appointment [facility] PET Scan [address] [place] [address] 09/27/2024 3:30 PM EDT Appointment [facility] Endoscopy [address] [place] [address] Delgado Hicks MD 175 [facility] [address] [place] [address] 10/10/2024 10:45 AM EDT Office Visit [facility] Hematology Oncology [address] [place] [address] Luis Barrera MD [address] [place] [address] 10/16/2024 12:40 PM EDT Office Visit [facility] - [facility] [address] [facility] [address] [place] [phone] Larissa Neil NP 300 [facility] [address] [place] [phone] 02/20/2025 11:00 AM EDT Office Visit Adult Medicine [facility] [address] [place] [address] Odessa Mtz PA [address] [place] [address] 09/12/2025 11:00 AM EST Ancillary Procedure [facility] - [facility] [address] [facility] [address] [place] [phone] documented as of this encounter Results * (ABNORMAL) Lipid panel with reflex to direct LDL (08/22/2024 11:12 AM EST) Cholesterol 136 0 - 200 mg/dL LAB CHEMISTRY METHOD 08/22/2024 5:18 PM EST [facility] Triglycerides 115 0 - 150 mg/dL LAB CHEMISTRY METHOD 08/22/2024 5:18 PM EST [facility] HDL 39(L) >=40 mg/dL LAB CHEMISTRY METHOD 08/22/2024 5:18 PM EST [facility] LDL Calculated 74 0 - 100 mg/dL LAB CHEMISTRY METHOD 08/22/2024 5:18 PM EST [facility] VLDL Cholesterol Fredrick 23 mg/dL LAB CHEMISTRY METHOD 08/22/2024 5:18 PM EST [facility] Non HDL Chol. (LDL+VLDL) 97 <145 mg/dL LAB CHEMISTRY METHOD 08/22/2024 5:18 PM EST [facility] Chol/HDL Ratio 3.5 0.0 - 4.4 LAB CHEMISTRY METHOD 08/22/2024 5:18 PM [facility] Blood Venous blood specimen / Unknown Venipuncture / Unknown 08/22/2024 11:12 AM EST 08/22/2024 11:12 AM EST us Josette Fajardo MD LAB BLOOD ORDERABLES Final Resul t [facility] [address] [place] [address], documented in this encounter Visit Diagnoses Diagnosis Pyogenic arthritis of right wrist, due to unspecified organism ([facility]/HCC)- Primary Coronary artery disease involving qagan tayagungin coronary artery of qagan tayagungin heart without angina pectoris Essential hypertension, benign Paroxysmal atrial fibrillation ([facility]/HCC) Atrial fibrillation HFrEF (heart failure with reduced ejection fraction) ([facility]) Encounter for adjustment or management of cardiac device documented in this encounter Additional Health Concerns Assessment Noted Time PHQ-9 Depression Total Score: 1 08/19/19 25 4:23 PM EST documented as of this encounter Care Teams Emblem Fuser Tender Relationship Specialty Start Date End Date Josette Fajardo MD [address] [place] [id number] PCP - General Internal Medicine 03/31/21 documented as of this encounter
--- OUTSIDE RECORDS SUMMARY | 2024-09-17 18:13 | XMS_ITS | Encounter Summary ---
Author Organization [facility] Address [address] [place] [address] Care Team Providers Care Poultry Process Worker Name Role Phone Josette Fajardo MD Primary Care Provider [phone] Encounter Details Date Type Department Care Team (Latest Contact Info) Description 09/12/2024 10:00 AM EST Ancillary Procedure [facility] - [facility] [address] [facility] [address] [place] [address] Encounter for adjustment or management of cardiac device Social History Tobacco Use Types Packs/Day Years [...] Assessment Author No 07/24/2024 6:53 PM Karen Dodd, IMAN * Are you blind or do you [...] Karen Dodd RN documented in this encounter Plan of Treatment Upcoming Encounters Date Type Department Care Team (Late st Contact Info) Description 09/18/2024 11:00 AM EST Appointment [facility] PET Scan [address] [place] [address] 09/27/2024 3:30 PM EDT Appointment [facility] Endoscopy [address] [place] [address] Delgado Hicks MD 175 [facility] [address] [place] [address] 10/10/2024 10:45 AM EDT Office Visit [facility] Hematology Oncology [address] [place] [address] Luis Barrera MD [address] [place] [address] 10/16/2024 12:40 PM EDT Office Visit [facility] - [facility] [address] [facility] [address] [place] [phone] Larissa Neil NP 300 [facility] [address] [place] [phone] 02/20/2025 11:00 AM EDT Office Visit Adult Medicine [facility] [address] [place] [address] Odessa Mtz PA [address] [place] [address] 09/12/2025 11:00 AM EST Ancillary Procedure [facility] - [address] [place] [phone] documented as of this encounter Procedures Procedure Name Priority Date/Time Associated Diagnosis Comments CARDIAC DEVICE CHECK- IN CLINIC- [facility] Routine 09/12/2024 9:54 AM EST Encounter for adjustment or management of cardiac device documented in this encounter Results * CARDIAC DEVICE CHECK- IN CLINIC- [facility] (09/12/2024 9:54 AM EST) Date Time Interrogation Session [id number] CV DEVICE CHECK Implantable Pulse Generator Safety Instruction Police Officer MDT CV DEVICE CHECK Implantable Pulse Generator Type JEWELRY DEPARTMENT SUPERVISOR-D CV DEVICE CHECK Implantable Pulse Generator Model Claria MRI Quad CRTD [id number] CV DEVICE CHECK Implantable Pulse Generator Serial Number [id number] CV DEVICE CHECK Implantable Pulse Generator Implant Date [id number] CV DEVICE CHECK Battery Status Middle of Service CV DEVICE CHECK Estuardo Statistic RA Percent Paced 43.60 CV DEVICE CHECK JEWELRY DEPARTMENT SUPERVISOR Statistic JEWELRY DEPARTMENT SUPERVISOR Percent Paced 98.90 CV DEVICE CHECK Atrial Tachy Statistic AT/AF Warren Percent 47.10 CV DEVICE CHECK Lead Channel [...] CV DEVICE CHECK Ventricular chambers paced during JEWELRY DEPARTMENT SUPERVISOR pacing. LV->RV CV DEVICE CHECK Estuardo Setting [...] IMPLANTABLE CAR DIAC DEVICE PROCEDURES Final Result documented in this encounter Visit Diagnoses Diagnosis Encounter for adjustment or management of cardiac device Encounter for adjustment or management of cardiac device documented in this encounter Additional Health Concerns Assessment Noted Time PHQ-9 Depression Total Score: 1 08/19/19 25 4:23 PM EST documented as of this encounter Care Teams Poultry Process Worker Relationship Specialty Start Date End Date Josette Fajardo MD [address] [place] [id number] PCP - General Internal Medicine 03/31/21 documented as of this encounter
== END 2024-09-17 16:00 | disposition home or self-care (01) ==
LOC: HO.HOP 15:19
PROVIDERS: PCP Internal Medicine; Visit Provider Psychiatry & Neurology Psychiatry
DX: F32.5 Major depressive disorder, single episode, in full remission (principal)
CPT/HCPCS: 99214

== ENCOUNTER → 2024-09-17 15:19 | Outpatient (BNVA) | payer MEDICARE, SELFPAY | PROVIDERS: PCP Internal Medicine; Visit Provider Psychiatry & Neurology Psychiatry | DX: F32.5 Major depressive disorder, single episode, in full remission (principal) | CPT/HCPCS: 99212 ==

== ENCOUNTER 2025-02-25 11:59 | Outpatient (AMB) | payer MEDICARE, SELFPAY ==
--- NOTE | 2025-02-25 12:13 | A.OFFPSYCH_ITS ---
Intake Intake Visit Reasons: depression Allergies sulfamethoxazole (From Bactrim) Allergy (Intermediate, Verified 03/30/24 09:49) Hives trimethoprim (From Bactrim) Allergy (Intermediate, Verified 03/30/24 09:49) Hives Medication List - Last Reconciled 02/25/25 by Qamar Pruitt MD acetaminophen 650 mg (2 x 325 mg) PO Q6H PRN 30 days albuterol sulfate 90 mcg/actuation (Ventolin HFA) 1 inh inhalation QID PRN amoxicillin 2,000 mg (4 x 500 mg) PO ONCE 1 day apixaban (Eliquis) 5 mg PO BID atorvastatin 80 mg PO DAILY celecoxib 200 mg PO BID 30 days cetirizine 10 mg PO DAILY docusate sodium 100 mg PO BID 30 days fluticasone propionate 50 mcg/actuation 50 mcg intranasal DAILY furosemide 40 mg PO DAILY PRN lorazepam 0.5 mg (1/2 x 1 mg) PO BID PRN losartan 25 mg PO QAM metoprolol succinate ER 100 mg PO QAM miscellaneous medical supply As directed oxycodone 5 mg PO Q4H PRN 7 days sertraline 150 mg (1.5 x 100 mg) PO QAM 3 months walker Folding Front wheeled walker HPI- Psychiatric Chief Complaint: depression HPI Narrative: Patient seen psychiatric follow-up. No significant depressive or anxiety symptoms. Medically stable despite cancer diagnosis no metastases patient's quality of life generally good continues on sertraline low-dose Ativan as needed Past Psychiatric History: hx of depression panic past hx alcohol use has been stable x years 1 prior adm Mental Status Exam Mental Status Exam Narrative: Mental Status Exam Narrative: Appearance: Casually dressed Behavior: Cooperative appropriate psychomotor: Mild balance problems Speech: Normal volume and prosody Thought proccess logical and goal-directed Thought content: Future oriented feeling good about his and supported by his family Mood: Euthymic Affect: Appropriate to mood full affect SI:denies HI:denies VH/AH:none Delusions: None Insight/judgment: Good insight and judgment Memory/cog: Intact Assessment and Plan Assessment & Plan (1) Major depression in full remission: Status: Acute Code(s): F32.5 - Major depressive disorder, single episode, in full remission (2) Bladder cancer: Status: Acute Code(s): C67.9 - Malignant neoplasm of bladder, unspecified (3) Renal cancer: Status: Acute Code(s): C64.9 - Malignant neoplasm of unspecified kidney, except renal pelvis Plan Patient stable continue plan of care Medications: Refilled sertraline 150 mg (1.5 x 100 mg) PO QAM 135 tabs 1RF 3 months lorazepam 0.5 mg (1/2 x 1 mg) PO BID PRN 60 tabs 3RF anxiety Counseling and coordination of Care Details-Self Mgmt counseling: Issues related to correction dealing with chronic medical issues Medication management counseling: Effectiveness and Side effects Diagnosis and Prognosis Counseling: Adequacy of current interventions Details: I spent [] minutes reviewing the record, seeing the patient and documenting in the medical record. Counseling provided to the patient/caregiver as outlined below. Addressed patient/caregiver concerns regarding current medication regime including effective adherence. Addressed patient/caregiver concerns regarding diagnosis and prognosis including accuracy of diagnosis, prognosis over time, impact of diagnosis. Addressed patient/caregiver concerns regarding impact of recent stressors. [facility] Medical History Anemia Atrial fibrillation Bladder cancer CAD (coronary artery disease) Chronic kidney disease Elevated cholesterol HTN (hypertension) Major depression Osteoarthritis Osteoarthritis of right hip Renal cancer Surgical History H/O colonoscopy History of heart artery stent History of permanent cardiac pacemaker placement History of right nephrectomy History of surgery Hx of cystoscopy S/P lumbar spinal fusion Social History Household Members: Spouse Housing: House Are you a primary long term care social worker to a significant other at home: No Do you presently have visiting nurse or other home services: No Patient Tobacco Use Status: Former Tobacco user Tobacco use type: Cigarette Years Smoked: 40 Advance Directives Date on File: 12/29/22 Social History: fam hx cancer mther anxiety depression 1 brother 2 children used work manufacturing Substance History: past alcohol Trauma History: none Coding Level of Care Code Est Pt Level 4 (80372) Diagnoses Major depression in full remission F32.5 Bladder cancer C67.9 Renal cancer C64.9
--- OUTSIDE RECORDS SUMMARY | 2025-02-25 12:29 | XMS_ITS | Clinical Summary ---
Author Organization [facility] Address [address] [place] [address] Phone Care Team Providers Care Marketing Sales Consultant Name Role Phone Josette Fajardo MD Primary Care Provider [phone] Allergies Active Allergy Reactions Criticality Noted Date Comments Sulfamethoxazole-Trimethoprim Hives 2017 Sulfamethoxazole 07/30/2021 Trimethoprim 07/30/2021 Medications LORazepam (ATIVAN) 1 mg tablet Take 1 tablet (1 mg total) by mouth 1 (one) time each day if needed for anxiety. 10/19/19 23 Active sertraline (ZOLOFT) 100 mg tablet Take 1.5 tablets (150 mg total) by mouth 1 (one) time each day. Active multivitamin tablet Take 1 tablet by mouth 1 (one) time each day. Active atorvastatin (LIPITOR) 80 mg tablet TAKE 1 TABLET BY MOUTH EVERYDAY AT BEDTIME 90 tablet 1 08/23/19 25 Active ferrous sulfate 325 mg (65 mg elemental iron) tablet Take 1 tablet (325 mg total) by mouth 1 (one) time each day with breakfast. Active omeprazole (PriLOSEC) [address] capsule Take 1 capsule (20 mg total) by mouth 1 (one) time each day. Do not crush or chew. 30 each 11 09/29/19 25 026 Active losartan (Cozaar) 25 mg tablet Take 1 tablet (25 mg total) by mouth 1 (one) time each day. 90 each 1 10/26/19 25 026 Active furosemide (LASIX) 40 mg tablet TAKE 1 TABLET BY MOUTH EVERY DAY NEEDED FOR LEG SWELLING OR WEIGHT GAIN GREATER THAN 3LBS/DAY OR 5LBS/WEEK 90 tablet 2 12/04/19 25 Active Eliquis 5 mg tablet TAKE 1 TABLET BY MOUTH EVERY 12 HOURS 60 tablet 5 02/01/20 25 Active metoprolol succinate (TOPROL-XL) 100 mg 24 hr tablet TAKE 1 TABLET BY MOUTH EVERY DAY 90 tablet 3 02/01/20 25 Active metoprolol succinate (TOPROL-XL) 100 mg 24 hr tablet Take 1 tablet (100 mg total) by mouth 1 (one) time each day. 03/05/20 24 025 Discontinued Eliquis 5 mg tablet TAKE 1 TABLET BY MOUTH EVERY 12 HOURS 60 tablet 5 08/22/19 25 025 Discontinued Shingrix, PF, 50 mcg/0.5 mL suspension for reconstitution 12/08/19 25 025 Discontinued(T herapy completed) Active Problems Patient Care Coordination No te Formatting of this note migh t be different from the original. [facility], Option Care Problem Noted Date Diagnosed Date Septic arthritis ([facility] V24, [facility] V28) 01/2025 Anemia in chronic kidney disease 03/28/2024 ICD (implantable cardioverter-defibrillator) in place 08/26/2023 Overview (05/23/2024): 09/10 replaced pacemaker with biventricular ICD HFrEF (heart failure with re duced ejection fraction) ([facility] V24, [facility] V28) 05/10/2023 Overview (07/29/2024): Nonischemic cardiomyopathy ([facility] V24, [facility] V28) 05/10/2023 Status post hip replacement 01/14/2023 Overview (05/23/2024): 01/07 right THR Sick sinus syndrome ([facility] V24, [facility] V28) 0 09/30/2022 Paroxysmal atrial fibrillation ([facility] V24, [facility] V28) 09/30/2022 Overview (07/29/2024): Ventricular tachycardia (par oxysmal) ([facility] V24, [facility] V28) 09/30/2022 Second degree atrioventricular block 04/02/2022 Ureteral cancer, right ([facility] V24, [facility] V28 ) 02/16/2022 Anxiety 02/16/2022 Malignant neoplasm of right renal pelvis ([facility] V24, [facility] V28) 02/15/2022 Stage 3 chronic kidney disease ([facility] V24, [facility] V28) 02/12/2022 H/O right nephrectomy 12/17/2021 Overview (05/23/2024): Right side -- papillary urothelial ca Lumbar radiculopathy, right 10/01/2021 DDD (degenerative disc disease), cervical 2020 Albuminuria 06/07/2019 Benign enlargement of prostate 11/08/2017 Urothelial carcinoma ([facility] V24, [facility] V28) 09/30/2016 Overview (05/23/2024): 07/31 TURB 09/30 TURB, BCG 12/06 high grade right renal pelvis urothelial carcinoma, TURB and radical nephroureterectomy Coronary artery disease invo lving [place] coronary artery of [place] heart without angina pectoris 05/29/2014 Overview (07/29/2024): [...] hematuria 11/08/2017 07/24/2024 Malignant neoplasm of dome o f urinary bladder ([facility] V24, [facility] V28) 11/08/2017 07/24/2024 Malignant neoplasm of overla pping sites of bladder ([facility] V24, [facility] V28) 11/08/201708/22 Abnormal urine cytology 11/08/201701/2025 Low back pain radiating to left leg 05/01/2013 07/24/2024 Overview (05/23/2024): DJD of the lumbar spine Encounters Date Type Department Care Team Description 02/20/2025 11:00 AM EDT Office Visit Adult Medicine [address] [address] Odessa Mtz PA 02/20/2025 2:15 AM EDT Ancillary Procedure [facility] - [facility] [address] [facility] [address] [place] [address] 02/18/2025 Telephone Lung Screening Program - [place] [address] [facility] [address] [place] [phone] Rosy Villafuerte [place] Appointment (Interim) 01/26/2025 1:15 AM EDT Ancillary Procedure [facility] [place] - [facility] [address] [facility] [address] [place] [address] 01/10/2025 10:15 AM EDT Office Visit [facility] Hematology Oncology [address] [place] [phone] Luis Aguila MD Malignant neoplasm of right renal pelvis ([facility] V24, [facility] V28) (Primary Dx); Ureteral cancer, right ([facility] V24, CMS/HCC V28); Stage 3b chronic kidney disease ([facility] V24, [facility] V28); Paroxysmal atrial fibrillation ([facility] V24, [facility] V28); Lumbar radiculopathy, right; ICD (implantable cardioverter-defibril lator) in place 01/01/2025 11:25 AM EDT Ancillary Procedure [facility] - [address] [place] [address] from Last 3 Months Immunizations Name Administration Dates Next Due COVID-19 (Pfizer/Comirnaty) 12yo and older 04/25/2024,07/27/2023 Influenza trivalent, 0.5mL ( Fluad) 65yo and older 04/29/2023,04/29/2022 Influenza trivalent, 0.5mL ( Fluzone High-dose) 65yo and older 05/01/2021,04/23/2020,03/10/2019,03/29,09/06/2017 Influenza trivalent, with pr eservative (Fluzone; Afluria) 6mo and older 05/04/2021 Influenza, Unspecified 05/03/2019 Pfizer (ages 12 & older) Biv alent, COVID-19 07/27/2023,06/06/2022 Pfizer SARS-CoV-2 COVID-19, mRNA, LNP-S, preservative free [...] pertussis (Boostrix; Adacel) 7yo and older 05/23/2008 Zoster recombinant (Shingrix ) 19yo and older 12/07/2024,10/08/2024 Surgical History Surgery Date Site/Laterality Comments COLONOSCOPY 06/08/2015 TOTAL HIP ARTHROPLASTY Left KIDNEY SURGERY Right REMOVED Medical History Medical History Date Comments Depression DX:Depression Hypertension DX:Hypertension Hypercholesterolemia DX:Hypercho lesterolemia Bladder cancer ([facility] V24, [facility] V28) Sick sinus syndrome (CMS/HCC V24, CMS/[facility] V28) Personal history of kidney cancer Cardiac defibrillator in place Colon polyp Family History Medical History Relation Name Comments [...] you may not have stable housing? No 02/18/2025 Food Access & Nutrition Answer Date Rec orded Do you have access to a vari ety of food including fruits and vegetables? Yes 02/18/2025 Access to Healthcare Answer Date Record ed Within the last 3 months, ho w many times did you visit the emergency department for your medical care? 0 02/18/2025 Health Literacy Answer Date Recorded How often do you need to hav e someone help you when you read instructions, pamphlets, or other written material from your doctor or pharmacy? Sometimes 02/18/2025 Caregiver: How often do you need to have someone help you when you read instructions, pamphlets, or other written material from your doctor or pharmacy? Not on file 02/18/2025 Financial Risk Answer Date Recorded How hard is it for you to pa y for the very basics like food, housing, medical care, and air conditioning / heating? Not very hard 02/18/2025 Transportation Answer Date Recorded Has the lack of transportati on kept you from meetings, work, or from getting things needed for daily living? No Has the lack of transportati on kept you from medical appointments or from getting medications? No 02/18/2025 Social Isolation Answer Date Recorded How often do you feel lonely or isolated from th ose around you? Never 02/18/2025 Food Risk Answer Date Recorded Within the past 12 months we worried whether our food would run out before we got money to buy more. Never true 02/18/2025 Within the past 12 months th e food we bought just didn't last and we didn't have money to get more. Never true 02/18/2025 Dependent Care Answer Date Recorded Do you need help finding or paying for care for your loved ones. For example, child care counselor or elderly care for an older adult? No 02/18/2025 Education Answer Date Recorded Do you think completing more education or training, like finishing a GED, going to college, or learning a trade, would be helpful for you? No 02/18/2025 Employment and Income Answer Date Recor ded During the last four weeks, have you been actively looking for work? No 02/18/2025 Living Situation Answer Date Recorded What is your living situation? 0 02/18/2025 Interpersonal Safety Answer Date Record ed Physical Abuse 09/27/2024 Verbal Abuse 09/27/2024 Sex and Gender Information Value Date Recorded Sex Assigned at Male 09/26/2024 8:32 AM EDT Legal Sex Male 4:06 AM EST Gender Identity Male 09/26/2024 8:32 AM EDT Sexual Orientation Straight 09/26/2024 8: 32 AM EDT Obstetrics History Last Filed Vital Signs Vital Sign Reading Time Taken Comments Blood Pressure 120/50 02/20/2025 11:08 AM EDT Pulse 45 02/20/2025 11:08 AM EDT Temperature 35.9 C (96.6 F) 02/20/2025 11:08 AM EDT Respiratory Rate 14 02/20/2025 11:08 AM EDT Oxygen Saturation 99% 02/20/2025 11:08 AM EDT Inhaled Oxygen Concentration - - Weight 78.5 kg (173 lb) 02/20/2025 11:08 AM EDT Height 162.6 cm (5' 4 ) 02/20/2025 11:08 AM EDT Body Mass Index 29.7 02/20/2025 11:08 AM EDT Plan of Treatment Upcoming Encounters Date Type Department Care Team (Late st Contact Info) Description 04/29/2025 10:30 AM EDT Office Visit [facility] Hematology Oncology [address] [place] [phone] Luis Barrera MD [address] [place] [phone] 08/29/2025 11:00 AM EST Office Visit Adult Medicine [facility] [address] [place] [address] Josette Fajardo MD [address] [place] [address] 09/12/2025 11:00 AM EST Ancillary Procedure [facility] [address] [facility] [address] [place] [address] Health Maintenance Due Date Last Done Comments RSV Immunization Adult Patients (1 - Risk 60-74 years 1-dose series) 2010 06/02/2023 Medicare Annual Wellness Visit 06/26/2022 COVID-19 Vaccine (7 - Pfizer risk 2023- season) 2024 04/25/2024, 07/27/2023, 07/27/2023, Additional history exists Influenza Vaccine (#1) 2025 , 04/29/2022, 05/04/2021, Additional history exists Hypertension/CHF/CAD Annual BMP Blood Test 01/10/2026 01/10/2025, 10/24/2024, 09/14/2024, Additional history exists Social Influencers of Health Screening 02/18/2026 02/18/2025 Falls Risk Assessment 02/20/2026 02/20/2025, 025 Cholesterol Screening (Lipid Panel) 08/22/2029 08/22/2024 Colorectal Cancer Screening: Colonoscopy 09/27/2029 09/27/2024, 05/15/2020 DTaP,Tdap,and Td Vaccines (4 - Td or Tdap) 05/13/2031 05/13/2021, 05/13/2021, 05/23/2008 Hepatitis C Screening Addressed 06/07/2019 Overri dden with the intention of not completing the topic RSV Immunization Patients Under 20 months Aged Out 06/02/2023 No longer eligible based on patient's age to complete this topic Pneumococcal Vaccine: 50+ Years Completed 02/01/2024, 08/11/2018, 09/30/2016 Abdominal Aortic Aneurysm (AAA) Screen Completed 05/28/2024 Zoster Vaccines Completed 12/07/2024, 10/08/2024 Depression Screening Completed 02/18/2025 HIB Vaccines Aged Out No longer eligi [...] age to complete this topic Meningococcal B Vaccine Aged Out No l onger eligible based on patient's age to complete this topic Varicella Vaccines Aged Out No longer eligible based on patient's age to complete this topic Procedures Procedure Name Priority Date/Time Associated Diagnosis Comments CARDIAC DEVICE CHECK- REMOTE- MURJ Routine 02/20/2025 2:10 AM EDT CARDIAC DEVICE CHECK- REMOTE- MURJ Routine 01/26/2025 1:11 AM EDT CBC WITH AUTO DIFFERENTIAL Routine 01/10/2025 10:41 AM EDT Malignant neoplasm of right renal pelvis (CMS/HCC V24, CMS/HCC V28) COMPREHENSIVE METABOLIC PANEL Routine 01/10/2025 10:41 AM EDT Malignant neoplasm of right renal pelvis (CMS/HCC V24, CMS/HCC V28) CBC AND DIFFERENTIAL Routine 01/10/2025 10:41 AM EDT Malignant neoplasm of right renal pelvis (CMS/HCC V24, CMS/HCC V28) CARDIAC DEVICE CHECK- REMOTE- MURJ Routine 01/01/2025 11:21 AM EDT PROSTATE SPECIFIC ANTIGEN DIAGNOSTIC Routine 11/29/2024 11:53 AM EDT BPH with obstruction/lower urinary tract symptoms COLONOSCOPY Routine 09/27/2024 4:00 PM EDT Rectal pain LIPID PANEL WITH REFLEX TO DIRECT LDL Routine 08/22/2024 11:12 AM EST Coronary artery disease involving [place] coronary artery of [place] heart without angina pectoris from Last 3 Months or Most Recently Relevant to Health Maintenance Results * Cardiac device check - Remote- MURJ (02/20/2025 2:10 AM EDT) Only the most recent of3 resultswithin the time period is included. Date Time Interrogation Session [id number] CV DEVICE CHECK Type Interrogation Session Remote CV DEVICE CHECK Implantable Pulse Generator Journal Clerk MDT CV DEVICE CHECK Implantable Pulse Generator Type FOUNDRY FINISHER-D CV DEVICE CHECK Implantable Pulse Generator Model Claria MRI Quad CRTD [id number] CV DEVICE CHECK Implantable Pulse Generator Serial Number [id number] CV DEVICE CHECK Implantable Pulse Generator Implant Date [id number] CV DEVICE CHECK Battery Remaining Longevity 82.0 CV DEVICE CHECK Battery Voltage 2.990 CV D EVICE CHECK Battery HEALTH OCCUPATIONS TEACHER Trigger 2.727 CV DEVICE CHECK Battery Status Middle of Service CV DEVICE CHECK Capacitor Charge Time 3.843 CV DEVICE CHECK Estuardo Statistic RA Percent Paced 13.94 CV DEVICE CHECK Atrial Tachy Statistic AT/AF [place] Percent 75.50 CV DEVICE CHECK Lead Channel Sensing Intrinsic Amplitude 4.250 CV DEVICE CHECK Lead Channel Setting Sensing Sensitivity 0.30 CV DEVICE CHECK Lead Channel Impedance Value 361 CV DEVICE CHECK Lead Channel Setting Pacing [...] CHECK Lead Channel RV Pacing Threshold Date 2025-02-19 CV DEVICE CHECK Lead Channel Setting Pacing Amplitude 2.000 CV DEVICE CHECK Lead Channel Setting Pacing Pulse Width 0.4 CV DEVICE CHECK Lead Channel Impedance Value 551 CV DEVICE CHECK Lead Channel Pacing Threshold Amplitude 0.750 CV DEVICE CHECK Lead Channel Pacing Threshold Pulse Width 0.4 CV DEVICE CHECK Lead Channel Pacing Threshold Date 2025-02-19 CV DEVICE CHECK Lead Channel Setting Pacing Amplitude 1.250 CV DEVICE CHECK Lead Channel Setting Pacing Pulse Width 0.4 CV DEVICE CHECK Estuardo Setting Mode (NBG Code) DDDR CV DEVICE CHECK Ventricular chambers paced during FOUNDRY FINISHER pacing. BiV CV DEVICE CHECK Estuardo Setting Lower Rate Limit 60 CV DEVICE CHECK Estuardo Setting AT Mode Switch Rate 171 CV DEVICE CHECK Estuardo Setting Maximum Tracking Rate 130 CV DEVICE CHECK Estuardo Setting Maximum Sensor Rate 130 CV DEVICE CHECK Estuardo Setting PAV Delay 130 CV DEVICE CHECK Estuardo Setting YASMIN Delay 100 CV DEVICE CHECK FOUNDRY FINISHER LV-RV Delay 0 CV D EVICE CHECK Therapy Statistic Recent [...] 6 CV DEVICE CHECK Date of Service 2025-03-26 CV DEVICE CHECK Anatomical Region Laterality Modality Device Interroga tion 02/19/2025 3:35 AM EDT Impressions 02/19/2025 3:47 PM EDT Heart Failure Diagnostic: Stable * Heart failure diagnostics assessed through the device * Status: Stable * No overt HF present Narrative Procedure Note Jean-Paul Amador MD - 02/20/2025 IMPRESSION: Heart Failure Diagnostic: Stable * Heart failure diagnostics assessed through the device * Status: Stable * No overt HF present Jean-Paul Amador MD CV IMPLANTABLE CARDIAC DEVICE PROCEDURES Final Result * (ABNORMAL) CBC auto differential (01/10/2025 10:41 AM EDT) [facility] WBC 7.4 4.8 - 10.8 K/mcL LAB HEMETOLOGY METHOD 01/10/2025 12:46 PM [facility] RBC 3.90(L) 4.50 - 5.50 M/mcL LAB HEMETOLOGY METHOD 01/10/2025 12:46 PM [facility] Hemoglobin 13.3(L) 13.5 - 17.5 g/dL LAB HEMETOLOGY METHOD 01/10/2025 12:46 PM [facility] Hematocrit 39.6(L) 42.0 - 54.0 % LAB HEMETOLOGY METHOD 01/10/2025 12:46 PM [facility] MCV 101.0(H) 79.0 - 98.0 FL LAB HEMETOLOGY METHOD 01/10/2025 12:46 PM [facility] MCH 33.9(H) 27.0 - 32.0 pcg LAB HEMETOLOGY METHOD 01/10/2025 12:46 PM [facility] MCHC 33.6 32.0 - 37.0 g/dL LAB HEMETOLOGY METHOD 01/10/2025 12:46 PM [facility] RDW 13.0 11.0 - 15.0 % LAB HEMETOLOGY METHOD 01/10/2025 12:46 PM [facility] Platelets 125(L) 130 - 400 K/mcL LAB HEMETOLOGY METHOD 01/10/2025 12:46 PM [facility] MPV 10.4 7.0 - 11.0 FL LAB HEMETOLOGY METHOD 01/10/2025 12:46 PM [facility] NRBC 0.0 <1.0 % LAB HEMETOLOGY METHOD 01/10/2025 12:46 PM [facility] NRBC Absolute 0.00 <0.10 K/mcL LAB HEM[facility]OLOGY [facility] Neut[facility]ils Relative 69.8 % LAB HEMETOLOGY METHOD 01/10/2025 12:46 PM [facility] Lymphocytes Relative 20.1 % LAB HEMETOLOGY METHOD 01/10/2025 12:46 PM [facility] Monocytes Relative 8.3 % LAB HEMETOLOGY METHOD 01/10/2025 12:46 PM [facility] Eosinophils Relative 1.1 % LAB HEMETOLOGY METHOD 01/10/2025 12:46 PM [facility] Basophils Relative 0.3 % LAB HEMETOLOGY METHOD 01/10/2025 12:46 PM [facility] Immature Granulocytes Relative 0.4 % LAB HEMETOLOGY METHOD 01/10/2025 12:46 PM [facility] Neutrophils Absolute 5.19 1.50 - 7.00 K/mcL LAB HEMETOLOGY METHOD 01/10/2025 12:46 PM [facility] Lymphocytes Absolute 1.49 1.00 - 5.00 K/mcL LAB HEMETOLOGY METHOD 01/10/2025 12:46 PM [facility] Monocytes Absolute 0.62 0.20 - 1.00 K/mcL LAB HEMETOLOGY METHOD 01/10/2025 12:46 PM [facility] Eosinophils Absolute 0.08 0.00 - 0.50 K/mcL LAB HEMETOLOGY METHOD 01/10/2025 12:46 PM [facility] Basophils Absolute 0.02 0.00 - 0.20 K/mcL LAB HEMETOLOGY METHOD 01/10/2025 12:46 PM [facility] Immature Granulocytes Absolute 0.03 0.00 - 0.03 K/mcL LAB HEMETOLOGY METHOD [facility]10[facility] Blood Venous blood specimen / Unknown Venipuncture / Unknown 01/10/2025 10:41 AM EDT 01/10/2025 12:33 PM EDT Luis Barrera MD LAB BLOOD ORDERABLE S Final Result [facility] [address] [place] [address], * (ABNORMAL) Comprehensive metabolic panel (01/10/2025 10:41 AM EDT) Sodium 141 133 - 145 mmol/L LAB CHEMISTRY METHOD 01/10/2025 2:12 PM [facility] Potassium 4.7 3.5 - 5.5 mmol/L LAB CHEMISTRY METHOD 01/10/2025 2:12 PM [facility] Chloride 109 96 - 110 mmol/L LAB CHEMISTRY METHOD 01/10/2025 2:12 PM [facility] CO2 24 21 - 32 mmol/L LAB CHEMISTRY METHOD 01/10/2025 2:12 PM [facility] Anion Gap 8 3 - 11 LAB CHEMISTRY METHOD 01/10/2025 2:12 PM [facility] Glucose 80 70 - 100 mg/dL LAB CHEMISTRY METHOD 01/10/2025 2:12 PM [facility] BUN 49(H) 5 - 25 mg/dL LAB CHEMISTRY METHOD 01/10/2025 2:12 PM [facility] Creatinine 2.28(H) 0.70 - 1.30 mg/dL LAB CHEMISTRY METHOD 01/10/2025 2:12 PM [facility] eGFR 29(L) >=60 mL/min/1. 73m2 LAB CHEMISTRY METHOD 01/10/2025 2:12 PM [facility] Comment:Calculation based on the Chronic Kidney Disease Epidemiology Collaboration (CKD-EPI) equation refit without adjustment for race. BUN/Creatinine Ratio 21.5 LAB CHEMISTRY METHOD 01/10/2025 2:12 PM EDT [facility] Calcium 9.2 8.5 - 10.5 mg/dL LAB CHEMISTRY METHOD 01/10/2025 2:12 PM EDT [facility] AST (SGOT) 31 10 - 42 unit/L LAB CHEMISTRY METHOD 01/10/2025 2:12 PM EDT [facility] ALT (SGPT) 44 10 - 60 unit/L LAB CHEMISTRY METHOD 01/10/2025 2:12 PM T [facility] Alkaline Phosphatase 176(H) 42 - 121 unit/L LAB CHEMISTRY METHOD 01/10/2025 2:12 PM EDT [facility] Total Protein 7.1 6.0 - 8.0 g/dL LAB CHEMISTRY METHOD 01/10/2025 2:12 PM EDT [facility] Albumin 4.1 3.2 - 5.0 g/dL LAB CHEMISTRY METHOD 01/10/2025 2:12 PM [facility] Total Bilirubin 0.6 0.0 - 1.4 mg/dL LAB CHEMISTRY METHOD 01/10/2025 2:12 PM T [facility] Blood Venous blood specimen / Unknown Venipuncture / Unknown 01/10/2025 10:41 AM EDT 01/10/2025 12:35 PM EDT us Luis Barrera MD LAB BLOOD ORDERABLE S Final Result [facility] [address] [place] [address], * Prostate specific antigen diagnostic (11/29/2024 11:53 AM EDT) PSA 0.35 0.00 - 4.00 ng/mL LAB CHEMISTRY METHOD 11/29/2024 2:48 PM EDT [facility] Blood Venous blood specimen / Unknown Venipuncture / Unknown 11/29/2024 11:53 AM EDT 11/29/2024 11:53 AM EDT Narrative [facility] - 11/29/2024 2:48 PM EDT The Siemens Advia Centaur Chemiluminescent Immunoassay is used. Results obtained with different assay methods or kits cannot be used interchangeably. Results cannot be interpreted as absolute evidence of the presence or absence of malignant disease. us Chris Parish MD LAB BLOOD ORDERABLES Final Resul t [facility] [address] [place] [address], * COLONOSCOPY Anesthesia - MAC; [facility] ENDOSCOPY (09/27/2024 4:00 PM EDT) Anatomical Region Laterality Modality Endoscopy 09/27/2024 3:36 PM EDT Impressions 09/27/2024 4:13 PM EDT - Two 3 to 6 mm polyps in the transverse colon and in the ascending colon, removed with a cold snare. Resected and retrieved. - One diminutive polyp in the descending colon, removed with a jumbo cold forceps. Resected and retrieved. - Diverticulosis in the sigmoid colon and in the descending colon. - Internal hemorrhoids. - The examination was otherwise normal. Recommendation: - Discharge patient to home. - Await pathology results. - No repeat colonoscopy due to age. Narrative 09/27/2024 4:13 PM EDT [facility] GI Patient Name: Kash Jenkins Procedure Date: 09/27/2024 3:36 PM Date of : 1950 Age: 74 Gender: Male Note Status: Finalized Attending MD: Delgado Hicks MD, Procedure Date No Time: 09/27/2024 Procedure: Colonoscopy Indications: Abnormal PET scan of the GI tract Providers: Delgado Hicks MD Referring MD: Delgado Hicks MD Medicines: Monitored Anesthesia Care Complications: No immediate complications. Estimated blood loss: Minimal. Estimated Blood Loss: Estimated blood loss was minimal. Procedure: After I obtained informed consent, the scope was passed under direct vision. Throughout the procedure, the patient's blood pressure, pulse, and oxygen saturations were monitored continuously.The Olympus Colonoscope was introduced through the anus and advanced to the cecum, identified by appendiceal orifice and ileocecal valve. The colonoscopy was performed without difficulty. The patient tolerated the procedure well. The quality of the bowel preparation was good. Findings: The perianal and digital rectal examinations were normal. Two sessile polyps were found in the transverse colon and ascending colon. The polyps were 3 to 6 mm in size. These polyps were removed with a cold snare. Resection and retrieval were complete. Estimated blood loss was minimal. A diminutive polyp was found in the descending colon. The polyp was sessile. The polyp was removed with a jumbo cold forceps. Resection and retrieval were complete. Estimated blood loss: Minimal. Multiple small-mouthed diverticula were found in the sigmoid colon and descending colon. Internal hemorrhoids were found during retroflexion. The hemorrhoids were Grade I (internal hemorrhoids that do not prolapse) and Grade II (internal hemorrhoids that prolapse but reduce spontaneously). The exam was otherwise without abnormality. Procedure Code(s): --- Professional --- 54506, Colonoscopy, flexible; with removal of tumor(s), polyp(s), or other lesion(s) by snare technique 13276, 59, Colonoscopy, flexible; with biopsy, single or multiple Diagnosis Code(s): --- Professional --- D12.3, Benign neoplasm of transverse colon (hepatic flexure or splenic flexure) D12.2, Benign neoplasm of ascending colon D12.4, Benign neoplasm of descending colon CPT copyright 2020 [employer]. All rights reserved. The codes documented in this report are preliminary and upon pillow filler review may be revised to meet current compliance requirements. Delgado Hicks MD 09/27/2024 4:13:30 PM This report has been signed electronically.Delgado Hicks MD Number of Addenda: 0 Note Initiated On: 09/27/2024 3:36 PM Scope Withdrawal Time: 0 hours 8 minutes 40 seconds Scope In: 3:38:28 PM Scope Out: 3:49:44 PM Endoscopy Department at [facility] - [address] [place] [phone] Procedure Note Delgado Hicks MD - 09/27/2024 [facility] GI Patient Name: Kash Jenkins Procedure Date: 09/27/2024 3:36 PM Date of : 1950 Age: 74 Gender: Male Note Status: Finalized Attending MD: Delgado Hicks MD, Procedure Date No Time: 09/27/2024 Procedure: Colonoscopy Indications: Abnormal PET scan of the GI tract Providers: Delgado Hicks MD Referring MD: Delgado Hicks MD Medicines: Monitored Anesthesia Care Complications: No immediate complications. Estimated blood loss: Minimal. Estimated Blood Loss: Estimated blood loss was minimal. Procedure: After I obtained informed consent, the scope was passed under direct vision. Throughout theprocedure, the patient's blood pressure, pulse, and oxygen saturations were monitored continuously.The Olympus Colonoscope was introduced through the anus and advanced to the cecum, identified by appendiceal orifice and ileocecal valve. The colonoscopy was performed without difficulty. The patient tolerated the procedure well. The quality of the bowel preparation was good. Findings: The perianal and digital rectal examinations were normal. Two sessile polyps were found in the transversecolon and ascending colon. The polyps were 3 to 6 mm in size. These polyps were removed with a cold snare. Resection and retrieval were complete. Estimatedblood loss was minimal. A diminutive polyp was found in the descendingcolon. The polyp was sessile. The polyp was removed with a jumbo cold forceps. Resection and retrieval were complete. Estimated blood loss: Minimal. Multiple small-mouthed diverticula were found inthe sigmoid colon and descending colon. Internal hemorrhoids were found duringretroflexion. The hemorrhoids were Grade I (internal hemorrhoids that do not prolapse) and Grade II (internal hemorrhoids that prolapse but reducespontaneously). The exam was otherwise without abnormality. Procedure Code(s): --- Professional --- 75730, Colonoscopy, flexible; with removal of tumor(s), polyp(s), or other lesion(s) by snare technique 49923, 59, Colonoscopy, flexible; with biopsy,single or multiple Diagnosis Code(s): --- Professional --- D12.3, Benign neoplasm of transverse colon (hepatic flexure or splenic flexure) D12.2, Benign neoplasm of ascending colon D12.4, Benign neoplasm of descending colon CPT copyright 2020 [employer]. All rights reserved. The codes documented in this report are preliminary and upon pillow filler reviewmay be revised to meet current compliance requirements. Delgado Hicks MD 09/27/2024 4:13:30 PM This report has been signed electronically.Delgado Hicks MD Number of Addenda: 0 Note Initiated On: 09/27/2024 3:36 PM Scope Withdrawal Time: 0 hours 8 minutes 40 seconds Scope In: 3:38:28 PM Scope Out: 3:49:44 PM Endoscopy Department at [facility] - [address] [place] [id number] IMPRESSION: - Two 3 to 6 mm polyps in the transverse colon and in the ascending colon, removed with a cold snare. Resected and retrieved. - One diminutive polyp in the descending colon, removed with a jumbo cold forceps. Resected and retrieved. - Diverticulosis in the sigmoid colon and in the descending colon. - Internal hemorrhoids. - The examination was otherwise normal. Recommendation: - Discharge patient to home. - Await pathology results. - No repeat colonoscopy due to age. Delgado Hicks MD GI~PROCEDURE ORDERABLES Fin al Result * (ABNORMAL) Lipid panel with reflex to direct LDL (08/22/2024 11:12 AM EST) Cholesterol 136 0 - 200 mg/dL LAB CHEMISTRY METHOD 08/22/2024 5:18 PM EST [facility] Triglycerides 115 0 - 150 mg/dL LAB CHEMISTRY METHOD 08/22/2024 5:18 PM EST [facility] HDL 39(L) >=40 mg/dL LAB CHEMISTRY METHOD 08/22/2024 5:18 PM EST [facility] LDL Calculated 74 0 - 100 mg/dL LAB CHEMISTRY METHOD 08/22/2024 5:18 PM EST [facility] VLDL Cholesterol Fredrick 23 mg/dL LAB CHEMISTRY METHOD 08/22/2024 5:18 PM EST [facility] Non HDL Chol. (LDL+VLDL) 97 <145 mg/dL LAB CHEMISTRY METHOD 08/22/2024 5:18 PM EST [facility] Chol/HDL Ratio 3.5 0.0 - 4.4 LAB CHEMISTRY METHOD 08/22/2024 5:18 PM EST [facility] Blood Venous blood specimen / Unknown Venipuncture / Unknown 08/22/2024 11:12 AM EST 08/22/2024 11:12 AM EST us Josette Fajardo MD LAB BLOOD ORDERABLES Final Resul t [facility] [address] [place] [address], from Last 3 Months or Most Recently Relevant to Health Maintenance Insurance MEDICARE [facility] Advance Directives Documents on File Type Date Recorded Patient Client Finance Analyst Expl anation Advance Directives and Living Will [...] Jenkins Spouse Health Care Agent Care Teams Marketing Sales Consultant Relationship Specialty Start Date End Date Josette Fajardo MD [address] [place] [address] PCP - General Internal Medicine 03/31/21
--- OUTSIDE RECORDS SUMMARY | 2025-02-25 12:29 | XMS_ITS ---
Author Name [facility] Organization Unknown Care Team Organization Name Specialty Phone Email Start Date End Da te [facility] Josette Fajardo Primary Care 05/25/2022 4
--- OUTSIDE RECORDS SUMMARY | 2025-02-25 12:29 | XMS_ITS ---
Author Organization [facility] Address [address] [place] [address] Care Team Providers Care Cissp Name Role Phone Josette Fajardo MD Primary Care Provider [phone] Active Problems Problem Noted Date Diagnosed Date [...] treatments are documented for this patient in [facility]. Treatments may have been administered in another system.
--- OUTSIDE RECORDS SUMMARY | 2025-02-25 12:29 | XMS_ITS | Clinical Summary ---
Author Organization [facility] Address [address] [phone] Phone Care Team Providers Care Apprenticeship Training Representative Name Role Phone Josette Fajardo MD Primary Care Provider [phone] Allergies Active Allergy Reactions Criticality Noted Date [...] and 100 mg in the evening. Active albuterol HFA (PROVENTIL HFA;VENTOLIN HFA) 108 (90 Base) MCG/ACT inhalerIndicati ons:Wheezing Inhale 2 puffs every 6 (six) hours if needed for wheezing 18 g 5 Active losartan (COZAAR) 25 MG tabletIndicatio ns:Hypertension ,Proteinuria Take 25 mg by mouth 1 (one) time each day Active Active Problems Problem Noted Date Diagnosed [...] bladder 11/08/2017 02/15/2022 Urine cytology abnormal 11/08/2017 08/0 07/2021 Malignant neoplastic disease 09/30/2016 02/15/2022 Overview (02/15/2022): [...] the lumbar spine Talipes equinovarus 05/29/2009 02/16/20 Hyperlipidemia 02/15/2006 02/15/2022 Overview (02/15/2022): Last Assessment & Plan: Last lipid panel 11/06 total cholesterol 127, HDL 36, LDL 40. Goal LDL is less than 70. Continue statin. Major depressive disorder 02/15/2006 Encounters Date Type Department Care Team Description 02/15/2025 Orders Only [facility] [address] [phone] Niya Kimball ARNP Stage 3b chronic kidney disease (HCC); Hypertension; Anemia in chronic kidney disease; Persistent proteinuria from Last 3 Months Immunizations Immunization Administration Dates Next Due Influenza Split High [...] Sign Reading Time Taken Comments Blood Pressure 118/80 09/25/2024 10:42 AM EDT Pulse 81 09/25/2024 10:23 AM EDT Temperature - - Respiratory Rate - - Oxygen Saturation 97% 09/25/2024 10:23 AM EDT Inhaled Oxygen Concentration - - Weight 75.3 kg (166 lb) 09/25/2024 10:23 AM EDT Height - - Body Mass Index - - Plan of Treatment Upcoming Encounters Date Type Department Care Team (Late st Contact Info) Description 05/01/2025 3:00 PM EDT Office Visit [facility] [address] [phone] Niya Kimball ARNP [address] [phone] Health Maintenance Due Date Last Done Comments Colorectal Cancer Screening: Annual FOBT 1999 Colorectal Cancer Screening: Colonoscopy 1999 Colorectal Cancer Screening: Sigmoidoscopy 1999 Influenza Vaccine (#1) 2025 3, 04/29/2022, 05/04/2021, Additional history exists Pneumococcal Vaccine: 50+ Years Completed 01/31/2024, 08/11/2018, 09/30/2016 Hepatitis B Vaccine Aged Out No longe r eligible based on patient's age to complete this topic Insurance Medicare [facility] Medicare [facility] Care Teams Apprenticeship Training Representative Relationship Specialty Start Date End Date Josette Fajardo MD [address] [place] [address] PCP - General Internal Medicine 09/25/24
== END 2025-02-25 12:26 | disposition home or self-care (01) ==
LOC: HO.HOP 11:59
PROVIDERS: PCP Internal Medicine; Visit Provider Psychiatry & Neurology Psychiatry
DX: F32.5 Major depressive disorder, single episode, in full remission (principal); C67.9 Malignant neoplasm of bladder, unspecified; C64.9 Malignant neoplasm of unspecified kidney, except renal pelvis
CPT/HCPCS: 99214

== ENCOUNTER → 2025-02-25 11:59 | Outpatient (BNVA) | payer MEDICARE, SELFPAY | PROVIDERS: PCP Internal Medicine; Visit Provider Psychiatry & Neurology Psychiatry | DX: F32.5 Major depressive disorder, single episode, in full remission (principal); C67.9 Malignant neoplasm of bladder, unspecified; C64.9 Malignant neoplasm of unspecified kidney, except renal pelvis | CPT/HCPCS: 99212 ==

== ENCOUNTER 2025-06-24 11:00 | Outpatient (AMB) | payer MEDICARE, SELFPAY ==
--- NOTE | 2025-06-24 11:17 | A.OFFPSYCH_ITS ---
Intake Intake Visit Reasons: depression Allergies sulfamethoxazole (From Bactrim) Allergy (Intermediate, Verified 03/30/24 09:49) Hives trimethoprim (From Bactrim) Allergy (Intermediate, Verified 03/30/24 09:49) Hives HPI- Psychiatric Chief Complaint: depression HPI Narrative: Patient seen in psychiatric follow-up. Patient's mood has been stable continues on sertraline 200 mg lorazepam 0.5 mg PRN has been using irregularly no longer using on a daily basis. Cancer follow-up has shown no recurrence. Patient not drinking without panic attacks no depressive symptoms. Getting along well with his . Past Psychiatric History: hx of depression panic past hx alcohol use has been stable x years 1 prior adm Mental Status Exam Mental Status Exam Narrative: Mental Status Exam Mental Status Exam Narrative: Mental Status Exam Narrative: Appearance: Casually dressed Behavior: Cooperative appropriate psychomotor: Mild balance problems Speech: Normal volume and prosody Thought proccess logical and goal-directed Thought content: Future oriented focused on treatment Mood: Euthymic Affect: Appropriate to mood full affect SI:denies HI:denies VH/AH:none Delusions: None Insight/judgment: Good insight and judgment Memory/cog: Intact Assessment and Plan Assessment & Plan (1) Major depression in full remission: Status: Acute Code(s): F32.5 - Major depressive disorder, single episode, in full remission Plan Patient stable continue plan of care. Patient physically and mentally seems generally in good shape continue sertraline Lorazepam PRN patient has been limiting it we did discuss lowering sertraline 200 mg daily Medications: Changed From sertraline 150 mg (1.5 x 100 mg) PO QAM 3 months 135 tabs 1RF To sertraline 100 mg PO QAM 90 tabs 1RF 3 months Counseling and coordination of Care Pt. Self Management counseling: Maintenance-social rhythm and Behavior activation Medication management counseling: Effectiveness, Side effects and Dosing range Diagnosis and Prognosis Counseling: Accuracy of diagnosis, Prognosis over time and Adequacy of current interventions Details: I spent [30] minutes reviewing the record, seeing the patient and documenting in the medical record. Counseling provided to the patient/caregiver as outlined below. Addressed patient/caregiver concerns regarding current medication regime including effective adherence. Addressed patient/caregiver concerns regarding diagnosis and prognosis including accuracy of diagnosis, prognosis over time, impact of diagnosis. Addressed patient/caregiver concerns regarding impact of recent stressors. [facility] Medical History (Updated 06/30/25 @ 20:19 by Qamar Pruitt MD) Major depression in full remission Anemia Elevated cholesterol CAD (coronary artery disease) Atrial fibrillation Bladder cancer Renal cancer Major depression Osteoarthritis of right hip Osteoarthritis Chronic kidney disease HTN (hypertension) Surgical History Hx of cystoscopy H/O colonoscopy History of surgery History of right nephrectomy History of permanent cardiac pacemaker placement S/P lumbar spinal fusion History of heart artery stent Social History Household Members: Spouse Housing: House Are you a primary medicare contact specialist to a significant other at home: No Do you presently have visiting nurse or other home services: No Patient Tobacco Use Status: Former Tobacco user Tobacco use type: Cigarette Years Smoked: 40 Advance Directives Date on File: 12/29/22 Social History: fam hx cancer mther anxiety depression 1 brother 2 children used work manufacturing Substance History: past alcohol Trauma History: none Coding Level of Care Code Est Pt Level 4 (10626) Diagnoses Major depression in full remission F32.5
== END 2025-06-24 11:32 | disposition home or self-care (01) ==
LOC: HO.HOP 11:00
PROVIDERS: PCP Internal Medicine; Visit Provider Psychiatry & Neurology Psychiatry
DX: F32.5 Major depressive disorder, single episode, in full remission (principal)
CPT/HCPCS: 99214

== ENCOUNTER → 2025-06-24 11:00 | Outpatient (BNVA) | payer MEDICARE, SELFPAY | PROVIDERS: PCP Internal Medicine; Visit Provider Psychiatry & Neurology Psychiatry | DX: F32.5 Major depressive disorder, single episode, in full remission (principal) | CPT/HCPCS: 99212 ==